=== PATIENT | male | born 1950 | race Caucasian/White ===

== ENCOUNTER 2017-06-11 08:38 | Emergency (ER) | payer OTHER ==
[~2017-06-11] VITALS: Ht 177.8 cm; Wt 62.9 kg
[2017-06-11 08:55] VITALS: Ht 177.8 cm; Wt 62.9 kg
[2017-06-11] MEDS ORDERED: METHYLPREDNISOLONE 125 MG VIAL IV STA (10:16)
[2017-06-11] MEDS ORDERED: ACETAMINOPHEN 325 MG TAB PO STA (10:16)
[2017-06-11] MEDS ORDERED: KETOROLAC TROMETHAMINE 30 MG/ML VIAL IV STA (10:16)
--- NOTE | 2017-06-11 10:22 | EMERGENCY ROOM VISIT NOTE ---
History Report prepared by Nakul: Liliana Rae Under the Supervision of: Dr. Frederic Enrique M.D. First contact with patient: 09:31 Chief Complaint: BACK PAIN Stated Complaint: BACK PAIN/INJURY, CONSTIPATION History of Present Illness The patient is a 67 year old white male with a past medical history of prostate infection who presents to the ED with a cc of worsening lower back pain beginning 6 days ago. Positive constipation, urinary frequency, passing gas. Negative fever, chills, unintended weight loss, numbness. 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 He had lower back pain previously with a prostate infection, but this pain is different. He had a small bowel movement yesterday. He has not had any falls. Patient admits to occasional alcohol use and chewing tobacco use. Patient denies IV drug use. Patient is currently not on any medications. Source of History: patient Onset: 6 days ago Position: back (lower) Quality: other (pain) Timing: worsening Associated Symptoms: + urinary symptoms, No fevers, No chills, No numbness Note: Pt reports constipation. Review of Systems See HPI for pertinent positives and negatives. A total of ten systems were reviewed and were otherwise negative. Family History Diabetes mellitus Heart disease Hypertension Social History Smoking Status: Never Smoker Marital Status: Occupation Status: employed Current/Historical Medications Scheduled Acetaminophen (Tylenol Arthritis Ext Rel), 325 MG PO UD Prednisone (Prednisone), 50 MG PO DAILY Ranitidine Hcl (Zantac), 75 MG PO DAILY Allergies Coded Allergies: Penicillins (Verified Allergy, Unknown, 06/11/17) Physical Exam Vital Signs Date Time Temp Pulse Resp B/P (MAP) Pulse Ox O2 Delivery O2 Flow Rate FiO2 06/11/17 10:59 48 18 169/91 98 Room Air 06/11/17 08:55 36.7 110 20 153/88 99 Room Air Physical Exam GENERAL: Awake, alert, well-appearing, NAD HENT: Normocephalic, atraumatic. EYES: Normal conjunctiva. Sclera non-icteric. NECK: Supple. No nuchal rigidity. FROM. RESPIRATORY: CTAB, no rhonchi, wheezing, crackles CARDIAC: RRR, no MRG ABDOMEN: Soft, NTND, BS+ MSK: No chest wall TTP, no LE edema, bilateral low back pain, no midline TTP, negative SLR b/l, negative ANNELISE test b/l, no pain with internal external rotation, good AROM/PROM, motor and sensory intact in b/l LEs, no saddle anesthesia. NEURO: GCS 15, CN 2-12 intact, moves all 4s on command SKIN: No rash or jaundice noted. Medical Decision & Procedures Laboratory Results 06/11/17 10:45 Red Blood Count 4.72, Mean Corpuscular Volume 93.2, Mean Corpuscular Hemoglobin 31.4, Mean Corpuscular Hemoglobin Concent 33.6, Mean Platelet Volume 9.4, Neutrophils (%) (Auto) 58.5, Lymphocytes (%) (Auto) 27.2, Monocytes (%) (Auto) 13.2, Eosinophils (%) (Auto) 0.7, Basophils (%) (Auto) 0.2, Neutrophils # (Auto ) 2.67, Lymphocytes # (Auto) 1.24, Monocytes # (Auto) 0.60, Eosinophils # (Auto ) 0.03, Basophils # (Auto) 0.01 06/11/17 10:45 Test 06/11/17 10:45 06/11/17 11:00 White Blood Count 4.56 K/uL (4.8-10.8) Red Blood Count 4.72 M/uL (4.7-6.1) Hemoglobin 14.8 g/dL (14.0-18.0) Hematocrit 44.0 % (42-52) Mean Corpuscular Volume 93.2 fL (80-100) Mean Corpuscular Hemoglobin 31.4 pg (25-34) Mean Corpuscular Hemoglobin Concent 33.6 g/dl (32-36) Platelet Count 196 K/uL (130-400) Mean Platelet Volume 9.4 fL (7.4-10.4) Neutrophils (%) (Auto) 58.5 % Lymphocytes (%) (Auto) 27.2 % Monocytes (%) (Auto) 13.2 % Eosinophils (%) (Auto) 0.7 % Basophils (%) (Auto) 0.2 % Neutrophils # (Auto) 2.67 K/uL (1.4-6.5) Lymphocytes # (Auto) 1.24 K/uL (1.2-3.4) Monocytes # (Auto) 0.60 K/uL (0.11-0.59) Eosinophils # (Auto) 0.03 K/uL (0-0.5) Basophils # (Auto) 0.01 K/uL (0-0.2) RDW Standard Deviation 45.7 fL (36.4-46.3) RDW Coefficient of Variation 13.4 % (11.5-14.5) Immature Granulocyte % (Auto) 0.2 % Immature Granulocyte # (Auto) 0.01 K/uL (0.00-0.02) Anion Gap 4.0 mmol/L (3-11) Est Creatinine Clear Calc Drug Dose 75.0 ml/min Estimated GFR () 104.5 Estimated GFR (Non- 90.2 BUN/Creatinine Ratio 10.0 (10-20) Calcium Level 9.4 mg/dl (8.5-10.1) Urine Color YELLOW Urine Appearance CLEAR (CLEAR) Urine pH 7.5 (4.5-7.5) Urine Specific [place] 1.008 (1.000-1.030) Urine Protein NEG (NEG) Urine Glucose (UA) NEG (NEG) Urine Ketones NEG (NEG) Urine Occult Blood NEG (NEG) Urine Nitrite NEG (NEG) Urine Bilirubin NEG (NEG) Urine Urobilinogen NEG (NEG) Urine Leukocyte Esterase NEG (NEG) Urine WBC (Auto) 0 /hpf (0-5) Urine RBC (Auto) 0-4 /hpf (0-4) Urine Hyaline Casts (Auto) 0 /lpf (0-5) Urine Epithelial Cells (Auto) 0-5 /lpf (0-5) Urine Bacteria (Auto) NEG (NEG) Laboratory results reviewed by me Medications Administered Medications (Trade) Dose Ordered Sig/Latasha Route Start Time Stop Time Status Last Admin Dose Admin Methylprednisolone Sodium Succinate (Solu-Medrol IV) 125 mg NOW STAT IV 06/11/17 10:16 06/11/17 10:17 DC 06/11/17 10:58 125 MG Ketorolac Tromethamine (Toradol Inj) 30 mg NOW STAT IV 06/11/17 10:16 06/11/17 10:17 DC 06/11/17 10:58 30 MG Acetaminophen (Tylenol Tab) 650 mg NOW STAT PO 06/11/17 10:16 06/11/17 10:17 DC 06/11/17 10:59 650 MG Diazepam (Valium Tab) 5 mg NOW ONCE PO 06/11/17 10:30 06/11/17 10:31 DC 06/11/17 10:59 5 MG ED Course 0954: The patient was evaluated in room A12B. A complete history and physical exam was performed. 1209: I reevaluated the patient. I discussed results and discharge instructions : he verbalized understanding and agreement. The patient is ready for discharge. Medical Decision Differential diagnosis: Etiologies such as musculoskeletal, disc herniation, fracture, aortic disease, metastatic disease, cord compression, discitis, infection, renal colic, gastrointestinal, acute exacerbation of chronic back pain, sciatica, cauda equina, as well as others were entertained. The patient is a 67 year old white male with a past medical history of prostate infection who presents to the ED with a cc of worsening lower back pain beginning 6 days ago. Patient was seen and evaluated at the bedside. Patient did not have any other high-risk low back pain sounds and was likely related to his recent lifting of trashbags. Patient had fairly normal blood work and a negative urinalysis. Patient did not have any fevers or chills or urinary or bowel incontinence. Patient had no saddle anesthesia. Patient's pain was much improved and he was actively sleeping upon reassessment. Patient was given strict follow-up, discharge, return precautions as well as reasons to come back. Patient was told to follow-up with his PCP for possible physical therapy and/or an orthopedic referral if needed. Patient agreed with plan of care patient was discharged home. Medication Reconcilliation Current Medication List: was personally reviewed by me Blood Pressure Screening Patient's blood pressure: Elevated blood pressure Blood pressure disposition: Referred to PCP Impression Primary Impression: Strain of lumbar region Scribe Attestation The scribe's documentation has been prepared under my direction and personally reviewed by me in its entirety. I confirm that the note above accurately reflects all work, treatment, procedures, and medical decision making performed by me. Departure Information Dispostion Home / Self-Care Prescriptions Ranitidine Hcl (ZANTAC) 75 Mg Tab 75 MG PO DAILY for 30 Days, #30 TAB Prov: Frederic Enrique M.D. 06/11/17 Prednisone (PREDNISONE) 50 Mg Tab 50 MG PO DAILY for 4 Days, TAB Prov: Frederic Enrique M.D. 06/11/17 Referrals Domingo Hoffman M.D. (PCP) Patient Instructions Back Pain - [facility], Back Pain Relieve, ED Low Back Pain Injury, Exercises Back Seated Rotation, Exercises Back Side Stretch, Exercises Lower Back Rotation, Addvocate Additional Instructions Please return to the emergency department if you have worsening or recurrent symptoms not amenable to at-home treatment. Please call for a follow-up appointment with her primary care physician. Please take your medications as prescribed. If you have other concerns and/or complaints please feel free to also call your primary care physician's office or return the ED for further evaluation, management, and treatment. You were found to have an elevated blood pressure today (>120 sytolic or >90 diastolic). Per medicare guidelines, you need to follow up with this blood pressure screening with your Primary Care Physician (PCP). For a new PCP call [phone]. You received narcotic or benzodiazepene medication while in the emergency room today. This is an addictive medication that may cause drowziness as well as constipation. Do not drive, operate heavy machinery, or drink alcohol under the influence of this medication. You may take 600 mg Ibuprofen every 6 hours as needed for pain with food for no more than 2 consecutive days. You may take tylenol 1000mg every 6 hours as needed for pain. You may take motrin and tylenol separately or at the same time. Continue strengthening exercises and stretches as you are able and discuss f/u w / PCP for physical therapy and or f/u w/ an orthopedist. You have been examined and treated today on an emergency basis only. This is not a substitute for, or an effort to provide, complete comprehensive medical care. It is impossible to recognize and treat all injuries or illnesses in a single emergency department visit. It is therefore important that you follow up closely with [facility]. Call as soon as possible for an appointment. Thank you for your time and consideration. I look forward to speaking with you again soon. Please don't hesitate to call us if you have any questions. Work Instructions Return To Work: 1 day Problem Qualifiers Primary Impression: Strain of lumbar region Encounter type: initial encounter Qualified Codes: S39.012A - Strain of muscle, fascia and tendon of lower back, initial encounter
[2017-06-11] MEDS ORDERED: DIAZEPAM 5MG TAB PO ONE (10:30)
[2017-06-11] MEDS ORDERED: ACET1TAB84 PO (10:49)
[2017-06-11 11:00] LABS: BASO % 0.2 %; BASO ABS # 0.01 K/uL (0-0.2); COMPLETE YES; EOS % 0.7 %; IG% 0.2 %; LYMPH % 27.2 %; LYMPH ABS # 1.24 K/uL (1.2-3.4); MEAN CELL VOLUME 93.2 fL (80-100); MEAN CORPUSCULAR HEMOGLOBIN 31.4 pg (25-34); MEAN CORPUSCULAR HGB CONC 33.6 g/dl (32-36); MEAN PLATELET VOLUME 9.4 fL (7.4-10.4); MONO % 13.2 %; NEUT % 58.5 %; PLATELET COUNT 196 K/uL (130-400); RED BLOOD COUNT 4.72 M/uL (4.7-6.1); WHITE BLOOD COUNT 4.56 K/uL (4.8-10.8)
[2017-06-11 11:16] LABS: CALCIUM 9.4 mg/dl (8.5-10.1); CREATININE 0.85 mg/dl (0.60-1.40); POTASSIUM 3.9 mmol/L (3.5-5.1)
[2017-06-11 11:38] LABS: URINE APPEARANCE CLEAR (CLEAR); URINE BILIRUBIN NEG (NEG); URINE COLOR YELLOW; URINE EPITHELIAL CELL AUTO 0-5 /lpf (0-5); URINE NITRITE NEG (NEG); URINE PH 7.5 (4.5-7.5); URINE SPECIFIC GRAVITY 1.008 (1.000-1.030); UROBILINOGEN NEG (NEG); ZZUR CULT IF INDIC CLEAN CATCH NO
[2017-06-11 11:40] LABS: MANUAL MICROSCOPIC REQUIRED? NO; REVIEW REQ? NO
[2017-06-11] MEDS ORDERED: RANITAB33 PO (12:17)
[2017-06-11] MEDS ORDERED: PRED50TA PO (12:17)
[2017-06-11 12:45] VITALS: BP 145/89; PULSE 55; TEMP 36.7; O2SAT 98
== END 2017-06-11 13:05 | disposition home or self-care (01) ==
LOC: C.EDB 08:44 → C.EDA 13:05
DX: S39.012A Strain of muscle, fascia and tendon of lower back, initial encounter (principal); X58.XXXA Exposure to other specified factors, initial encounter; Z88.0 Allergy status to penicillin; Z83.3 Family history of diabetes mellitus; Z82.49 Family history of ischemic heart disease and other diseases of the circulatory system

== ENCOUNTER 2017-10-09 11:11 | Inpatient (IN) | payer OTHER ==
[~2017-10-09] VITALS: Ht 177.8 cm; Wt 59.1 kg
[2017-10-09] VITALS (35 sets, daily range): BP systolic 103–171; BP diastolic 58–94; PULSE 58–98; TEMP 36.9; O2SAT 93–100; Ht 177.8 cm; Wt 59.1 kg
[~2017-10-09 11:11] MED LIST: ACET1TAB84 PO
[2017-10-09] MEDS ORDERED: SODIUM CHLORIDE 0.9% 1000ML 1,000 ML IV SCH (11:12)
--- NOTE | 2017-10-09 11:39 | DIAGNOSTIC IMAGING REPORT ---
CT HEAD WITHOUT CONTRAST (CT) CLINICAL HISTORY: Stroke COMPARISON STUDY: No previous studies for comparison. TECHNIQUE: Axial CT of the brain is performed from the vertex to the skull base. IV contrast was not administered for this examination. A dose lowering technique was utilized adhering to the principles of ALARA. CT DOSE: FINDINGS: No intra or extra-axial mass lesions are visualized. There is no CT evidence of acute cortical infarction. There is no evidence of midline shift. There is no acute hemorrhage. No calvarial fractures are visualized. There are minimal white matter hypodensities likely on a small vessel basis. There is no evidence of pathologic ventricular dilatation. There is no evidence of acute sinusitis IMPRESSION: No acute intracranial findings Electronically signed by: Castro Reyna M.D. 10/09/2017 11:38 AM Dictated Date/Time: 10/09/2017 11:37 AM
[2017-10-09 11:41] LABS: BASO % 0.1 %; BASO ABS # 0.01 K/uL (0-0.2); EOS % 0.1 %; EOS ABS # 0.01 K/uL (0-0.5); HEMATOCRIT 43.8 % (42-52); HEMOGLOBIN 15.2 g/dL (14.0-18.0); IG# 0.01 K/uL (0.00-0.02); LYMPH % 13.8 %; LYMPH ABS # 0.99 K/uL (1.2-3.4); MEAN CELL VOLUME 92.8 fL (80-100); MEAN CORPUSCULAR HEMOGLOBIN 32.2 pg (25-34); MEAN CORPUSCULAR HGB CONC 34.7 g/dl (32-36); MEAN PLATELET VOLUME 9.9 fL (7.4-10.4); MONO % 4.1 %; MONO ABS # 0.29 K/uL (0.11-0.59); NEUT % 81.8 %; NEUT ABS # 5.85 K/uL (1.4-6.5); PLATELET COUNT 203 K/uL (130-400); RED CELL DISTRIBUTION WIDTH CV 13.7 % (11.5-14.5); RED CELL DISTRIBUTION WIDTH SD 46.7 fL (36.4-46.3); WHITE BLOOD COUNT 7.16 K/uL (4.8-10.8)
[2017-10-09 11:51] LABS: PTT PATIENT 22.9 SECONDS (21.0-31.0)
--- NOTE | 2017-10-09 11:55 | EMERGENCY ROOM VISIT NOTE ---
History Report prepared by Nakul: Jarred De La Cruz Under the Supervision of: Brian PzaO. First contact with patient: 11:12 Stated Complaint: CVA SYMPTOMS History of Present Illness The patient is a 67 year old male who presents to the Emergency Room with complaints of constant left sided weakness occurring around 0930 this morning. The patient states that he was picking up garbage outside, and he got some chest pain around 0800. Afterwards he became weak on his left side. The patient additionally states that he had neck pain, though this has resolved, and he is having some left knee pain and confusion. He states that prior to the weakness and pain he was feeling fine this morning. The patient states that the pain in his left chest does not radiate anywhere else. He has no history of strokes in the past. The patient states that he smokes some cigarettes in the morning, he uses chewing tobacco, and he drinks a couple of beers per day. The patient is denying any abdominal pain or back pain. Source of History: patient Onset: 0800 Position: other (left side) Quality: other (weakness) Timing: constant Associated Symptoms: + neck pain, + chest pain, No abdominal pain, No back pain Review of Systems See HPI for pertinent positives & negatives. A total of 10 systems reviewed and were otherwise negative. Past Medical & Surgical Medical Problems: (1) Prostate infection Family History Diabetes mellitus Heart disease Hypertension Social History Smoking Status: Never Smoker Marital Status: Housing Status: lives with family Occupation Status: retired Current/Historical Medications Scheduled Acetaminophen (Tylenol Arthritis Ext Rel), 325 MG PO UD Allergies Coded Allergies: Penicillins (Verified Allergy, Unknown, 10/09/17) Physical Exam Vital Signs Date Time Temp Pulse Resp B/P (MAP) Pulse Ox O2 Delivery O2 Flow Rate FiO2 10/09/17 13:30 74 153/87 10/09/17 13:18 79 163/88 10/09/17 13:01 82 18 168/98 10/09/17 12:44 84 151/92 10/09/17 12:30 84 18 149/81 10/09/17 12:15 87 18 156/94 10/09/17 12:05 90 18 175/99 10/09/17 11:55 90 18 180/111 10/09/17 11:42 80 20 150/88 100 Room Air 10/09/17 11:40 83 10/09/17 11:26 36.5 79 22 182/90 99 Room Air Physical Exam GENERAL: Patient is awake, alert, somewhat anxious appearing but overall comfortable. EYES: The conjunctivae are clear. The pupils are round and reactive. EARS, NOSE, MOUTH AND THROAT: The nose is without any evidence of any deformity. Mucous membranes are moist tongue is midline NECK: No bruit to auscultation. The neck is nontender and supple. RESPIRATORY: Normal respiratory effort is noted there is no evidence of wheezing rhonchi or rales CARDIOVASCULAR: Regular rate and rhythm noted there no murmurs rubs or gallops normal S1 normal S2 GASTROINTESTINAL: The abdomen is soft. Bowel sounds are present in all quadrants. Abdomen is nontender MUSCULOSKELETAL/EXTREMITIES: There is no evidence of gross deformity full range of motion is noted in the hips and shoulders SKIN: Skin is warm and diaphoretic. No pedal edema noted. NEUROLOGIC: Speech was pressured. There was a questionable facial droop noted on the left involving the corner of the mouth. 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 He is unable to lift the left leg. Medical Decision & Procedures ER Provider Diagnostic Interpretation: Radiology results as stated below per my review and radiologist interpretation: CT HEAD WITHOUT CONTRAST (CT) CLINICAL HISTORY: Stroke COMPARISON STUDY: No previous studies for comparison. TECHNIQUE: Axial CT of the brain is performed from the vertex to the skull base. IV contrast was not administered for this examination. A dose lowering technique was utilized adhering to the principles of ALARA. CT DOSE: FINDINGS: No intra or extra-axial mass lesions are visualized. There is no CT evidence of acute cortical infarction. There is no evidence of midline shift. There is no acute hemorrhage. No calvarial fractures are visualized. There are minimal white matter hypodensities likely on a small vessel basis. There is no evidence of pathologic ventricular dilatation. There is no evidence of acute sinusitis IMPRESSION: No acute intracranial findings Electronically signed by: Castro Reyna M.D. 10/09/2017 11:38 AM Dictated Date/Time: 10/09/2017 11:37 AM CHEST ONE VIEW PORTABLE HISTORY: Stroke COMPARISON: Chest 07/18/2010. FINDINGS: No pleural effusions. No pneumothorax. The heart is normal in size. The lungs are clear. The lungs are mildly hyperexpanded. IMPRESSION: No acute process. Electronically signed by: Gallo Stafford M.D. 10/09/2017 12:08 PM Dictated Date/Time: 10/09/2017 12:[address] ANGIOGRAM OF THE CHEST COMBO CLINICAL HISTORY: Atypical chest pain. COMPARISON STUDY: Chest x-ray dated 10/09/2017. TECHNIQUE: Before and following the IV administration of 119 cc of Optiray 320, CT angiogram of the chest was performed from the thoracic inlet to the upper abdomen utilizing the dissection protocol. Images are reviewed in the axial, sagittal, and coronal planes. 3-D MIPS images are created and assessed. IV contrast was administered without complication. A dose lowering technique was utilized adhering to the principles of ALARA. The examination is degraded by streak artifact from the patient's arms which could not be elevated above the chest. FINDINGS: Thyroid: Imaged portions of the thyroid gland are normal in size and attenuation. Thoracic aorta: No intramural hematoma is seen on the unenhanced series. There is mild atherosclerotic calcification of the thoracic aorta, which is normal in caliber and demonstrates standard 3-vessel arch anatomy. No dissection is seen. The arch vessels are widely patent. Pulmonary vasculature: The pulmonary trunk is normal in caliber. There are no central filling defects identified in the pulmonary vessels to suggest pulmonary embolus. Note that this examination was not specifically protocoled to assess for pulmonary emboli. Heart: The heart is normal in size and without pericardial effusion. There are coronary artery calcifications. Lungs and pleural spaces: Evaluation of the lung parenchyma is modestly degraded by motion artifact. Mild emphysematous change is noted. Biapical scarring is observed. There is minimal dependent atelectasis. No airspace consolidation or pleural effusion is seen. The trachea and central airways are clear. A 6 mm right middle lobe pulmonary nodule is seen on image #177 of the unenhanced series. A small fat-containing Bochdalek hernia is seen at the right lung base. Mediastinum: There is no mediastinal lymphadenopathy. Merlene: Clear. Axillae: There is no axillary lymphadenopathy. Upper abdomen: Partially visualized upper abdominal viscera is within normal limits. Skeletal structures: No lytic or blastic bony lesions are seen. Fusion hardware is seen in the lower cervical region. IMPRESSION: 1. Unremarkable CT angiogram of the thoracic aorta. 2. Mild emphysema. 3. No airspace consolidation or pleural effusion is identified. 4. There is an indeterminant 6 mm right middle lobe pulmonary nodule. This can be followed as per the Fleischner criteria. See below. 5. Additional findings as above. Please refer to below summary of Fleischner criteria recommendations for follow-up of incidental CT nodules (Prateek Dodson, Guidelines for management of small pulmonary nodules detected on CT scans: A statement from the Fleischner Society, Radiology 237: [phone].) SOLID NODULES Solitary nodule size: <6 mm * low risk patients: no follow-up needed * high risk patients: optional CT at 12 months Solitary nodule size: 6-8 mm * low risk patients: follow-up at 6-12 months, then consider further follow-up at 18-24 months * high risk patients: initial follow-up CT at 6-12 months and then at 18-24 months if no change Solitary nodule size: >8 mm * either low or high risk patients - consider follow-up CT at 3 months, and/or CT-PET, and/or biopsy Multiple nodules size: <6 mm * low risk patients: no routine follow-up * high risk patients: optional CT at 12 months Multiple nodules size: 6-8 mm * low risk patients: follow-up at 3-6 months, then consider further follow-up at 18-24 months * high risk patients: follow-up at 3-6 months, then at 18-24 months if no change Multiple nodules size: >8 mm * low risk patients: follow-up at 3-6 months, then consider further follow-up at 18-24 months * high risk patients: follow-up at 3-6 months, then at 18-24 months if no change Note: newly detected indeterminate nodule in persons 35 years of age or older. * low risk patients: minimal or absent history of smoking and/or other known risk factors * high risk patients: history of smoking or of other known risk factors (e.g. first degree relative with lung cancer, or exposure to asbestos, radon, uranium) * if a nodule up to 8 mm is partly solid or is ground glass further follow-up is required after 24 months to exclude possible slow growing adenocarcinoma (ALEXIS) SUBSOLID NODULES Solitary pure ground-glass nodule * nodule size <6 mm - no CT follow-up required * nodule size >=6 mm - follow-up CT at 6-12 months, then every 2 years until 5 years Solitary part-solid nodule * nodule size <6 mm - no CT follow-up required * nodule size >=6 mm - follow-up CT at 3-6 months. If unchanged, and solid component remains <6 mm, then annual follow-up for 5 years Multiple subsolid nodules * nodule size <6 mm - follow-up CT at 3-6 months, consider further follow-up at 2 and 4 years if stable * nodule size >=6 mm - follow-up CT at 3-6 months, subsequent management based on the most suspicious nodule(s) Electronically signed by: Fidencio Peng M.D. 10/09/2017 11:56 AM Dictated Date/Time: 10/09/2017 11:[address] ANGIOGRAM OF THE BRAIN CLINICAL HISTORY: Left-sided weakness. COMPARISON STUDY: Unenhanced CT of the brain dated 10/09/2017. TECHNIQUE: Following the IV administration of 119 cc of Optiray 320, CT angiogram of the brain was performed from the skull base to the vertex. Images are reviewed in the axial, sagittal, and coronal planes. 3-D MIPS images are created and assessed. IV contrast was administered without complication. A dose lowering technique was utilized adhering to the principles of ALARA. FINDINGS: Brain parenchyma: There are age-related involutional changes noting mild subcortical and periventricular microangiopathic disease. There is no hemorrhage, mass effect, or evidence of acute territorial ischemia by CT criteria. There is no evidence of enhancing mass lesion on the angiogram phase images. No extra-axial fluid collection is seen. Flores-white matter differentiation is preserved. Ventricles, sulci, and cisterns: Prominent secondary to involutional change. CT angiogram of the brain: There are tiny posterior communicating arteries. The internal carotid arteries are widely patent, as are the anterior and middle cerebral arteries. The vertebrobasilar system and posterior cerebral arteries are widely patent. The vertebral arteries are codominant. There is no aneurysm, high-grade stenosis, or focal vessel cutoff identified throughout the intracranial circulation. Dural sinuses: Clear as visualized. Orbits: The bony orbits are intact. The orbital contents are normal as visualized. Sinuses and mastoids: The visualized paranasal sinuses are clear. The mastoid air cells are well pneumatized. Calvarium: Unremarkable. IMPRESSION: 1. There is no hemorrhage, mass effect, or evidence of acute territorial ischemia by CT criteria. 2. Unremarkable CT angiogram of the brain. Electronically signed by: Fidencio Peng M.D. 10/09/2017 12:08 PM Dictated Date/Time: 10/09/2017 12:05 PM NECK CTA HISTORY: Left-sided weakness. TECHNIQUE: Multiaxial CT images of the neck were performed following the intravenous administration of contrast to evaluate the major cervical vessels. Maximum intensity projection images were also obtained. All measurements were calculated based on NASCET criteria. A dose lowering technique was utilized adhering to the principles of ALARA. COMPARISON STUDY: None. FINDINGS: The aortic arch and proximal great vessels are widely patent. No central venous stenosis or occlusion within the bilateral common carotid or bilobed vertebral arteries. Mild focal dilatation within the distal left vertebral artery at the C2 level which measures up to 5 mm in diameter. This suggests a small fusiform aneurysm. Moderate amount of calcified and noncalcified plaque within the right carotid bulb a large amount of calcified plaque within the left carotid bulb. There is approximately 50% focal stenosis at the origin of the right internal carotid artery due to the atherosclerotic plaque. There is approximately 40% stenosis at the proximal 1.5 cm of the left internal carotid artery due to the calcified plaque. The mid to distal bilateral internal carotid arteries are widely patent. Anterior cervical discectomy and fusion from C5 through C7. IMPRESSION: 1. Approximately 50% focal stenosis at the origin of the right internal carotid artery and approximately 40% stenosis involving the proximal left internal carotid artery as described above. 2. 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 Electronically signed by: Gallo Stafford M.D. 10/09/2017 11:55 AM Dictated Date/Time: 10/09/2017 11:48 AM Laboratory Results Test 10/09/17 00:00 10/09/17 10:44 10/09/17 11:19 10/09/17 11:26 Urine Color YELLOW Urine Appearance CLEAR (CLEAR) Urine pH 8.5 (4.5-7.5) Urine Specific [place] 1.029 (1.000-1.030) Urine Protein NEG (NEG) Urine Glucose (UA) NEG (NEG) Urine Ketones TRACE (NEG) Urine Occult Blood NEG (NEG) Urine Nitrite NEG (NEG) Urine Bilirubin NEG (NEG) Urine Urobilinogen NEG (NEG) Urine Leukocyte Esterase SMALL (NEG) Urine WBC (Auto) 1-5 /hpf (0-5) Urine RBC (Auto) 0-4 /hpf (0-4) Urine Hyaline Casts (Auto) 1-5 /lpf (0-5) Urine Epithelial Cells (Auto) 20-30 /lpf (0-5) Urine Bacteria (Auto) NEG (NEG) Urine Opiates Screen NEG (NEG) Urine Methadone, Qualitative NEG (NEG) Urine Barbiturates NEG (NEG) Urine Phencyclidine (PCP) Level NEG (NEG) Ur Amphetamine/Methamphetamine NEG (NEG) MDMA (Ecstasy) Screen NEG (NEG) Urine Benzodiazepines Screen NEG (NEG) Urine Cocaine Metabolite NEG (NEG) Urine Marijuana (THC) NEG (NEG) Prothrombin Time 10.0 SECONDS (9.0-12.0) Prothromb Time International Ratio 1.0 (0.9-1.1) Activated Partial Thromboplast Time 22.9 SECONDS (21.0-31.0) Partial Thromboplastin Ratio 0.9 Estimated Average Glucose 114 mg/dl Hemoglobin A1c 5.6 % (4.5-5.6) Creatine Kinase MB 1.2 ng/ml (0.5-3.6) Creatine Kinase MB Ratio 1.3 (0-3.0) Bedside Glucose 122 mg/dl (70-99) Bedside Hemoglobin 17.0 g/dl (14.0-18.0) Bedside Hematocrit 50 % (42-52) Bedside Sodium 135 mEq/L (135-144) Bedside Potassium 4.0 mEq/L (3.3-5.0) Bedside Chloride 100 mEq/L (101-112) Bedside Total CO2 20 mEq/l (24-31) Bedside Blood Urea Nitrogen 13 mg/dl (7-18) Bedside Creatinine 1.4 mg/dl (0.6-1.3) Bedside Glucose (other) 139 mg/dl (70-99) Bedside Ionized Calcium (Deangelo) 1.13 mmol/l (1.12-1.32) Test 10/09/17 11:48 Bedside Prothrombin Time INR 0.9 (0.9-1.1) Laboratory results per my review. Medications Administered Medications (Trade) Dose Ordered Sig/Latasha Route Start Time Stop Time Status Last Admin Dose Admin Alteplase, Recombinant 54 mg/ Empty Bag 54 ml @ 54 mls/hr TODAY@1215 IV 10/09/17 12:15 10/09/17 13:14 DC 10/09/17 12:13 54 MLS/HR Alteplase, Recombinant 6 mg/ Syringe 6 ml @ 6 mls/min TODAY@1215 IV 10/09/17 12:15 10/09/17 14:00 DC 10/09/17 12:11 6 MLS/MIN Sodium Chloride 500 ml @ 999 mls/hr Q31M STAT IV 10/09/17 12:40 10/09/17 13:10 DC 10/09/17 12:43 999 MLS/HR ECG Indication: chest pain, other (stroke symptoms) Rate (beats per minute): 77 Rhythm: normal sinus Findings: peaked T-waves (anterior), no ectopy, other (No acute ST segment abnormality) Comparison ECG Date: 10/11/16 Change: no significant change ED Course 1112: The patient was evaluated in room C4. A complete history and physical examination were performed. I ordered NSS 1,000 ml @ 50 mls/hr IV 1150: I discussed the patient's case with Dr. Phelan, Stroke Neurology, and she is going to talk to the patient via Tele Stroke 1200: I reevaluated the patient, and he was talking to Dr. Phelan 1215: Nicardipine HCl 25mg/ Sodium Chloride IV, Alteplase Recombinant 6mg 6ml @ 6ml/min IV, Alteplase Recombinant 54ml @ 54mls/hr IV 1218: I reassessed the patient, and the TPA was being administered 1240: Upon reevaluation, the patient is doing better and getting some strength back on the left. The patient is going to be evaluated by the hospitalist. 1240: NSS 500 ml @ 999 mls/hr IV Medical Decision Differential diagnosis: Etiologies such as metabolic, infection, hypo/hyperglycemia, electrolyte abnormalities, cardiac sources, intracerebral event, toxicologic, neurologic, as well as others were entertained. Nursing notes reviewed. Additional history is obtained from the prehospital personnel. Additional history is obtained from the patient's significant other. The patient is a 67-year-old male who presented to the emergency department for an evaluation of possible stroke. The patient had acute weakness on his left side when he was at work. The patient had significantly diminished strength in the left upper as well as left lower extremity. He also had pressured speech. His condition was significantly changed from his baseline according to his significant other. The patient also states that he started noticing left-sided chest pain. The patient was made a stroke alert immediately. I was also very concerned that this could represent a vascular abnormality given the patient's onset of symptoms with chest pain. The patient was felt to be a good candidate for TPA after his radiographic studies were reviewed with the [facility] stroke neurologist. The patient received TPA. He was reevaluated multiple times. He was also given IV antihypertensive medication. The patient continued to improve while he was in the emergency department. I discussed the patient's laboratory and radiographic studies with him. I also discussed his case with the on-call [facility] hospitalist. They have agreed to evaluate the patient in the emergency department for further management and disposition. Medication Reconcilliation Current Medication List: was personally reviewed by me Blood Pressure Screening Patient's blood pressure: Elevated blood pressure Monitored by the hospitalist Consults Time Called: 1145 Consulting Physician: Dr. Phelan Returned Call: 1150 I discussed the patient's case with Dr. Phelan, Stroke Neurology, and she is going to talk to the patient via Tele Stroke Impression Primary Impression: Stroke Additional Impression: Chest pain Critical Care I have personally spent greater than 60 minutes of critical care time in the direct management of this patient. This includes bedside care, interpretation of diagnostic studies, and testing, discussion with consultants, patient, and family members, and other required patient management activities. This 60 minutes is in excess of all separately billable procedures. Scribe Attestation The scribe's documentation has been prepared under my direction and personally reviewed by me in its entirety. I confirm that the note above accurately reflects all work, treatment, procedures, and medical decision making performed by me. Departure Information Dispostion Being Evaluated By Hospitalist Referrals Domingo Hoffman M.D. (PCP) Stroke History Time Last Known Well 929 Stroke t-PA Criteria Reviewed Meets criteria for t-PA Reason t-PA Not Given Treatment provided - N/A Problem Qualifiers Primary Impression: Stroke CVA mechanism: unspecified Qualified Codes: I63.9 - Cerebral infarction, unspecified Additional Impression: Chest pain Chest pain type: unspecified Qualified Codes: R07.9 - Chest pain, unspecified
[2017-10-09 11:56] LABS: BLOOD UREA NITROGEN 13 mg/dl (7-18); CARBON DIOXIDE 22 mmol/L (21-32); CREATININE 1.55 mg/dl (0.60-1.40); GLUCOSE 138 mg/dl (70-99); SODIUM 133 mmol/L (136-145)
[2017-10-09 12:01] LABS: CKMB 1.2 ng/ml (0.5-3.6)
--- NOTE | 2017-10-09 12:09 | DIAGNOSTIC IMAGING REPORT ---
CHEST ONE VIEW PORTABLE HISTORY: Stroke COMPARISON: Chest 07/18/2010. FINDINGS: No pleural effusions. No pneumothorax. The heart is normal in size. The lungs are clear. The lungs are mildly hyperexpanded. IMPRESSION: No acute process. Electronically signed by: Gallo Stafford M.D. 10/09/2017 12:08 PM Dictated Date/Time: 10/09/2017 12:08 PM
--- NOTE | 2017-10-09 12:09 | DIAGNOSTIC IMAGING REPORT ---
CT ANGIOGRAM OF THE BRAIN CLINICAL HISTORY: Left-sided weakness. COMPARISON STUDY: Unenhanced CT of the brain dated 10/09/2017. TECHNIQUE: Following the IV administration of 119 cc of Optiray 320, CT angiogram of the brain was performed from the skull base to the vertex. Images are reviewed in the axial, sagittal, and coronal planes. 3-D MIPS images are created and assessed. IV contrast was administered without complication. A dose lowering technique was utilized adhering to the principles of ALARA. FINDINGS: Brain parenchyma: There are age-related involutional changes noting mild subcortical and periventricular microangiopathic disease. There is no hemorrhage, mass effect, or evidence of acute territorial ischemia by CT criteria. There is no evidence of enhancing mass lesion on the angiogram phase images. No extra-axial fluid collection is seen. Flores-white matter differentiation is preserved. Ventricles, sulci, and cisterns: Prominent secondary to involutional change. CT angiogram of the brain: There are tiny posterior communicating arteries. The internal carotid arteries are widely patent, as are the anterior and middle cerebral arteries. The vertebrobasilar system and posterior cerebral arteries are widely patent. The vertebral arteries are codominant. There is no aneurysm, high-grade stenosis, or focal vessel cutoff identified throughout the intracranial circulation. Dural sinuses: Clear as visualized. Orbits: The bony orbits are intact. The orbital contents are normal as visualized. Sinuses and mastoids: The visualized paranasal sinuses are clear. The mastoid air cells are well pneumatized. Calvarium: Unremarkable. IMPRESSION: 1. There is no hemorrhage, mass effect, or evidence of acute territorial ischemia by CT criteria. 2. Unremarkable CT angiogram of the brain. Electronically signed by: Fidecnio Peng M.D. 10/09/2017 12:08 PM Dictated Date/Time: 10/09/2017 12:05 PM
[2017-10-09] MEDS ORDERED: NiCARDipine IV 25 MG in SODIUM CHLORIDE 0.9% 250ML 240 ML IV PRN (12:15)
[2017-10-09] MEDS ORDERED: ALTEPLASE IV SCH ×2 (12:15)
[2017-10-09] MEDS ORDERED: SET 2260-0500 IV ONE (12:15)
[2017-10-09] MEDS ORDERED: RECOMBINANT IV SCH ×2 (12:15)
[2017-10-09] MEDS ORDERED: SODIUM CHLORIDE 0.9% 500ML 500 ML IV STA (12:40)
[2017-10-09 13:09] LABS: ISTAT CREATININE 1.4 mg/dl (0.6-1.3); ISTAT IONIZED CALCIUM 1.13 mmol/l (1.12-1.32)
[2017-10-09] MEDS ORDERED: ONDANSETRON INJ 2 MG/ML 2 ML VIAL IV PRN (13:15)
[2017-10-09] MEDS ORDERED: ACETAMINOPHEN 325 MG TAB PO PRN (13:15)
[2017-10-09] MEDS ORDERED: ALUMINUM/MAGNESIUM/SIMETH (MAALOX MAX) 30 ML UDC PO PRN (13:15)
[2017-10-09] MEDS ORDERED: PHARMACIST DISCHARGE MED REC CONSULT PRN (13:15)
[2017-10-09] MEDS ORDERED: MAGNESIUM HYDROXIDE SUSP 30 ML UDC PO PRN (13:15)
[2017-10-09 14:22] LABS: HEMOGLOBIN A1C 5.6 % (4.5-5.6)
--- NOTE | 2017-10-09 15:09 | Medical Student: [facility] ---
Med Student History & Physical Date & Time of Service: Oct 09, 2017 at 14:38 Chief Complaint: Cva Symptoms Primary Care Physician: Domingo Hoffman M.D. History of Present Illness Source: patient, family Robin Vidal is a 67 year old gentleman who was brought to the ED by ambulance after complaining of increased heart rate, left sided numbness and weakness, blurry vision in left eye, dizziness, and confusion/disorientation while working today. 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 Today, around 9:30-10am, he noticed that all of a sudden he wasn't able to lift up the trash bags. He stopped and felt like he needed a break. He felt like "he just got done running 2 miles" because of how fast and hard his heart was beating. He had chest pain that he described as "intense pressure - like a heavy weight on my chest". He also noticed that along with the weakness of his left arm and leg, he had blurry vision. He was dizzy feeling, and became confused and disoriented. These symptoms happened quite quickly and nearly at the same time of first symptom onset. Family also mentioned he had some slurred speech initially. Someone in the truck called the ambulance which brought him here. In the ambulance he remembers being disoriented and not knowing where he was. He was given a anti-clotting medication in the ED shortly before I arrived there , secondary to suspected stroke. At the time of my examination, some of the symptoms he previously complained of had normalized. His past medical history is basically non-existent. He describes himself as a healthy person. He also has not seen his primary care doctor ("because he hasn' t had a reason to") for what he believes is 5-6 years - family believes it is closer to 8 years. He carries no current medical diagnoses at this time. The only medication he takes is acetaminophen on occasion. He believes at his last physical, although its been a number of years ago, that is lipid panel was good and healthy. During my visit he denies a recent history nearly all in my review of symptoms, denying: fever, chills, sweats, weight loss, weakness, fatigue, worsening vision , eye pain, changes to vision or hearing, trouble swallowing, epistaxis, tinnitus, dental problems, nasal symptoms, cough, sputum production, wheezing, shortness of breath, dyspnea on exertion, hemoptysis, chest pain, edema, claudication, palpitations, abdominal pain, nausea, vomiting, changes in bowel habits, joint or muscle pain, changes in urination, rash or other skin findings. He states his mood has been good and denies depression or anxiety. He did admit to having chest pain, dizziness/lightheadedness, vision changes/ blurry vision, sweating, tachycardia, shortness of breath, and disorientation/ confusion at the time of this event this morning. 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 He smokes a couple of cigarettes every day, with his morning coffee. He uses smokeless tobacco in the form of chew and snuff. He tells me that he usually has chew in his mouth during the day. When he was in the service, he said he smoked more frequently (but the amount varied), this was for a period of several years, approx. [id number] He drinks alcohol, admitting to consuming 3 beers socially, after dinnertime, every day. He lives with his in [place], [place]. Smoking Status: Current Every Day Smoker Smokeless Tobacco Use: Yes Alcohol Use: socially Drug Use: none Marital Status: Housing status: lives with family Occupational Status: employed Immunizations History of Influenza Vaccine: Yes Influenza Vaccine Date: Jul 18, 2010 History of Tetanus Vaccine?: No History of Pneumococcal: No History of Hepatitis B Vaccine: No Allergies Coded Allergies: Penicillins (Verified Allergy, Unknown, 10/09/17) Medications Acetaminophen (Tylenol Arthritis Ext Rel), 325 MG PO UD Review of Systems Constitutional: + sweats, + weakness, No fever, No chills, No weight loss, No fatigue Eyes: + worsening of vision, No eye pain, No redness, No discharge, No diplopia ENT: No hearing loss, No unusual epistaxis, No nasal symptoms, No sore throat, No tinnitus, No dental problems, No trouble swallowing Respiratory: + shortness of breath, + dyspnea at rest, No cough, No sputum, No wheezing, No dyspnea on exertion, No hemoptysis Cardiovascular: + chest pain, No orthopnea, No PND, No edema, No claudication, No palpitations Abdomen: No pain, No nausea, No vomiting, No diarrhea, No constipation, No GI bleeding Musculoskeletal: No joint pain, No muscle pain, No swelling, No calf pain Genitourinary - Male: No hematuria, No dysuria, No urinary frequency, No urinary urgency, No urinary hesitancy, No urinary retention, No urinary incontinence Neurologic: + weakness, + numbness/tingling, No memory loss, No paralysis, No vertigo, No balance problems Psychiatric: No depression symptoms, No anhedonism, No anxiety Endocrine: No fatigue, No excessive thirst, No excessive urination Hematologic / Lymphatic: No abnormal bleeding/bruising, No night sweats Integumentary: No rash, No itch, No new/changing skin lesions, No color change , No bleeding Physical Exam Vital Signs (24 Hours) Date Time Temp Pulse Resp B/P (MAP) Pulse Ox O2 Delivery O2 Flow Rate FiO2 10/09/17 14:00 79 149/82 10/09/17 13:44 80 153/90 10/09/17 13:30 74 153/87 10/09/17 13:18 79 163/88 10/09/17 13:01 82 18 168/98 10/09/17 12:44 84 151/92 10/09/17 12:30 84 18 149/81 10/09/17 12:15 87 18 156/94 10/09/17 12:05 90 18 175/99 10/09/17 11:55 90 18 180/111 10/09/17 11:42 80 20 150/88 100 Room Air 10/09/17 11:40 83 10/09/17 11:26 36.5 79 22 182/90 99 Room Air General Appearance: WD/WN, no apparent distress Head: normocephalic, atraumatic Eyes: normal inspection, PERRL, EOMI, sclerae normal ENT: normal ENT inspection, hearing grossly normal (did mention hearing is worse in left ear (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)), TMs normal, pharynx normal Neck: supple, no adenopathy, thyroid normal, no JVD, no carotid bruits, trachea midline Respiratory/Chest: chest non-tender, lungs clear, normal breath sounds, no respiratory distress, no accessory muscle use Cardiovascular: regular rate, rhythm, no edema, no gallop, no JVD, no murmur, normal peripheral pulses, + abnormal peripheral pulses (lower extremity peripheral pedial pulses weaker than upper extremity pulses ) Abdomen/GI: normal bowel sounds, non tender, soft, no organomegaly, no pulsatile mass Extremities/Musculoskelatal: normal inspection, no calf tenderness, no pedal edema, normal range of motion, non-tender, + slow capillary refill (slow capillary refill in toes bilaterally) 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, no motor/sensory deficits, alert, normal mood/affect, normal reflexes, oriented x 3 Skin: normal color, no rash, + pertinent finding (cool feet bilaterally) Diagnostics Laboratory Results Results Past 24 Hours Test 10/09/17 00:00 10/09/17 10:44 10/09/17 11:19 10/09/17 11:26 Range/Units Urine Color YELLOW Urine Appearance CLEAR CLEAR Urine pH 8.5 4.5-7.5 Urine Specific [place] 1.029 1.000-1.030 Urine Protein NEG NEG Urine Glucose (UA) NEG NEG Urine Ketones TRACE NEG Urine Occult Blood NEG NEG Urine Nitrite NEG NEG Urine Bilirubin NEG NEG Urine Urobilinogen NEG NEG Urine Leukocyte Esterase SMALL NEG Urine WBC (Auto) 1-5 0-5 /hpf Urine RBC (Auto) 0-4 0-4 /hpf Urine Hyaline Casts (Auto) 1-5 0-5 /lpf Urine Epithelial Cells (Auto) 20-30 0-5 /lpf Urine Bacteria (Auto) NEG NEG Urine Opiates Screen NEG NEG Urine Methadone, Qualitative NEG NEG Urine Barbiturates NEG NEG Urine Phencyclidine (PCP) Level NEG NEG Ur Amphetamine/Methamphetamine NEG NEG MDMA (Ecstasy) Screen NEG NEG Urine Benzodiazepines Screen NEG NEG Urine Cocaine Metabolite NEG NEG Urine Marijuana (THC) NEG NEG White Blood Count 7.16 4.8-10.8 K/uL Red Blood Count 4.72 4.7-6.1 M/uL Hemoglobin 15.2 14.0-18.0 g/dL Hematocrit 43.8 42-52 % Mean Corpuscular Volume 92.8 80-100 fL Mean Corpuscular Hemoglobin 32.2 25-34 pg Mean Corpuscular Hemoglobin Concent 34.7 32-36 g/dl Platelet Count 203 130-400 K/uL Mean Platelet Volume 9.9 7.4-10.4 fL Neutrophils (%) (Auto) 81.8 % Lymphocytes (%) (Auto) 13.8 % Monocytes (%) (Auto) 4.1 % Eosinophils (%) (Auto) 0.1 % Basophils (%) (Auto) 0.1 % Neutrophils # (Auto) 5.85 1.4-6.5 K/uL Lymphocytes # (Auto) 0.99 1.2-3.4 K/uL Monocytes # (Auto) 0.29 0.11-0.59 K/uL Eosinophils # (Auto) 0.01 0-0.5 K/uL Basophils # (Auto) 0.01 0-0.2 K/uL RDW Standard Deviation 46.7 36.4-46.3 fL RDW Coefficient of Variation 13.7 11.5-14.5 % Immature Granulocyte % (Auto) 0.1 % Immature Granulocyte # (Auto) 0.01 0.00-0.02 K/uL Prothrombin Time 10.0 9.0-12.0 SECONDS Prothromb Time International Ratio 1.0 0.9-1.1 Activated Partial Thromboplast Time 22.9 21.0-31.0 SECONDS Partial Thromboplastin Ratio 0.9 Sodium Level 133 136-145 mmol/L Potassium Level 4.0 3.5-5.1 mmol/L Chloride Level 99 98-107 mmol/L Carbon Dioxide Level 22 21-32 mmol/L Anion Gap 12.0 20.0 16-25 mmol/L Blood Urea Nitrogen 13 7-18 mg/dl Creatinine 1.55 0.60-1.40 mg/dl Est Creatinine Clear Calc Drug Dose 43.8 ml/min Estimated GFR () 52.9 Estimated GFR (Non- 45.6 BUN/Creatinine Ratio 8.5 10-20 Random Glucose 138 70-99 mg/dl Estimated Average Glucose 114 mg/dl Hemoglobin A1c 5.6 4.5-5.6 % Calcium Level 10.0 8.5-10.1 mg/dl Magnesium Level 2.0 1.8-2.4 mg/dl Total Creatine Kinase 91 39-308 U/L Creatine Kinase MB 1.2 0.5-3.6 ng/ml Creatine Kinase MB Ratio 1.3 0-3.0 Troponin I < 0.015 0-0.045 ng/ml Bedside Glucose 122 70-99 mg/dl Bedside Hemoglobin 17.0 14.0-18.0 g/dl Bedside Hematocrit 50 42-52 % Bedside Sodium 135 135-144 mEq/L Bedside Potassium 4.0 3.3-5.0 mEq/L Bedside Chloride 100 101-112 mEq/L Bedside Total CO2 20 24-31 mEq/l Bedside Blood Urea Nitrogen 13 7-18 mg/dl Bedside Creatinine 1.4 0.6-1.3 mg/dl Bedside Glucose (other) 139 70-99 mg/dl Bedside Ionized Calcium (Deangelo) 1.13 1.12-1.32 mmol/l Microbiology Results 10/09/17 MRSA DNA Surveillance Screen, Received Pending Diagnostic Radiology Extensive imaging reveals: unremarkable CT of head unremarkable CXR other than mild lung hyperexpansion noted unremarkable CT angiogram of head (no hemmorhage, mass effect, acute ischemia) Neck CTA shows 50% focal stenosis at origin of right internal carotid artery and 40% focal stenosis of proximal left internal carotid artery, and 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 CXR normal Normal EKG Impression Assessment and Plan Transient Ischemic Attack vs Resolving Stroke -Resolving stroke more likely based on time when symptoms began to improve -Patient was given alteplase in the ED -Monitor in ICU for bleeding risk - Keep blood pressure below 185/110 during inpatient stay -Wait 24-48 hours then initiate aspirin 81 mg. -Obtain fasting lipid profile and HbA1c -Based on results of lipid profile begin moderate to high dose statin -Clinical decision making defining etiology and rule outs: -Ischemia due to atherosclerosis (small vessel vascular disease) ) vs. Cardiogenic emboli (clot emboli, septic emboli, etc.) vs. peripheral emboli ( carotid) -Obtain Echocardiogram -24 hr. cardiac monitoring -Risk factor medication -Discussed with patient that modifiable risk factors include exercise, diet, and smoking 6mm right middle Lobe pulmonary nodule -Follow per Fleischner criteria, based on radiologic findings this appears to be a CT scan at 6-12 months -of note is patient's smoking history Chest pain and possible angina -Patient complained of chest pain at the time of his initial stroke symptoms -Described angina symptoms of heavy pressure like someone standing on chest, shortness of breath, diaphoresis -Obtain cardiac stress test in outpatient setting Level of Care Critical Care
--- NOTE | 2017-10-09 16:50 | ECHOCARDIOGRAM REPORT ---
*NOTICE TO RECEIVING [employer] This information is strictly Confidential and protected under [place] law. [place] law prohibits you from making any further disclosure of this information unless further disclosure is expressly permitted by the written consent of the person to whom it pertains or is authorized by law. A general authorization for the release of medical or other information is not sufficient for this purpose. Hospital accepts no responsibility if the information is made available to any other person, INCLUDING THE PATIENT. Interpretation Summary * Name: KIMMY FERRELL Study Date: 10/09/2017 02:40 PM BP: 163/88 mmHg * Patient Location: .[facility]\S\E108\S\1 HR: 79 * : 1950 (M/d/yyyy) Gender: Male Height: 70 in * Age: 67 yrs Ethnicity: [place] Weight: 147 lb * Ordering Physician: George Farmer * Referring Physician: Self, Referred * Performed By: Yari Spangler RCS * * Reason For Study: Stroke * BSA: 1.8 m2 * -- Conclusions -- * 1. Normal left ventricular size and systolic function. EF 60-65%. No regional wall motion abnormalities. No left ventricular hypertrophy. Type I diastolic dysfunction. * 2. No visualized right to left interatrial shunt following agitated saline injection. * 3. No significant valvular abnormalities visualized. * 4. Normal estimated right ventricular systolic pressure. * 5. No prior study available for comparison. Procedure Details * A complete two-dimensional transthoracic echocardiogram was performed (2D, M-mode, Doppler and color flow Doppler). * A saline contrast injection was performed to assess for cardiac shunting. * The injection was performed through an intravenous line in the right arm. * A total of 30 cc of agitated saline was given. * The attending nurse who injected the saline contrast was Edilia Granados RN. Left Ventricle * Normal left ventricular size and systolic function. EF 60-65%. No regional wall motion abnormalities. No left ventricular hypertrophy. Type I diastolic dysfunction. Right Ventricle * The right ventricle is normal in size and function. * The right ventricular systolic function is normal as assessed by tricuspid annular plane systolic excursion (TAPSE) (normal >1.5 cm). Atria * The left atrial size is normal. * Right atrial size is normal. * There is no evidence of atrial septal defect, but resolution does not allow assessment for a patent foramen ovale. * No visualized right to left interatrial shunt following agitated saline injection. Mitral Valve * The mitral valve is grossly normal. * There is no mitral valve stenosis. * There is trace mitral regurgitation. Tricuspid Valve * The tricuspid valve is not well visualized, but is grossly normal. * There is no tricuspid stenosis. * There is trace tricuspid regurgitation. Aortic Valve * The aortic valve is trileaflet. * No hemodynamically significant valvular aortic stenosis. * No aortic regurgitation is present. Pulmonic Valve * The pulmonary valve is inadequately visualized, but the Doppler data is adequate for interpretation. * There is no pulmonic valvular stenosis. * There is no significant pulmonary regurgitation. Great Vessels * The aortic root is normal size. * Aortic arch of normal dimension. Pericardium/Pleural * There is no pericardial effusion. Great Vessels * Normal inferior vena cava size and collapsability with sniff indicates a normal right atrial pressure of 3 mmHg MMode 2D Measurements and Calculations IVSd 0.97 cm IVSs 1.2 cm LVIDd 4.1 cm LVIDs 2.6 cm LVPWd 0.88 cm LVPWs 1.2 cm IVS/LVPW 1.1 FS 36.9 % EDV(Teich) 74.4 ml ESV(Teich) 24.4 ml EF(Teich) 67.2 % EDV(cubed) 69.1 ml ESV(cubed) 17.4 ml EF(cubed) 74.9 % % IVS thick 20.2 % % LVPW thick 37.7 % LV mass(C)d 118.7 grams LV mass(C)dI 64.8 grams/m\S\2 LV mass(C)s 88.2 grams LV mass(C)sI 48.1 grams/m\S\2 SV(Teich) 50.0 ml SI(Teich) 27.3 ml/m\S\2 SV(cubed) 51.7 ml SI(cubed) 28.2 ml/m\S\2 Ao root diam 3.2 cm Ao root area 8.2 cm\S\2 ACS 1.4 cm LA dimension 2.9 cm LA/Ao 0.90 EDV(MOD-sp4) 115.0 ml ESV(MOD-sp4) 50.0 ml EF(MOD-sp4) 56.5 % EDV(MOD-sp2) 111.0 ml ESV(MOD-sp2) 43.0 ml EF(MOD-sp2) 61.3 % SV(MOD-sp4) 65.0 ml SI(MOD-sp4) 35.5 ml/m\S\2 SV(MOD-sp2) 68.0 ml SI(MOD-sp2) 37.1 ml/m\S\2 Doppler Measurements and Calculations MV E max caio 57.9 cm/sec MV A max caio 72.5 cm/sec MV E/A 0.80 MV P1/2t max caio 64.5 cm/sec MV P1/2t 68.6 msec MVA(P1/2t) 3.2 cm\S\2 MV dec slope 275.6 cm/sec\S\2 MV dec time 0.22 sec Ao V2 max 133.7 cm/sec Ao max PG 7.2 mmHg Ao max PG (full) 1.6 mmHg LV V1 max PG 5.5 mmHg LV V1 max 117.3 cm/sec PA V2 max 87.1 cm/sec PA max PG 3.1 mmHg TR max caio 235.8 cm/sec RVSP(TR) 25.3 mmHg RAP systole 3.0 mmHg
[2017-10-09] MEDS ORDERED: ATORVASTATIN 40 MG TAB PO ONE (18:47)
--- NOTE | 2017-10-09 18:49 | History and Physical ---
History & Physical Date of Service Oct 09, 2017. History & Physical admit #[id number]
--- NOTE | 2017-10-09 19:13 | HISTORY & PHYSICAL EXAMINATION ---
DATE OF ADMISSION: 10/09/2017 ADMISSION HISTORY AND PHYSICAL CHIEF COMPLAINT: Left-sided weakness. HISTORY OF PRESENT ILLNESS: The patient is a very pleasant 67-year-old male who came to the Emergency Room earlier today. 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 The chest pain and pressure itself went away very quickly as well he had a hard time quantifying how long he felt that, but then numbness and weakness and blurred vision persisted until he was initiated on thrombolytics in the ER. Now, he actually feels fine other than subjectively a little bit of blurred vision in his left eye. He was seen in the ER, evaluated for suspected stroke, thrombolytics were given and almost immediately thereafter his symptoms resolved. REVIEW OF SYSTEMS: Essentially negative at this point in time for anything other than a degree of vision blurring. Prior to today's episode, he had no symptoms of anything, no chest pain, no shortness of breath, no dyspnea on exertion, no numbness, no weakness. Review of systems was entirely negative prior to today. Earlier today, also pertinent positives on review of systems was a degree of sweating and diaphoresis, during the time of his events. PAST MEDICAL HISTORY: None, although he admittedly does not see a doctor very often. He probably has not seen his doctor somewhere in a 5- to 10-year range. MEDICATIONS: Tylenol p.r.n. pain. PAST SURGICAL HISTORY: None. FAMILY HISTORY: Diabetes in his grandmother, heart disease. His dad had a heart attack. Hypertension in his mom and a grandparent and he believes his mom of a ruptured aortic aneurysm. 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 He does smoke a couple cigarettes a day and pretty much constantly has a chew in his mouth. He drinks 3 beers a day. and lives with his . ALLERGIES: LISTED PENICILLIN. PHYSICAL EXAMINATION: VITAL SIGNS: Temp 36.5, pulse 79, respiratory rate 22, blood pressure 182/90, 99% on room air. GENERAL: He is awake, alert, oriented x3, pleasant, in no acute distress. HEENT: Normocephalic, atraumatic. Mucous membranes are moist. CARDIOVASCULAR: Regular without rubs, murmurs, or gallops. LUNGS: Clear to auscultation bilaterally. No rales, rhonchi, or wheezes with good effort. ABDOMEN: Soft, nondistended, nontender, no masses or organomegaly. EXTREMITIES: Without cyanosis, clubbing or edema. No calf tenderness. SKIN: Shows no rashes, no pallor or icterus. NEUROLOGIC: Shows cranial nerves II-XII to be grossly intact. Gross motor and sensory are intact with 5/5 equal strength bilaterally and absolutely no sensory deficits to confrontational light touch. His vision appears to be normal and his visual heller essentially symmetric, maybe slightly wide peripheral vision in the right eye, but essentially nothing that seems truly abnormal despite his subjective sensation of blurred vision in the left eye. MUSCULOSKELETAL: Yields no gross lesions. SKIN: Shows no rashes, no pallor or icterus. MENTAL STATUS: Shows good recent and remote recall. Normal mood and affect. Good judgment and insight. LABS AND DIAGNOSTICS: CBC shows a white count of 7.16, hemoglobin 15.2, and platelets 203. Complete metabolic panel with sodium 133, potassium 4, chloride 99, CO2 22, BUN 13, creatinine 1.55, calcium 10, glucose 138, mag 2.0. CK total of 91 with an MB of 1.2, troponin of less than 0.015. PT is 10, PTT 22.9. Urinalysis - yellow, clear, specific gravity 1.029, small amount of leukocyte esterase, 20-30 epithelials and trace ketones. Urine drug screen is negative. Head CT showed no acute intracranial findings. CT angiography of the brain showed no hemorrhage, mass effect or evidence of ischemia. 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 CT angio of the chest showed mild emphysema, no airspace consolidation, indeterminate 6 mm right middle lobe pulmonary nodule, degree of emphysematous change and biapical scarring, minimal dependent atelectasis, coronary calcifications, no pulmonary emboli with limitations of the study that was not designed to check for that, mild atherosclerotic calcification of thoracic aorta, no dissection and thyroid was normal. Chest x-ray showed no acute process, lungs mildly hyperexpanded. EKG was sinus with some fairly large T waves and QRS in the anterior leads, but no ischemic changes. ASSESSMENT AND PLAN: 1. Stroke. He is now status post tissue plasminogen activator and essentially entirely improved. His only subjective symptom lasted some left vision blurring, which is not even fortunately objectively able to be corroborated. His hemiparesis seems to have essentially totally resolved. Will assess risks, obvious risks are male, age, tobacco abuse. We will be following his blood pressure as he is possibly hypertensive. Check a lipid panel. Check an A1c. Obviously, his carotid arteries could be culprit and will await neurology input on this but likely he will warrant vascular surgery evaluation in the near future given that he has got a 50% lesion on what would be the same side as his stroke. We will check echocardiogram and cardiac monitoring as well. Once the appropriate time has past after thrombolytics, will start an aspirin, start him on Lipitor today 40 mg and then titrate the dose based on his lipid panel, if an increase is required and for now, allow for permissive hypertension but as time passes follow his blood pressure to see if that needs to be managed more aggressively. 2. Chest pain. Certainly, this actually seems to be separate from his stroke, although it happened simultaneously certainly the same risks carry through putting him at risk for myocardial infarction as well as for stroke. His echocardiogram is nonacute, his troponin is negative and he is asymptomatic. We will check an echocardiogram and then discuss with him in the near future, certainly stress echocardiogram appears to be warranted. Currently, the same medication management for his stroke. We will be treating any coronary artery disease if that is there, pending further workup from stress test. 3. Pulmonary nodule, outpatient followup. 4. Tobacco abuse. Counseled on cessation and we will continue to discuss. 5. Questionable emphysema. Outpatient followup. 6. Deep venous thrombosis prophylaxis. Currently, he has just been given thrombolytics, will initiate pharmacologic deep venous thrombosis prophylaxis once appropriate if he is still in the hospital. BRANT
--- NOTE | 2017-10-09 20:04 | Critical Care Consultation ---
Critical Care Consultation Date of Consultation: Oct 09, 2017. Attending Physician: George Farmer D.O. Reason for Consultation: 67-year-old male status post TPA and menstruation for presumed ischemic infarct resulting in LEFT-sided weakness, LEFT eye blurry vision, and confusion. Need for close hemodynamic/cardiovascular/neurologic monitoring. History of Present Illness Patient is a 67-year-old male admitted to the ICU status post administration of TPA in the setting of presumed ischemic stroke. Patient presented with an acute LEFT-sided hemiparesis and confusion. CT of the head was found to be unremarkable. CTA of the chest and neck were unremarkable. EKG demonstrated no acute findings. Cardiac enzymes are negative. The patient is not anemic. There are no significant electrolyte derangement's. Prior to arrival in the ICU , the patient's symptoms have nearly completely resolved. Upon arrival to the ICU, the patient reports that between approximately 9:30 and 10 AM, while working, the patient states that he felt his heart racing and was having difficulty catching his breath. He described a heaviness to the central portion of his chest as well. He has not experienced this pain previously. Shortly after this, the patient reached to grab a heavy garbage bag and realized he could not use his LEFT upper extremity. Eventually, he was able to grab the garbage bag, but was unable to use his LEFT lower extremity. At this point, he sat down and was talking with a colleague. He reports that he developed LEFT eye blurry vision and subsequent brought to the emergency department. He does report feeling very confused during this episode as well. At this point, the patient reports that he feels 100% better. He denies any current headaches, dizziness, lightheadedness, chest pain, palpitations, short of breath, dizziness, lightheadedness, nausea, vomiting, extremity weakness, or extremity pain. Patient is a daily smoker. He chews tobacco throughout the day. He drinks 2-3 beers socially per day. He denies any other illicit substance use. He lives at home with his . Past Medical/Surgical History Medical Problems: (1) Prostate infection (2) Stroke Family History Diabetes mellitus Heart disease Hypertension Reviewed as above Social History Smoking Status: Current Every Day Smoker Smokeless Tobacco Use: Yes Alcohol Use: socially Drug Use: none Marital Status: Housing Status: lives with family Occupation Status: retired Allergies Coded Allergies: Penicillins (Verified Allergy, Unknown, 10/09/17) Home Medications Scheduled Acetaminophen (Tylenol Arthritis Ext Rel), 325 MG PO UD Current Inpatient Medications Current Inpatient Medications Medications (Trade) Dose Ordered Sig/Latasha Route Start Time Stop Time Status Last Admin Dose Admin Atorvastatin Calcium (Lipitor Tab) 40 mg QAM PO 10/10/17 09:00 11/09/17 08:59 Miscellaneous Information (Pharmacist Discharge Med Rec Consult) 1 ea UD PRN N/A 10/09/17 13:15 11/08/17 13:14 Acetaminophen (Tylenol Tab) 650 mg Q4H PRN PO 10/09/17 13:15 11/08/17 13:14 Al Hydrox/Mg Hydrox/Simethicone (Maalox Max Susp) 15 ml Q4H PRN PO 10/09/17 13:15 11/08/17 13:14 Magnesium Hydroxide (Milk Of Magnesia Susp) 30 ml Q12H PRN PO 10/09/17 13:15 11/08/17 13:14 Ondansetron HCl (Zofran Inj) 4 mg Q6H PRN IV 10/09/17 13:15 11/08/17 13:14 Review of Systems A complete 10-point Review of Systems was discussed with the patient, with pertinent positives and negatives listed in the History of Present Illness. All remaining Review of Systems questions can be considered negative unless otherwise specified. Physical Exam Date Time Temp Pulse Resp B/P (MAP) Pulse Ox O2 Delivery O2 Flow Rate FiO2 10/09/17 19:28 63 20 122/69 (86) 95 Room Air 10/09/17 19:00 67 18 117/58 (77) 96 Room Air 10/09/17 18:30 70 18 119/65 (83) 94 Room Air 10/09/17 18:00 72 18 120/61 (80) 96 Room Air 10/09/17 17:30 78 18 140/83 (102) 96 Room Air 10/09/17 17:00 89 18 148/94 (112) 96 Room Air 10/09/17 16:30 69 18 137/70 (92) 97 Room Air 10/09/17 16:00 97 Room Air 10/09/17 16:00 70 20 124/72 (89) 97 Room Air 10/09/17 16:00 73 16 141/83 (98) 97 10/09/17 15:58 70 18 124/72 (89) 97 Room Air 10/09/17 15:30 74 14 96 10/09/17 15:28 68 17 98 10/09/17 15:00 66 18 103/71 (83) 99 10/09/17 14:58 73 18 131/69 (89) 97 Room Air 10/09/17 14:54 36.9 98 18 127/76 99 Room Air 10/09/17 14:30 36.9 98 18 127/76 (93) 99 Room Air 10/09/17 14:00 79 149/82 10/09/17 13:44 80 153/90 10/09/17 13:30 74 153/87 10/09/17 13:18 79 163/88 10/09/17 13:01 82 18 168/98 10/09/17 12:44 84 151/92 10/09/17 12:30 84 18 149/81 10/09/17 12:15 87 18 156/94 10/09/17 12:05 90 18 175/99 10/09/17 11:55 90 18 180/111 10/09/17 11:42 80 20 150/88 100 Room Air 10/09/17 11:40 83 10/09/17 11:26 36.5 79 22 182/90 99 Room Air VITAL SIGNS - Vital signs and nursing notes were reviewed. GENERAL - 67-year-old male appearing his stated age who is in no acute distress. Communicates well with provider and answers questions appropriately. HEAD - Normocephalic, Atraumatic. EYES - PERRL with EOMI bilaterally. Sclera anicteric. Palpebral conjunctiva pink and moist with no injection noted. EARS - No deformities of external structures noted on gross examination bilaterally. NOSE - Midline and without cyanosis. No epistaxis or purulent drainage noted. MOUTH/OROPHARYNX - Without perioral cyanosis. Buccal mucosa pink and moist and without leukoplakia. Tongue midline with equal elevation of palate bilaterally. NECK - Neck with FROM. Supple to palpation. No nuchal rigidity. LUNGS - Chest wall symmetric without accessory muscle use, intercostals retractions, or central cyanosis. Normal vesicular breath sounds CTA B/L. No wheezes, rales, or rhonchi appreciated. CARDIAC - RRR with S1/S2. No murmur, rubs, or gallops appreciated. ABDOMEN - Abdominal contour flat and without pulsations or visible masses. BS normoactive all four quadrants. No tenderness, palpable masses, hepatosplenomegaly, or ascites noted. EXTREMITIES - No pretibial edema present. +3/5 radial and dorsalis pedis pulses palpated throughout. FROM throughout. +5/5 strength noted in UE/LE bilaterally. NEUROLOGIC - Cranial nerves II through XII grossly intact. Sensory intact to light touch throughout. Patellar reflexes +2/4. Patient able to perform rapid alternating movements appropriately. Negative Drift. PSYCH - A&Ox3 and cooperates fully with examiner. Pt is very pleasant and interacts well with examiner. Laboratory Results Last 24 Hours Test 10/09/17 00:00 10/09/17 10:44 10/09/17 11:19 10/09/17 11:26 Urine Color YELLOW Urine Appearance CLEAR Urine pH 8.5 Urine Specific [place] 1.029 Urine Protein NEG Urine Glucose (UA) NEG Urine Ketones TRACE Urine Occult Blood NEG Urine Nitrite NEG Urine Bilirubin NEG Urine Urobilinogen NEG Urine Leukocyte Esterase SMALL Urine WBC (Auto) 1-5 /hpf Urine RBC (Auto) 0-4 /hpf Urine Hyaline Casts (Auto) 1-5 /lpf Urine Epithelial Cells (Auto) 20-30 /lpf Urine Bacteria (Auto) NEG Urine Opiates Screen NEG Urine Methadone, Qualitative NEG Urine Barbiturates NEG Urine Phencyclidine (PCP) Level NEG Ur Amphetamine/Methamphetamine NEG MDMA (Ecstasy) Screen NEG Urine Benzodiazepines Screen NEG Urine Cocaine Metabolite NEG Urine Marijuana (THC) NEG White Blood Count 7.16 K/uL Red Blood Count 4.72 M/uL Hemoglobin 15.2 g/dL Hematocrit 43.8 % Mean Corpuscular Volume 92.8 fL Mean Corpuscular Hemoglobin 32.2 pg Mean Corpuscular Hemoglobin Concent 34.7 g/dl Platelet Count 203 K/uL Mean Platelet Volume 9.9 fL Neutrophils (%) (Auto) 81.8 % Lymphocytes (%) (Auto) 13.8 % Monocytes (%) (Auto) 4.1 % Eosinophils (%) (Auto) 0.1 % Basophils (%) (Auto) 0.1 % Neutrophils # (Auto) 5.85 K/uL Lymphocytes # (Auto) 0.99 K/uL Monocytes # (Auto) 0.29 K/uL Eosinophils # (Auto) 0.01 K/uL Basophils # (Auto) 0.01 K/uL RDW Standard Deviation 46.7 fL RDW Coefficient of Variation 13.7 % Immature Granulocyte % (Auto) 0.1 % Immature Granulocyte # (Auto) 0.01 K/uL Prothrombin Time 10.0 SECONDS Prothromb Time International Ratio 1.0 Activated Partial Thromboplast Time 22.9 SECONDS Partial Thromboplastin Ratio 0.9 Sodium Level 133 mmol/L Potassium Level 4.0 mmol/L Chloride Level 99 mmol/L Carbon Dioxide Level 22 mmol/L Anion Gap 12.0 mmol/L 20.0 mmol/L Blood Urea Nitrogen 13 mg/dl Creatinine 1.55 mg/dl Est Creatinine Clear Calc Drug Dose 43.8 ml/min Estimated GFR () 52.9 Estimated GFR (Non- 45.6 BUN/Creatinine Ratio 8.5 Random Glucose 138 mg/dl Estimated Average Glucose 114 mg/dl Hemoglobin A1c 5.6 % Calcium Level 10.0 mg/dl Magnesium Level 2.0 mg/dl Total Creatine Kinase 91 U/L Creatine Kinase MB 1.2 ng/ml Creatine Kinase MB Ratio 1.3 Troponin I < 0.015 ng/ml Bedside Glucose 122 mg/dl Bedside Hemoglobin 17.0 g/dl Bedside Hematocrit 50 % Bedside Sodium 135 mEq/L Bedside Potassium 4.0 mEq/L Bedside Chloride 100 mEq/L Bedside Total CO2 20 mEq/l Bedside Blood Urea Nitrogen 13 mg/dl Bedside Creatinine 1.4 mg/dl Bedside Glucose (other) 139 mg/dl Bedside Ionized Calcium ([place]) 1.13 mmol/l Diagnostic Results Radiological imaging and reports were reviewed by myself. Radiologist's Interpretation as follows: CT HEAD WITHOUT CONTRAST (CT) CLINICAL HISTORY: Stroke COMPARISON STUDY: No previous studies for comparison. TECHNIQUE: Axial CT of the brain is performed from the vertex to the skull base. IV contrast was not administered for this examination. A dose lowering technique was utilized adhering to the principles of ALARA. CT DOSE: FINDINGS: No intra or extra-axial mass lesions are visualized. There is no CT evidence of acute cortical infarction. There is no evidence of midline shift. There is no acute hemorrhage. No calvarial fractures are visualized. There are minimal white matter hypodensities likely on a small vessel basis. There is no evidence of pathologic ventricular dilatation. There is no evidence of acute sinusitis IMPRESSION: No acute intracranial findings CHEST ONE VIEW PORTABLE HISTORY: Stroke COMPARISON: Chest 07/18/2010. FINDINGS: No pleural effusions. No pneumothorax. The heart is normal in size. The lungs are clear. The lungs are mildly hyperexpanded. IMPRESSION: No acute process. CT ANGIOGRAM OF THE CHEST COMBO CLINICAL HISTORY: Atypical chest pain. COMPARISON STUDY: Chest x-ray dated 10/09/2017. TECHNIQUE: Before and following the IV administration of 119 cc of Optiray 320, CT angiogram of the chest was performed from the thoracic inlet to the upper abdomen utilizing the dissection protocol. Images are reviewed in the axial, sagittal, and coronal planes. 3-D MIPS images are created and assessed. IV contrast was administered without complication. A dose lowering technique was utilized adhering to the principles of ALARA. The examination is degraded by streak artifact from the patient's arms which could not be elevated above the chest. FINDINGS: Thyroid: Imaged portions of the thyroid gland are normal in size and attenuation. Thoracic aorta: No intramural hematoma is seen on the unenhanced series. There is mild atherosclerotic calcification of the thoracic aorta, which is normal in caliber and demonstrates standard 3-vessel arch anatomy. No dissection is seen. The arch vessels are widely patent. Pulmonary vasculature: The pulmonary trunk is normal in caliber. There are no central filling defects identified in the pulmonary vessels to suggest pulmonary embolus. Note that this examination was not specifically protocoled to assess for pulmonary emboli. Heart: The heart is normal in size and without pericardial effusion. There are coronary artery calcifications. Lungs and pleural spaces: Evaluation of the lung parenchyma is modestly degraded by motion artifact. Mild emphysematous change is noted. Biapical scarring is observed. There is minimal dependent atelectasis. No airspace consolidation or pleural effusion is seen. The trachea and central airways are clear. A 6 mm right middle lobe pulmonary nodule is seen on image #177 of the unenhanced series. A small fat-containing Bochdalek hernia is seen at the right lung base. Mediastinum: There is no mediastinal lymphadenopathy. Merlene: Clear. Axillae: There is no axillary lymphadenopathy. Upper abdomen: Partially visualized upper abdominal viscera is within normal limits. Skeletal structures: No lytic or blastic bony lesions are seen. Fusion hardware is seen in the lower cervical region. IMPRESSION: 1. Unremarkable CT angiogram of the thoracic aorta. 2. Mild emphysema. 3. No airspace consolidation or pleural effusion is identified. 4. There is an indeterminant 6 mm right middle lobe pulmonary nodule. This can be followed as per the Fleischner criteria. See below. 5. Additional findings as above. CT ANGIOGRAM OF THE BRAIN CLINICAL HISTORY: Left-sided weakness. COMPARISON STUDY: Unenhanced CT of the brain dated 10/09/2017. TECHNIQUE: Following the IV administration of 119 cc of Optiray 320, CT angiogram of the brain was performed from the skull base to the vertex. Images are reviewed in the axial, sagittal, and coronal planes. 3-D MIPS images are created and assessed. IV contrast was administered without complication. A dose lowering technique was utilized adhering to the principles of ALARA. FINDINGS: Brain parenchyma: There are age-related involutional changes noting mild subcortical and periventricular microangiopathic disease. There is no hemorrhage, mass effect, or evidence of acute territorial ischemia by CT criteria. There is no evidence of enhancing mass lesion on the angiogram phase images. No extra-axial fluid collection is seen. Flores-white matter differentiation is preserved. Ventricles, sulci, and cisterns: Prominent secondary to involutional change. CT angiogram of the brain: There are tiny posterior communicating arteries. The internal carotid arteries are widely patent, as are the anterior and middle cerebral arteries. The vertebrobasilar system and posterior cerebral arteries are widely patent. The vertebral arteries are codominant. There is no aneurysm, high-grade stenosis, or focal vessel cutoff identified throughout the intracranial circulation. Dural sinuses: Clear as visualized. Orbits: The bony orbits are intact. The orbital contents are normal as visualized. Sinuses and mastoids: The visualized paranasal sinuses are clear. The mastoid air cells are well pneumatized. Calvarium: Unremarkable. IMPRESSION: 1. There is no hemorrhage, mass effect, or evidence of acute territorial ischemia by CT criteria. 2. Unremarkable CT angiogram of the brain. NECK CTA HISTORY: Left-sided weakness. TECHNIQUE: Multiaxial CT images of the neck were performed following the intravenous administration of contrast to evaluate the major cervical vessels. Maximum intensity projection images were also obtained. All measurements were calculated based on NASCET criteria. A dose lowering technique was utilized adhering to the principles of ALARA. COMPARISON STUDY: None. FINDINGS: The aortic arch and proximal great vessels are widely patent. No central venous stenosis or occlusion within the bilateral common carotid or bilobed vertebral arteries. Mild focal dilatation within the distal left vertebral artery at the C2 level which measures up to 5 mm in diameter. This suggests a small fusiform aneurysm. Moderate amount of calcified and noncalcified plaque within the right carotid bulb a large amount of calcified plaque within the left carotid bulb. There is approximately 50% focal stenosis at the origin of the right internal carotid artery due to the atherosclerotic plaque. There is approximately 40% stenosis at the proximal 1.5 cm of the left internal carotid artery due to the calcified plaque. The mid to distal bilateral internal carotid arteries are widely patent. Anterior cervical discectomy and fusion from C5 through C7. IMPRESSION: 1. Approximately 50% focal stenosis at the origin of the right internal carotid artery and approximately 40% stenosis involving the proximal left internal carotid artery as described above. 2. 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 Assessment & Plan (1) Palpitations (2) CVA (cerebral vascular accident) (3) Received intravenous tissue plasminogen activator (t-PA) in emergency department (4) Stroke Reason Critically Ill: 67-year-old male status post TPA and menstruation for presumed ischemic infarct resulting in LEFT-sided weakness, LEFT eye blurry vision, and confusion. Need for close hemodynamic/cardiovascular/neurologic monitoring. Neuro - * CAM ICU: NEGATIVE * Acute CVA w/ transient LEFT-sided Hemiparesis, LEFT Eye Blurry Vision, and Confusion: * Received TPA in the ED. * Complete resolve of symptoms at this point. * CT/CTA of head negative. * Protocols for TPA in place. * Neuro checks. * Appreciate Neurology consultation. * Daily EtOH use (3-4 beers): * Will avoid CIWA protocol in the acute phase s/p CVA w/ confusion s/s. Cardiac - * Palpitations/Chest Pain prior to CVA s/s: * Will monitor on telemetry for any dysrhythmias (specifically A-fib) - question if pt may have experienced a-fib during his described palpitations resulting in subsequent VTE event. Also, w/ carotid stenosis - ??acute drop in BP during palpitation event resulting in poor perfusion - CVA s/s. * EKG - NSR 77bpm w/ QTc 436ms. * ECHO: * * -- Conclusions -- * 1. Normal left ventricular size and systolic function. EF 60-65%. No regional wall motion abnormalities. No left ventricular hypertrophy. Type I diastolic dysfunction. * 2. No visualized right to left interatrial shunt following agitated saline injection. * 3. No significant valvular abnormalities visualized. * 4. Normal estimated right ventricular systolic pressure. * 5. No prior study available for comparison. Respiratory - * Long standing h/o smoking. * Presumed undiagnosed lung disease. * Smoking cessation. * Supplemental O2 PRN. GI - * Maalox PRN. * AHA diet. RENAL/LYTES - * RAINA w/ Cr of 1.55 * Gentle IVF w/ NSS@50mL/hr * Monitor electrolytes - replace appropriately. - * No Subramanian Catheter. ENDO - * No h/o DM or Thyroid Disease. * BSGs per protocol - ISS/gtt PRN HEME - * Stable H&H. * Monitor for bleeding s/p TPA administration. ID - * No concerns for infection at this point. * Monitor fever curve. LINES/IV ACCESS - * PIVs intact. DVT PROPHYLAXIS - * Avoid chemoprophylaxis immediately s/p TPA administration. * Await Neurology recommendations for continued Rx. * SCDs. I have personally spent 35 minutes of critical care time in the direct management of this patient. This is a life/limb threatening event. This includes time spent evaluating patient, direct bedside care, chart review, placing orders, interpretation of diagnostic studies, discussion with consultants, patient, and family members, as well as other required patient management activities. This time is exclusive of all separately billable procedures, and teaching time and separate from and in addition to any other critical care service time. Thank you for this consultation allow us to be part of this patient's care. Please refer to my attending physician's documentation for any further recommendations. Resident Physician Supervision Note: I discussed the case with Sandro Booker PA-C and I performed an independent evaluation and agree with the findings and plan as documented in the note. Any exceptions or clarifications are listed here: 67 year-old male, life-long smoker, admitted acute CVA with left sided hemiparesis, s/p tPA. Deficits improved significantly, nearly resolved. Motor strength has returned to normal, no drift. Complaint of slight visual deficit in the left eye Plan: Monitor Neuro-checks in the ICU Repeat CT 24 hours post t-PA. If negative for bleeding, start ASA 81 mg and chemical DVT prophylaxis Monitor for a-fib, had palpitations prior to CVA. May need a loop recorder or Holter monitor as outpatient. Check carotid US, 2DEcho Started on Lipitor Avoid hypotension DVT prophylaxis: SCDs Documented By: Ze Boyce MD
[2017-10-10] VITALS (17 sets, daily range): BP systolic 105–146; BP diastolic 61–83; PULSE 54–90; TEMP 36.5–36.7; O2SAT 91–99
[2017-10-10 05:43] LABS: BASO % 0.2 %; BASO ABS # 0.01 K/uL (0-0.2); EOS % 1.4 %; EOS ABS # 0.08 K/uL (0-0.5); HEMATOCRIT 43.2 % (42-52); HEMOGLOBIN 14.8 g/dL (14.0-18.0); IG# 0.01 K/uL (0.00-0.02); LYMPH % 24.9 %; LYMPH ABS # 1.41 K/uL (1.2-3.4); MEAN CELL VOLUME 93.9 fL (80-100); MEAN CORPUSCULAR HEMOGLOBIN 32.2 pg (25-34); MEAN CORPUSCULAR HGB CONC 34.3 g/dl (32-36); MEAN PLATELET VOLUME 9.3 fL (7.4-10.4); MONO % 11.8 %; MONO ABS # 0.67 K/uL (0.11-0.59); NEUT % 61.5 %; NEUT ABS # 3.48 K/uL (1.4-6.5); PLATELET COUNT 180 K/uL (130-400); RED CELL DISTRIBUTION WIDTH SD 48.5 fL (36.4-46.3); WHITE BLOOD COUNT 5.66 K/uL (4.8-10.8)
[2017-10-10 06:32] LABS: BLOOD UREA NITROGEN 17 mg/dl (7-18); CALCIUM 8.8 mg/dl (8.5-10.1); CARBON DIOXIDE 29 mmol/L (21-32); CHOLESTEROL 201 mg/dl (0-200); CREATININE 0.84 mg/dl (0.60-1.40); GLUCOSE 90 mg/dl (70-99); LDL CHOLESTEROL CALCULATED 117 mg/dl; PHOSPHORUS 3.1 mg/dl (2.5-4.9); POTASSIUM 3.8 mmol/L (3.5-5.1); SODIUM 137 mmol/L (136-145)
[2017-10-10] MEDS: ATORVASTATIN 40 MG TAB PO SCH (07:49)
--- NOTE | 2017-10-10 08:33 | Medical Student: [facility] ---
Med Student Progress Note Date of Service Oct 10, 2017. Subjective Pt evaluation today including: conversation w/ patient Pain: None PO Intake: Yes Voiding: no voiding problems The patient states that he feels normal and 100% better today. He slept well overnight and was comfortably watching television after breakfast this morning. The patient had a headache last evening, which he told me went away after breakfast this morning. At the moment he denies headache, dizziness, chest pain , palpations, shortness of breath, nausea, vomiting, weakness, and pain. The patients vitals have normalized. Review of Systems Notes: he denies headache, dizziness, chest pain, palpations, shortness of breath, nausea, vomiting, weakness, and pain Objective Vital Signs Date Time Temp Pulse Resp B/P (MAP) Pulse Ox O2 Delivery O2 Flow Rate FiO2 10/10/17 08:00 63 18 137/68 (91) 97 Room Air 10/10/17 08:00 70 18 137/68 (91) 95 Room Air 10/10/17 08:00 Room Air 10/10/17 07:00 54 14 118/76 (90) 97 Room Air 10/10/17 07:00 54 14 118/76 (90) 97 Room Air 10/10/17 06:00 54 12 121/79 (93) 97 Room Air 10/10/17 05:00 61 19 130/83 (99) 95 Room Air 10/10/17 04:00 36.6 10/10/17 04:00 Room Air 10/10/17 04:00 55 19 131/77 (95) 92 Room Air 10/10/17 03:00 56 23 118/63 (81) 94 Room Air 10/10/17 02:00 57 15 118/70 (86) 96 Room Air 10/10/17 01:00 59 17 146/81 (102) 91 Room Air 10/10/17 00:00 Room Air 10/10/17 00:00 36.6 67 15 123/78 (93) 96 Room Air 10/09/17 23:00 58 14 171/84 (113) 100 Room Air 10/09/17 22:00 60 18 139/76 (97) 99 Room Air 10/09/17 21:00 62 18 133/74 (93) 99 Room Air 10/09/17 21:00 66 18 133/74 (93) 98 Room Air 10/09/17 20:28 65 18 127/73 (91) 95 10/09/17 20:00 99 Room Air 10/09/17 19:58 63 18 122/69 (86) 95 Room Air 10/09/17 19:45 65 12 122/69 (77) 95 10/09/17 19:30 67 15 112/76 (94) 93 10/09/17 19:30 69 18 112/76 (88) 93 Room Air 10/09/17 19:28 63 20 122/69 (86) 95 Room Air 10/09/17 19:15 68 13 115/66 (78) 96 10/09/17 19:00 67 18 117/58 (77) 96 Room Air 10/09/17 19:00 68 13 117/58 (65) 96 10/09/17 18:45 72 13 121/65 (76) 95 10/09/17 18:30 70 18 119/65 (83) 94 Room Air 10/09/17 18:30 73 13 119/65 (75) 95 10/09/17 18:15 69 15 109/59 (66) 96 10/09/17 18:00 72 18 120/61 (80) 96 Room Air 10/09/17 18:00 74 16 120/61 (78) 95 10/09/17 17:45 70 20 118/70 (81) 95 10/09/17 17:30 74 15 140/83 (116) 95 10/09/17 17:30 78 18 140/83 (102) 96 Room Air 10/09/17 17:19 86 26 148/94 (133) 96 10/09/17 17:00 89 18 148/94 (112) 96 Room Air 10/09/17 16:30 69 18 137/70 (92) 97 Room Air 10/09/17 16:00 97 Room Air 10/09/17 16:00 70 20 124/72 (89) 97 Room Air 10/09/17 16:00 73 16 141/83 (98) 97 10/09/17 15:58 70 18 124/72 (89) 97 Room Air 10/09/17 15:50 72 14 96 10/09/17 15:45 71 16 138/67 (117) 96 10/09/17 15:40 71 17 97 10/09/17 15:31 80 18 131/81 (116) 96 10/09/17 15:30 74 14 96 10/09/17 15:30 74 14 96 10/09/17 15:28 68 17 98 10/09/17 15:20 74 16 97 10/09/17 15:15 68 18 131/69 (75) 99 10/09/17 15:10 73 18 99 10/09/17 15:00 66 18 103/71 (83) 99 10/09/17 15:00 66 18 103/71 (83) 99 10/09/17 14:58 73 18 131/69 (89) 97 Room Air 10/09/17 14:54 36.9 98 18 127/76 99 Room Air 10/09/17 14:30 36.9 98 18 127/76 (93) 99 Room Air 10/09/17 14:00 79 149/82 10/09/17 13:44 80 153/90 10/09/17 13:30 74 153/87 10/09/17 13:18 79 163/88 10/09/17 13:01 82 18 168/98 10/09/17 12:44 84 151/92 10/09/17 12:30 84 18 149/81 10/09/17 12:15 87 18 156/94 10/09/17 12:05 90 18 175/99 10/09/17 11:55 90 18 180/111 10/09/17 11:42 80 20 150/88 100 Room Air 10/09/17 11:40 83 10/09/17 11:26 36.5 79 22 182/90 99 Room Air Physical Exam General Appearance: WD/WN, no apparent distress Eyes: bilateral eyes normal inspection ENT: hearing grossly normal Respiratory/Chest: chest non-tender, lungs clear, normal breath sounds, no respiratory distress, no accessory muscle use Cardiovascular: regular rate, rhythm, no edema, no gallop, no JVD, no murmur Neurologic/Psychiatric: no motor/sensory deficits, alert, normal mood/affect, oriented x 3 Skin: normal color, no rash Laboratory Results Last 24 Hours Test 10/09/17 10:44 10/09/17 11:19 10/09/17 11:26 10/10/17 05:28 White Blood Count 7.16 K/uL 5.66 K/uL Red Blood Count 4.72 M/uL 4.60 M/uL Hemoglobin 15.2 g/dL 14.8 g/dL Hematocrit 43.8 % 43.2 % Mean Corpuscular Volume 92.8 fL 93.9 fL Mean Corpuscular Hemoglobin 32.2 pg 32.2 pg Mean Corpuscular Hemoglobin Concent 34.7 g/dl 34.3 g/dl Platelet Count 203 K/uL 180 K/uL Mean Platelet Volume 9.9 fL 9.3 fL Neutrophils (%) (Auto) 81.8 % 61.5 % Lymphocytes (%) (Auto) 13.8 % 24.9 % Monocytes (%) (Auto) 4.1 % 11.8 % Eosinophils (%) (Auto) 0.1 % 1.4 % Basophils (%) (Auto) 0.1 % 0.2 % Neutrophils # (Auto) 5.85 K/uL 3.48 K/uL Lymphocytes # (Auto) 0.99 K/uL 1.41 K/uL Monocytes # (Auto) 0.29 K/uL 0.67 K/uL Eosinophils # (Auto) 0.01 K/uL 0.08 K/uL Basophils # (Auto) 0.01 K/uL 0.01 K/uL RDW Standard Deviation 46.7 fL 48.5 fL RDW Coefficient of Variation 13.7 % 14.0 % Immature Granulocyte % (Auto) 0.1 % 0.2 % Immature Granulocyte # (Auto) 0.01 K/uL 0.01 K/uL Prothrombin Time 10.0 SECONDS Prothromb Time International Ratio 1.0 Activated Partial Thromboplast Time 22.9 SECONDS Partial Thromboplastin Ratio 0.9 Sodium Level 133 mmol/L 137 mmol/L Potassium Level 4.0 mmol/L 3.8 mmol/L Chloride Level 99 mmol/L 103 mmol/L Carbon Dioxide Level 22 mmol/L 29 mmol/L Anion Gap 12.0 mmol/L 20.0 mmol/L 5.0 mmol/L Blood Urea Nitrogen 13 mg/dl 17 mg/dl Creatinine 1.55 mg/dl 0.84 mg/dl Est Creatinine Clear Calc Drug Dose 43.8 ml/min 71.6 ml/min Estimated GFR () 52.9 105.0 Estimated GFR (Non- 45.6 90.6 BUN/Creatinine Ratio 8.5 20.1 Random Glucose 138 mg/dl 90 mg/dl Estimated Average Glucose 114 mg/dl Hemoglobin A1c 5.6 % Calcium Level 10.0 mg/dl 8.8 mg/dl Magnesium Level 2.0 mg/dl 2.2 mg/dl Total Creatine Kinase 91 U/L 115 U/L Creatine Kinase MB 1.2 ng/ml Creatine Kinase MB Ratio 1.3 Troponin I < 0.015 ng/ml < 0.015 ng/ml Bedside Glucose 122 mg/dl Bedside Hemoglobin 17.0 g/dl Bedside Hematocrit 50 % Bedside Sodium 135 mEq/L Bedside Potassium 4.0 mEq/L Bedside Chloride 100 mEq/L Bedside Total CO2 20 mEq/l Bedside Blood Urea Nitrogen 13 mg/dl Bedside Creatinine 1.4 mg/dl Bedside Glucose (other) 139 mg/dl Bedside Ionized Calcium (Deangelo) 1.13 mmol/l Phosphorus Level 3.1 mg/dl Triglycerides Level 88 mg/dl Cholesterol Level 201 mg/dl HDL Cholesterol 66 mg/dl LDL Cholesterol, Calculated 117 mg/dl VLDL Cholesterol, Calculated 18 mg/dl Cholesterol/HDL Ratio 3.0 Assessment and Plan Assessment and Plan: Resolving Stroke -Resolving stroke more likely than TIA based on time when symptoms began to improve -Patient was given alteplase in the ED yesteday -Monitor in ICU for bleeding risk - Keep blood pressure below 185/110 during inpatient stay -Wait 24-48 hours then initiate aspirin 81 mg. -Obtain fasting lipid profile and HbA1c -0 HbA1c 5.6 -Based on results of lipid profile begin moderate to high dose statin Begin Atorvastatin 40 mg based on lipid profile results: Total cholesterol 201, TAG 88, LDL 117, VLDL 18, HDL 66. Impression: total cholesterol just over normal, however patient has very high/good HDL -Clinical decision making defining etiology and rule outs: -Ischemia due to atherosclerosis (small vessel vascular disease) ) vs. Cardiogenic emboli (clot emboli, septic emboli, etc.) vs. peripheral emboli ( carotid) -Obtain Echocardiogram Echo results show normal ventricular size and systolic function with EF 60-65A%, there is type 1 diastolic dysfunction, and no valve abnormalities. -24 hr. cardiac monitoring - No dysrhythmias noted -Risk factor medication -Discussed with patient that modifiable risk factors include exercise, diet, and smoking 6mm right middle Lobe pulmonary nodule -Follow per Fleischner criteria, based on radiologic findings this appears to be a CT scan at 6-12 months -of note is patient's smoking history Chest pain and possible angina -Patient complained of chest pain at the time of his initial stroke symptoms -Described angina symptoms of heavy pressure like someone standing on chest, shortness of breath, diaphoresis -Obtain cardiac stress test in outpatient setting
[2017-10-10] MEDS: THIAMINE HCL 100 MG TAB PO SCH (09:06)
--- NOTE | 2017-10-10 09:13 | Neurology Consultation ---
Neurology Consultation Date of Consultation: Oct 10, 2017. Attending Physician: George Farmer D.O. Primary Care Physician: Domingo Hoffman M.D. 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 He recalls experiencing an episode of left-sided chest pain and pressure with associated rapid heartbeat that occurred at around 8 AM. The symptom resolved. At around 9:30 AM he developed sudden onset left-sided weakness affecting the left arm and leg. He reports his limbs would not move as he wished. His left hand and foot felt numb as well. The patient is right handed. He recalls having some associated difficulty with his vision off to the left. He also recalls feeling a little confused and later reported a mild frontal headache. The patient does not have a known history of stroke or TIA. He does not see his physicians very often. He does use chewing tobacco on a daily basis and also smokes a few cigarettes in the morning. He also consumes a moderate amount of beer on a daily basis. 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 While in the emergency department, the patient continued to exhibit left-sided weakness. Electrocardiogram reported normal sinus rhythm, [address] of the head was negative for hemorrhage or acute process. I reviewed the images as well as the radiologist's interpretation of this test area did CT angiography of the head was unremarkable. A CTA of the neck revealed a 50% stenosis of the right internal carotid artery and a 40% stenosis of the left internal carotid artery. 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 A tele-stroke consultation was also obtained while the patient was in the emergency department. TPA was administered. His left-sided weakness is resolved this morning. His headache is also resolved. He does not complain of any vision loss at this time. A transthoracic echocardiogram is unremarkable. No cardioembolic source identified. Past Medical/Surgical History Medical Problems: (1) CVA (cerebral vascular accident) Status: Acute (2) Ischemic chest pain Status: Acute (3) Palpitations Status: Acute (4) Received intravenous tissue plasminogen activator (t-PA) in emergency department Status: Acute (5) Strain of lumbar region Status: Acute (6) Stroke Status: Acute Family History Patient's father had a myocardial infarction in his 70s Social History Smokeless Tobacco Use: Yes Alcohol Use: socially Drug Use: none Marital Status: Housing Status: lives with family Occupation Status: retired Allergies Coded Allergies: Penicillins (Verified Allergy, Unknown, 10/09/17) Current Inpatient Medications Current Inpatient Medications Medications (Trade) Dose Ordered Sig/Latasha Route Start Time Stop Time Status Last Admin Dose Admin Atorvastatin Calcium (Lipitor Tab) 40 mg QAM PO 10/10/17 09:00 11/09/17 08:59 10/10/17 07:49 40 MG Miscellaneous Information (Pharmacist Discharge Med Rec Consult) 1 ea UD PRN N/A 10/09/17 13:15 11/08/17 13:14 Acetaminophen (Tylenol Tab) 650 mg Q4H PRN PO 10/09/17 13:15 11/08/17 13:14 Al Hydrox/Mg Hydrox/Simethicone (Maalox Max Susp) 15 ml Q4H PRN PO 10/09/17 13:15 11/08/17 13:14 Magnesium Hydroxide (Milk Of Magnesia Susp) 30 ml Q12H PRN PO 10/09/17 13:15 11/08/17 13:14 Ondansetron HCl (Zofran Inj) 4 mg Q6H PRN IV 10/09/17 13:15 11/08/17 13:14 Thiamine HCl (Vitamin B-1 Tab) 100 mg QAM PO 10/10/17 09:00 11/09/17 08:59 Folic Acid (Folvite Tab) 1 mg QAM PO 10/10/17 09:00 11/09/17 08:59 Review of Systems Constitutional: No fever or chills Eyes: As per history of present illness ENT: No vertigo or hearing loss Cardiovascular: As per history of present illness Respiratory: No coughing wheezing or shortness of breath Neurological: As per history of present illness A full 10 point review of systems was obtained in this patient with pertinent positives and negatives described in the history of present illness and otherwise listed above. All remaining systems reviewed and are negative. Physical Exam Vital Signs (Past 24 Hrs): Date Time Temp Pulse Resp B/P (MAP) Pulse Ox O2 Delivery O2 Flow Rate FiO2 10/10/17 08:00 63 18 137/68 (91) 97 Room Air 10/10/17 08:00 70 18 137/68 (91) 95 Room Air 10/10/17 08:00 Room Air 10/10/17 07:00 54 14 118/76 (90) 97 Room Air 10/10/17 07:00 54 14 118/76 (90) 97 Room Air 10/10/17 06:00 54 12 121/79 (93) 97 Room Air 10/10/17 05:00 61 19 130/83 (99) 95 Room Air 10/10/17 04:00 36.6 10/10/17 04:00 Room Air 10/10/17 04:00 55 19 131/77 (95) 92 Room Air 10/10/17 03:00 56 23 118/63 (81) 94 Room Air 10/10/17 02:00 57 15 118/70 (86) 96 Room Air 10/10/17 01:00 59 17 146/81 (102) 91 Room Air 10/10/17 00:00 Room Air 10/10/17 00:00 36.6 67 15 123/78 (93) 96 Room Air 10/09/17 23:00 58 14 171/84 (113) 100 Room Air 10/09/17 22:00 60 18 139/76 (97) 99 Room Air 10/09/17 21:00 62 18 133/74 (93) 99 Room Air 10/09/17 21:00 66 18 133/74 (93) 98 Room Air 10/09/17 20:28 65 18 127/73 (91) 95 10/09/17 20:00 99 Room Air 10/09/17 19:58 63 18 122/69 (86) 95 Room Air 10/09/17 19:45 65 12 122/69 (77) 95 10/09/17 19:30 67 15 112/76 (94) 93 10/09/17 19:30 69 18 112/76 (88) 93 Room Air 10/09/17 19:28 63 20 122/69 (86) 95 Room Air 10/09/17 19:15 68 13 115/66 (78) 96 10/09/17 19:00 67 18 117/58 (77) 96 Room Air 10/09/17 19:00 68 13 117/58 (65) 96 10/09/17 18:45 72 13 121/65 (76) 95 10/09/17 18:30 70 18 119/65 (83) 94 Room Air 10/09/17 18:30 73 13 119/65 (75) 95 10/09/17 18:15 69 15 109/59 (66) 96 10/09/17 18:00 72 18 120/61 (80) 96 Room Air 10/09/17 18:00 74 16 120/61 (78) 95 10/09/17 17:45 70 20 118/70 (81) 95 10/09/17 17:30 74 15 140/83 (116) 95 10/09/17 17:30 78 18 140/83 (102) 96 Room Air 10/09/17 17:19 86 26 148/94 (133) 96 10/09/17 17:00 89 18 148/94 (112) 96 Room Air 10/09/17 16:30 69 18 137/70 (92) 97 Room Air 10/09/17 16:00 97 Room Air 10/09/17 16:00 70 20 124/72 (89) 97 Room Air 10/09/17 16:00 73 16 141/83 (98) 97 10/09/17 15:58 70 18 124/72 (89) 97 Room Air 10/09/17 15:50 72 14 96 10/09/17 15:45 71 16 138/67 (117) 96 10/09/17 15:40 71 17 97 10/09/17 15:31 80 18 131/81 (116) 96 10/09/17 15:30 74 14 96 10/09/17 15:30 74 14 96 10/09/17 15:28 68 17 98 10/09/17 15:20 74 16 97 10/09/17 15:15 68 18 131/69 (75) 99 10/09/17 15:10 73 18 99 10/09/17 15:00 66 18 103/71 (83) 99 10/09/17 15:00 66 18 103/71 (83) 99 10/09/17 14:58 73 18 131/69 (89) 97 Room Air 10/09/17 14:54 36.9 98 18 127/76 99 Room Air 10/09/17 14:30 36.9 98 18 127/76 (93) 99 Room Air 10/09/17 14:00 79 149/82 10/09/17 13:44 80 153/90 10/09/17 13:30 74 153/87 10/09/17 13:18 79 163/88 10/09/17 13:01 82 18 168/98 10/09/17 12:44 84 151/92 10/09/17 12:30 84 18 149/81 10/09/17 12:15 87 18 156/94 10/09/17 12:05 90 18 175/99 10/09/17 11:55 90 18 180/111 10/09/17 11:42 80 20 150/88 100 Room Air 10/09/17 11:40 83 10/09/17 11:26 36.5 79 22 182/90 99 Room Air The patient is a well-developed, well-nourished elderly male. He is lying comfortably in bed. The patient is alert and fully oriented. Recent and remote memory intact. Attention and concentration normal. Patient exhibits a normal spontaneous speech pattern as well as an age-appropriate fund of knowledge and normal vocabulary. Visual heller full to confrontation. Visual acuity normal. Pupils equal round reactive to light and accommodation. Eye movements normal. Facial sensation intact. There is normal facial symmetry and strength. No facial droop. Hearing intact to finger rub bilaterally. Palate elevates to midline. Shoulder shrug strength intact bilaterally. Tongue protrudes to midline. Sensation intact to light touch, temperature, vibration, and proprioception for all 4 limbs. Deep tendon reflexes are intact and symmetrical for the arms and legs. Plantar responses downgoing bilaterally. There is no dysdiadochokinesia or dysmetria with finger to nose or heel to li bilaterally. Ophthalmoscopic examination reveals normal-appearing optic disks and posterior segments. No papilledema or hemorrhages. Carotid pulses normal bilaterally, no bruits to auscultation. Gait and station not tested due to safety concerns. Patient exhibits normal muscle strength and tone for all 4 limbs, proximally and distally. There is no atrophy. No abnormal movements observed. Laboratory Results Past 24 Hours: 10/10/17 05:28 Red Blood Count 4.60, Mean Corpuscular Volume 93.9, Mean Corpuscular Hemoglobin 32.2, Mean Corpuscular Hemoglobin Concent 34.3, Mean Platelet Volume 9.3, Neutrophils (%) (Auto) 61.5, Lymphocytes (%) (Auto) 24.9, Monocytes (%) (Auto) 11.8, Eosinophils (%) (Auto) 1.4, Basophils (%) (Auto) 0.2, Neutrophils # (Auto ) 3.48, Lymphocytes # (Auto) 1.41, Monocytes # (Auto) 0.67, Eosinophils # (Auto ) 0.08, Basophils # (Auto) 0.01 10/10/17 05:28 Test 10/09/17 10:44 10/09/17 11:19 10/09/17 11:26 10/10/17 05:28 Prothrombin Time 10.0 SECONDS (9.0-12.0) Prothromb Time International Ratio 1.0 (0.9-1.1) Activated Partial Thromboplast Time 22.9 SECONDS (21.0-31.0) Partial Thromboplastin Ratio 0.9 Estimated Average Glucose 114 mg/dl Hemoglobin A1c 5.6 % (4.5-5.6) Creatine Kinase MB 1.2 ng/ml (0.5-3.6) Creatine Kinase MB Ratio 1.3 (0-3.0) Bedside Glucose 122 mg/dl (70-99) Bedside Hemoglobin 17.0 g/dl (14.0-18.0) Bedside Hematocrit 50 % (42-52) Bedside Sodium 135 mEq/L (135-144) Bedside Potassium 4.0 mEq/L (3.3-5.0) Bedside Chloride 100 mEq/L (101-112) Bedside Total CO2 20 mEq/l (24-31) Bedside Blood Urea Nitrogen 13 mg/dl (7-18) Bedside Creatinine 1.4 mg/dl (0.6-1.3) Bedside Glucose (other) 139 mg/dl (70-99) Bedside Ionized Calcium (Deangelo) 1.13 mmol/l (1.12-1.32) White Blood Count 5.66 K/uL (4.8-10.8) Red Blood Count 4.60 M/uL (4.7-6.1) Hemoglobin 14.8 g/dL (14.0-18.0) Hematocrit 43.2 % (42-52) Mean Corpuscular Volume 93.9 fL (80-100) Mean Corpuscular Hemoglobin 32.2 pg (25-34) Mean Corpuscular Hemoglobin Concent 34.3 g/dl (32-36) Platelet Count 180 K/uL (130-400) Mean Platelet Volume 9.3 fL (7.4-10.4) Neutrophils (%) (Auto) 61.5 % Lymphocytes (%) (Auto) 24.9 % Monocytes (%) (Auto) 11.8 % Eosinophils (%) (Auto) 1.4 % Basophils (%) (Auto) 0.2 % Neutrophils # (Auto) 3.48 K/uL (1.4-6.5) Lymphocytes # (Auto) 1.41 K/uL (1.2-3.4) Monocytes # (Auto) 0.67 K/uL (0.11-0.59) Eosinophils # (Auto) 0.08 K/uL (0-0.5) Basophils # (Auto) 0.01 K/uL (0-0.2) RDW Standard Deviation 48.5 fL (36.4-46.3) RDW Coefficient of Variation 14.0 % (11.5-14.5) Immature Granulocyte % (Auto) 0.2 % Immature Granulocyte # (Auto) 0.01 K/uL (0.00-0.02) Anion Gap 5.0 mmol/L (3-11) Est Creatinine Clear Calc Drug Dose 71.6 ml/min Estimated GFR () 105.0 Estimated GFR (Non- 90.6 BUN/Creatinine Ratio 20.1 (10-20) Calcium Level 8.8 mg/dl (8.5-10.1) Phosphorus Level 3.1 mg/dl (2.5-4.9) Magnesium Level 2.2 mg/dl (1.8-2.4) Total Creatine Kinase 115 U/L (39-308) Troponin I < 0.015 ng/ml (0-0.045) Triglycerides Level 88 mg/dl (0-150) Cholesterol Level 201 mg/dl (0-200) HDL Cholesterol 66 mg/dl LDL Cholesterol, Calculated 117 mg/dl VLDL Cholesterol, Calculated 18 mg/dl Cholesterol/HDL Ratio 3.0 Date/Time Source Procedure Growth Status 10/09/17 14:30 Nasal MRSA DNA Surveillance Screen - Final Specimen Negative for MRSA by DNA Probe Complete Impression Probable TIA localizing to the right cerebral hemisphere presenting with a left hemiparesis as well as associated left visual field deficit. His symptoms resolved after administration of TPA. He is currently neurologically intact. As his symptoms were preceded by an episode of chest pain and palpitations, cardioembolism would be a probable etiology. Other pertinent risk factors for this patient include chronic tobacco use. The moderate stenoses of both internal carotid arteries (right greater than left) are not likely clinically significant. The mild fusiform aneurysmal dilatation of the distal left vertebral artery is not clinically significant. Plan MRI of the brain with and without contrast to further exclude acute stroke. A repeat CT of the head has been ordered to exclude hemorrhagic conversion in the post TPA setting which is fine and may be done in addition to the above brain MRI. This patient should receive counseling regarding tobacco cessation. Continue to monitor for occult arrhythmia/atrial fibrillation. Consider obtaining an outpatient Holter monitor as well. No further recommendations at this time.
--- NOTE | 2017-10-10 09:49 | Medical Student: [facility] ---
Med Student History & Physical Date & Time of Service: Oct 10, 2017 at 08:54 Chief Complaint: Stroke Primary Care Physician: Domingo Hoffman M.D. History of Present Illness Source: patient, hospital records Pt is a 67 yo right-handed M with minimal pmhx consulted for stroke-like sx which resolved with tPA. 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 Shortly thereafter, he noticed left-sided weakness, numbness in his toes, and vision blurriness, which was most pronounced on the left side. During the incidence, he noted dizziness, diaphoresis, SOB, and confusion. He noted the chest pain was non-radiating, constant and felt like a pressure. His chest pain resolved prior to arrival to the ED, but his left-sided weakness, numbness and vision blurriness persisted. He was evaluated in the ED for possible stroke and decided to be a candidate for tPA administration. tPA administered at 12:15, approx 2.5 hrs after sx onset. After tPA, pt noticed dramatic improvement in his weakness, numbness and vision blurriness. He notes his sx has resolved and he feels back to baseline: denies any residual weakness, sensory loss or eye abnormalities. He notes he is healthy and does not take any prescribed meds, but hasn't seen his primary doctor in many years. Past Medical/Surgical History Medical Problems: (1) CVA (cerebral vascular accident) Status: Acute (2) Ischemic chest pain Status: Acute (3) Palpitations Status: Acute (4) Prostate infection Status: Resolved (5) Received intravenous tissue plasminogen activator (t-PA) in emergency department Status: Acute (6) Strain of lumbar region Status: Acute (7) Stroke Status: Acute Family History Notes no fmhx of stroke. Father: heart disease ([place] in 70s) Social History Smoking Status: Current Every Day Smoker Smokeless Tobacco Use: Yes Alcohol Use: socially Drug Use: none Marital Status: Housing status: lives with family Occupational Status: retired Immunizations History of Influenza Vaccine: Yes Influenza Vaccine Date: Jul 18, 2010 History of Tetanus Vaccine?: No History of Pneumococcal: No History of Hepatitis B Vaccine: No Allergies Coded Allergies: Penicillins (Verified Allergy, Unknown, 10/09/17) Medications Acetaminophen (Tylenol Arthritis Ext Rel), 325 MG PO UD Review of Systems Constitutional: No fever Eyes: No eye pain, No diplopia ENT: No hearing loss Respiratory: No shortness of breath Cardiovascular: No chest pain Neurologic: No weakness, No numbness/tingling Physical Exam Vital Signs (24 Hours) Date Time Temp Pulse Resp B/P (MAP) Pulse Ox O2 Delivery O2 Flow Rate FiO2 10/10/17 08:00 63 18 137/68 (91) 97 Room Air 10/10/17 08:00 70 18 137/68 (91) 95 Room Air 10/10/17 08:00 Room Air 10/10/17 07:00 54 14 118/76 (90) 97 Room Air 10/10/17 07:00 54 14 118/76 (90) 97 Room Air 10/10/17 06:00 54 12 121/79 (93) 97 Room Air 10/10/17 05:00 61 19 130/83 (99) 95 Room Air 10/10/17 04:00 36.6 10/10/17 04:00 Room Air 10/10/17 04:00 55 19 131/77 (95) 92 Room Air 10/10/17 03:00 56 23 118/63 (81) 94 Room Air 10/10/17 02:00 57 15 118/70 (86) 96 Room Air 10/10/17 01:00 59 17 146/81 (102) 91 Room Air 10/10/17 00:00 Room Air 10/10/17 00:00 36.6 67 15 123/78 (93) 96 Room Air 10/09/17 23:00 58 14 171/84 (113) 100 Room Air 10/09/17 22:00 60 18 139/76 (97) 99 Room Air 10/09/17 21:00 62 18 133/74 (93) 99 Room Air 10/09/17 21:00 66 18 133/74 (93) 98 Room Air 10/09/17 20:28 65 18 127/73 (91) 95 10/09/17 20:00 99 Room Air 10/09/17 19:58 63 18 122/69 (86) 95 Room Air 10/09/17 19:45 65 12 122/69 (77) 95 10/09/17 19:30 67 15 112/76 (94) 93 10/09/17 19:30 69 18 112/76 (88) 93 Room Air 10/09/17 19:28 63 20 122/69 (86) 95 Room Air 10/09/17 19:15 68 13 115/66 (78) 96 10/09/17 19:00 67 18 117/58 (77) 96 Room Air 10/09/17 19:00 68 13 117/58 (65) 96 10/09/17 18:45 72 13 121/65 (76) 95 10/09/17 18:30 70 18 119/65 (83) 94 Room Air 10/09/17 18:30 73 13 119/65 (75) 95 10/09/17 18:15 69 15 109/59 (66) 96 10/09/17 18:00 72 18 120/61 (80) 96 Room Air 10/09/17 18:00 74 16 120/61 (78) 95 10/09/17 17:45 70 20 118/70 (81) 95 10/09/17 17:30 74 15 140/83 (116) 95 10/09/17 17:30 78 18 140/83 (102) 96 Room Air 10/09/17 17:19 86 26 148/94 (133) 96 10/09/17 17:00 89 18 148/94 (112) 96 Room Air 10/09/17 16:30 69 18 137/70 (92) 97 Room Air 10/09/17 16:00 97 Room Air 10/09/17 16:00 70 20 124/72 (89) 97 Room Air 10/09/17 16:00 73 16 141/83 (98) 97 10/09/17 15:58 70 18 124/72 (89) 97 Room Air 10/09/17 15:50 72 14 96 10/09/17 15:45 71 16 138/67 (117) 96 10/09/17 15:40 71 17 97 10/09/17 15:31 80 18 131/81 (116) 96 10/09/17 15:30 74 14 96 10/09/17 15:30 74 14 96 10/09/17 15:28 68 17 98 10/09/17 15:20 74 16 97 10/09/17 15:15 68 18 131/69 (75) 99 10/09/17 15:10 73 18 99 10/09/17 15:00 66 18 103/71 (83) 99 10/09/17 15:00 66 18 103/71 (83) 99 10/09/17 14:58 73 18 131/69 (89) 97 Room Air 10/09/17 14:54 36.9 98 18 127/76 99 Room Air 10/09/17 14:30 36.9 98 18 127/76 (93) 99 Room Air 10/09/17 14:00 79 149/82 10/09/17 13:44 80 153/90 10/09/17 13:30 74 153/87 10/09/17 13:18 79 163/88 10/09/17 13:01 82 18 168/98 10/09/17 12:44 84 151/92 10/09/17 12:30 84 18 149/81 10/09/17 12:15 87 18 156/94 10/09/17 12:05 90 18 175/99 10/09/17 11:55 90 18 180/111 10/09/17 11:42 80 20 150/88 100 Room Air 10/09/17 11:40 83 10/09/17 11:26 36.5 79 22 182/90 99 Room Air General Appearance: WD/WN, no apparent distress Head: normocephalic, atraumatic Eyes: normal inspection, PERRL, EOMI, sclerae normal, funduscopic exam normal Cardiovascular: regular rate, rhythm Neuro physical exam: Pt is alert and oriented. Normal mood and affect. Speech is clear and fluent with good comprehension, repetition and naming. Appropriate level of knowledge. CN: CN1: not tested CN2: visual heller full to confrontation, fundoscopic exam is normal with no vascular changes, PERRLA CN3,4,6: EOM intact, no ptosis CN5: facial sensation is intact to light touch and temperature in all 3 divisions bilaterally CN7: face is symmetric with normal eyebrow raise, eye closure, and smile CN8: hearing is normal to rubbing fingers CN9, 10: uvual is midline, palate elevates symmetrically bilaterally CN11: Shoulder shrug intact bilaterally CN12: tongue is midline with normal movements Motor: There is no pronator drift of out-stretched arms. Muscle bulk and tone are normal. Strength full bilaterally [5/5] in upper extremities (deltoids, biceps, triceps, wrist extension) and lower extremities (hip flexion/extension, knee flexion/extension, ankle flexion/extension). Reflexes: Reflexes are 2+ and symmetric at the triceps, biceps, brachioradialis, knees, Achilles. Babinski reflex is downgoing. Coordination: No dysmetria on finger to nose test and heel to li. Gait and station: Not assessed due to pt safety Diagnostics Laboratory Results Results Past 24 Hours Test 10/09/17 10:44 10/09/17 11:19 10/09/17 11:26 10/10/17 05:28 Range/Units White Blood Count 7.16 5.66 4.8-10.8 K/uL Red Blood Count 4.72 4.60 4.7-6.1 M/uL Hemoglobin 15.2 14.8 14.0-18.0 g/dL Hematocrit 43.8 43.2 42-52 % Mean Corpuscular Volume 92.8 93.9 80-100 fL Mean Corpuscular Hemoglobin 32.2 32.2 25-34 pg Mean Corpuscular Hemoglobin Concent 34.7 34.3 32-36 g/dl Platelet Count 203 180 130-400 K/uL Mean Platelet Volume 9.9 9.3 7.4-10.4 fL Neutrophils (%) (Auto) 81.8 61.5 % Lymphocytes (%) (Auto) 13.8 24.9 % Monocytes (%) (Auto) 4.1 11.8 % Eosinophils (%) (Auto) 0.1 1.4 % Basophils (%) (Auto) 0.1 0.2 % Neutrophils # (Auto) 5.85 3.48 1.4-6.5 K/uL Lymphocytes # (Auto) 0.99 1.41 1.2-3.4 K/uL Monocytes # (Auto) 0.29 0.67 0.11-0.59 K/uL Eosinophils # (Auto) 0.01 0.08 0-0.5 K/uL Basophils # (Auto) 0.01 0.01 0-0.2 K/uL RDW Standard Deviation 46.7 48.5 36.4-46.3 fL RDW Coefficient of Variation 13.7 14.0 11.5-14.5 % Immature Granulocyte % (Auto) 0.1 0.2 % Immature Granulocyte # (Auto) 0.01 0.01 0.00-0.02 K/uL Prothrombin Time 10.0 9.0-12.0 SECONDS Prothromb Time International Ratio 1.0 0.9-1.1 Activated Partial Thromboplast Time 22.9 21.0-31.0 SECONDS Partial Thromboplastin Ratio 0.9 Sodium Level 133 137 136-145 mmol/L Potassium Level 4.0 3.8 3.5-5.1 mmol/L Chloride Level 99 103 98-107 mmol/L Carbon Dioxide Level 22 29 21-32 mmol/L Anion Gap 12.0 20.0 5.0 3-11 mmol/L Blood Urea Nitrogen 13 17 7-18 mg/dl Creatinine 1.55 0.84 0.60-1.40 mg/dl Est Creatinine Clear Calc Drug Dose 43.8 71.6 ml/min Estimated GFR () 52.9 105.0 Estimated GFR (Non- 45.6 90.6 BUN/Creatinine Ratio 8.5 20.1 10-20 Random Glucose 138 90 70-99 mg/dl Estimated Average Glucose 114 mg/dl Hemoglobin A1c 5.6 4.5-5.6 % Calcium Level 10.0 8.8 8.5-10.1 mg/dl Magnesium Level 2.0 2.2 1.8-2.4 mg/dl Total Creatine Kinase 91 115 39-308 U/L Creatine Kinase MB 1.2 0.5-3.6 ng/ml Creatine Kinase MB Ratio 1.3 0-3.0 Troponin I < 0.015 < 0.015 0-0.045 ng/ml Bedside Glucose 122 70-99 mg/dl Bedside Hemoglobin 17.0 14.0-18.0 g/dl Bedside Hematocrit 50 42-52 % Bedside Sodium 135 135-144 mEq/L Bedside Potassium 4.0 3.3-5.0 mEq/L Bedside Chloride 100 101-112 mEq/L Bedside Total CO2 20 24-31 mEq/l Bedside Blood Urea Nitrogen 13 7-18 mg/dl Bedside Creatinine 1.4 0.6-1.3 mg/dl Bedside Glucose (other) 139 70-99 mg/dl Bedside Ionized Calcium (Deangelo) 1.13 1.12-1.32 mmol/l Phosphorus Level 3.1 2.5-4.9 mg/dl Triglycerides Level 88 0-150 mg/dl Cholesterol Level 201 0-200 mg/dl HDL Cholesterol 66 mg/dl LDL Cholesterol, Calculated 117 mg/dl VLDL Cholesterol, Calculated 18 mg/dl Cholesterol/HDL Ratio 3.0 Microbiology Results 10/09/17 MRSA DNA Surveillance Screen - Final, Complete Specimen Negative for MRSA by DNA Probe Diagnostic Radiology Head CT - 10/09/17 FINDINGS: No intra or extra-axial mass lesions are visualized. There is no CT evidence of acute cortical infarction. There is no evidence of midline shift. There is no acute hemorrhage. No calvarial fractures are visualized. There are minimal white matter hypodensities likely on a small vessel basis. There is no evidence of pathologic ventricular dilatation. There is no evidence of acute sinusitis IMPRESSION: No acute intracranial findings CT Dissection - 10/09/17 FINDINGS: Thyroid: Imaged portions of the thyroid gland are normal in size and attenuation. Thoracic aorta: No intramural hematoma is seen on the unenhanced series. There is mild atherosclerotic calcification of the thoracic aorta, which is normal in caliber and demonstrates standard 3-vessel arch anatomy. No dissection is seen. The arch vessels are widely patent. Pulmonary vasculature: The pulmonary trunk is normal in caliber. There are no central filling defects identified in the pulmonary vessels to suggest pulmonary embolus. Note that this examination was not specifically protocoled to assess for pulmonary emboli. Heart: The heart is normal in size and without pericardial effusion. There are coronary artery calcifications. Lungs and pleural spaces: Evaluation of the lung parenchyma is modestly degraded by motion artifact. Mild emphysematous change is noted. Biapical scarring is observed. There is minimal dependent atelectasis. No airspace consolidation or pleural effusion is seen. The trachea and central airways are clear. A 6 mm right middle lobe pulmonary nodule is seen on image #177 of the unenhanced series. A small fat-containing Bochdalek hernia is seen at the right lung base. Mediastinum: There is no mediastinal lymphadenopathy. Merlene: Clear. Axillae: There is no axillary lymphadenopathy. Upper abdomen: Partially visualized upper abdominal viscera is within normal limits. Skeletal structures: No lytic or blastic bony lesions are seen. Fusion hardware is seen in the lower cervical region. IMPRESSION: 1. Unremarkable CT angiogram of the thoracic aorta. 2. Mild emphysema. 3. No airspace consolidation or pleural effusion is identified. 4. There is an indeterminant 6 mm right middle lobe pulmonary nodule. This can be followed as per the Fleischner criteria. 5. Additional findings as above. CT Angio Brain - 10/09/17 FINDINGS: Brain parenchyma: There are age-related involutional changes noting mild subcortical and periventricular microangiopathic disease. There is no hemorrhage , mass effect, or evidence of acute territorial ischemia by CT criteria. There is no evidence of enhancing mass lesion on the angiogram phase images. No extra- axial fluid collection is seen. Flores-white matter differentiation is preserved. Ventricles, sulci, and cisterns: Prominent secondary to involutional change. CT angiogram of the brain: There are tiny posterior communicating arteries. The internal carotid arteries are widely patent, as are the anterior and middle cerebral arteries. The vertebrobasilar system and posterior cerebral arteries are widely patent. The vertebral arteries are codominant. There is no aneurysm, high-grade stenosis, or focal vessel cutoff identified throughout the intracranial circulation. Dural sinuses: Clear as visualized. Orbits: The bony orbits are intact. The orbital contents are normal as visualized. Sinuses and mastoids: The visualized paranasal sinuses are clear. The mastoid air cells are well pneumatized. Calvarium: Unremarkable. IMPRESSION: 1. There is no hemorrhage, mass effect, or evidence of acute territorial ischemia by CT criteria. 2. Unremarkable CT angiogram of the brain. CT Angio Neck - 10/09/17 FINDINGS: The aortic arch and proximal great vessels are widely patent. No central venous stenosis or occlusion within the bilateral common carotid or bilobed vertebral arteries. Mild focal dilatation within the distal left vertebral artery at the C2 level which measures up to 5 mm in diameter. This suggests a small fusiform aneurysm. Moderate amount of calcified and noncalcified plaque within the right carotid bulb a large amount of calcified plaque within the left carotid bulb. There is approximately 50% focal stenosis at the origin of the right internal carotid artery due to the atherosclerotic plaque. There is approximately 40% stenosis at the proximal 1.5 cm of the left internal carotid artery due to the calcified plaque. The mid to distal bilateral internal carotid arteries are widely patent. Anterior cervical discectomy and fusion from C5 through C7. IMPRESSION: 1. Approximately 50% focal stenosis at the origin of the right internal carotid artery and approximately 40% stenosis involving the proximal left internal carotid artery as described above. 2. 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 CXR normal Normal EKG, No change from prior EKG Impression Assessment and Plan Pt is a 67 yo right handed M who presented with initial chest pain and palpations, and 2.5 hrs of left-sided weakness, numbness and vision blurriness, which resolved after administration of tPA. Pt notes no hx of stroke, heart disease or lung disease. Currently he is neurologically intact and has no residual sx. Left-sided weakness, numbness, and blurriness of vision likely 2/2 ischemic stroke due to pt's tobacco hx, and sx duration, and resolution following tPA administration. Pt has potential risk factors for both thrombotic stroke ( tobacco hx and carotid stenosis present on angiogram) and cardioembolic stroke ( possible atrial fibrillation before onset of stroke sx). DDx also includes TIA. Localization likely to right cerebral hemisphere due to left-sided weakness, left visual field defect. Plan: 1. Ischemic Stroke a. MRI of brain to exclude acute stroke, CT brain to exclude bleeding post- tPA b. 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
--- NOTE | 2017-10-10 13:21 | DIAGNOSTIC IMAGING REPORT ---
MRI OF THE BRAIN WITHOUT AND WITH IV CONTRAST CLINICAL HISTORY: Left arm and leg numbness. Possible transient ischemic attack. COMPARISON STUDY: Head CT and CTA of the head October 09, 2017. TECHNIQUE: Utilizing a 1.5 Unique magnet and dedicated coil, multiplanar, multiecho imaging of the brain was performed pre and postcontrast administration. IV administration of 6 mL of Gadavist contrast was uneventful. FINDINGS: There are no foci of restricted diffusion. No acute intracranial hemorrhage, midline shift or mass effect is present. Ventricular system is normal. Basilar cisterns are patent. There are no extra-axial collections. Flow-voids for the major intracranial vessels are present. No intracranial mass or pathologic enhancement is identified. Several punctate white matter T2 hyperintense foci suggest mild small vessel disease. Calvarial signal is maintained. Orbits and sinuses are unremarkable. Flow-voids for the major intracranial vessels are present. There is mild cerebellar atrophy. IMPRESSION: 1. No acute intracranial findings. 2. No intracranial mass or pathologic enhancement. 3. Minimal small vessel disease. Electronically signed by: Kirill Mccall M.D. 10/10/2017 1:19 PM Dictated Date/Time: 10/10/2017 1:14 PM
[2017-10-10] MEDS ORDERED: NURSING VERBAL MED ORDER ONE (13:45)
[2017-10-10] MEDS: ASPIRIN 81 MG ECTAB PO SCH (14:46)
[2017-10-10] MEDS: ENOXAPARIN 40 MG/0.4 ML SYR SQ SCH (14:47)
--- NOTE | 2017-10-10 16:20 | Critical Care Progress Note ---
Critical Care Progress Note Date of Service Oct 10, 2017. ICU Day ICU Day Number: [address] Boyce Subjective Doing well Objective VITAL SIGNS - Vital signs and nursing notes were reviewed. GENERAL - 67-year-old male appearing his stated age who is in no acute distress. Communicates well with provider and answers questions appropriately. HEAD - Normocephalic, Atraumatic. EYES - PERRL with EOMI bilaterally. Sclera anicteric. Palpebral conjunctiva pink and moist with no injection noted. EARS - No deformities of external structures noted on gross examination bilaterally. NOSE - Midline and without cyanosis. No epistaxis or purulent drainage noted. MOUTH/OROPHARYNX - Without perioral cyanosis. Buccal mucosa pink and moist and without leukoplakia. Tongue midline with equal elevation of palate bilaterally. NECK - Neck with FROM. Supple to palpation. No nuchal rigidity. LUNGS - Chest wall symmetric without accessory muscle use, intercostals retractions, or central cyanosis. Normal vesicular breath sounds CTA B/L. No wheezes, rales, or rhonchi appreciated. CARDIAC - RRR with S1/S2. No murmur, rubs, or gallops appreciated. ABDOMEN - Abdominal contour flat and without pulsations or visible masses. BS normoactive all four quadrants. No tenderness, palpable masses, hepatosplenomegaly, or ascites noted. EXTREMITIES - No pretibial edema present. +3/5 radial and dorsalis pedis pulses palpated throughout. FROM throughout. +5/5 strength noted in UE/LE bilaterally. NEUROLOGIC - Cranial nerves II through XII grossly intact. Sensory intact to light touch throughout. Patellar reflexes +2/4. Patient able to perform rapid alternating movements appropriately. Negative Drift. PSYCH - A&Ox3 and cooperates fully with examiner. Pt is very pleasant and interacts well with examiner. MRI brain today: IMPRESSION: 1. No acute intracranial findings. 2. No intracranial mass or pathologic enhancement. 3. Minimal small vessel disease. Assessment & Plan Acute CVA,s/p thrombolysis Plan: MRI did not reveal any abnormalities. patient made a remarkable recovery post tPA Started on ASA Consider cardiac monitoring as outpatient to rule out a-fib Echo reviewed May be transferred to monitored floor Critical care time spent 25 minutes Data Medications: Current Inpatient Medications Medications (Trade) Dose Ordered Sig/Latasha Route Start Time Stop Time Status Last Admin Dose Admin Atorvastatin Calcium (Lipitor Tab) 40 mg QAM PO 10/10/17 09:00 11/09/17 08:59 10/10/17 07:49 40 MG Miscellaneous Information (Pharmacist Discharge Med Rec Consult) 1 ea UD PRN N/A 10/09/17 13:15 11/08/17 13:14 Acetaminophen (Tylenol Tab) 650 mg Q4H PRN PO 10/09/17 13:15 11/08/17 13:14 Al Hydrox/Mg Hydrox/Simethicone (Maalox Max Susp) 15 ml Q4H PRN PO 10/09/17 13:15 11/08/17 13:14 Magnesium Hydroxide (Milk Of Magnesia Susp) 30 ml Q12H PRN PO 10/09/17 13:15 11/08/17 13:14 Ondansetron HCl (Zofran Inj) 4 mg Q6H PRN IV 10/09/17 13:15 11/08/17 13:14 Thiamine HCl (Vitamin B-1 Tab) 100 mg QAM PO 10/10/17 09:00 11/09/17 08:59 10/10/17 09:06 100 MG Folic Acid (Folvite Tab) 1 mg QAM PO 10/10/17 09:00 11/09/17 08:59 10/10/17 09:06 1 MG Aspirin (Ecotrin Tab) 81 mg QAM PO 10/10/17 14:00 11/09/17 13:59 10/10/17 14:46 81 MG Enoxaparin Sodium (Lovenox Inj) 40 mg DAILY SQ 10/10/17 14:00 11/09/17 13:59 10/10/17 14:47 40 MG Vital Signs: Date Time Temp Pulse Resp B/P (MAP) Pulse Ox O2 Delivery O2 Flow Rate FiO2 10/10/17 12:11 71 14 105/61 (76) 97 Room Air 10/10/17 12:00 Room Air 10/10/17 12:00 71 14 105/61 (76) 99 Room Air 10/10/17 11:00 69 14 122/65 (84) 99 Room Air 10/10/17 10:00 59 14 115/67 (83) 97 Room Air 10/10/17 10:00 59 14 115/67 (83) 97 Room Air 10/10/17 09:01 90 14 108/73 (85) 96 Room Air 10/10/17 08:00 63 18 137/68 (91) 97 Room Air 10/10/17 08:00 70 18 137/68 (91) 95 Room Air 10/10/17 08:00 Room Air 10/10/17 07:00 54 14 118/76 (90) 97 Room Air 10/10/17 07:00 54 14 118/76 (90) 97 Room Air 10/10/17 06:00 54 12 121/79 (93) 97 Room Air 10/10/17 05:00 61 19 130/83 (99) 95 Room Air 10/10/17 04:00 36.6 10/10/17 04:00 Room Air 10/10/17 04:00 55 19 131/77 (95) 92 Room Air 10/10/17 03:00 56 23 118/63 (81) 94 Room Air 10/10/17 02:00 57 15 118/70 (86) 96 Room Air 10/10/17 01:00 59 17 146/81 (102) 91 Room Air 10/10/17 00:00 Room Air 10/10/17 00:00 36.6 67 15 123/78 (93) 96 Room Air 10/09/17 23:00 58 14 171/84 (113) 100 Room Air 10/09/17 22:00 60 18 139/76 (97) 99 Room Air 10/09/17 21:00 62 18 133/74 (93) 99 Room Air 10/09/17 21:00 66 18 133/74 (93) 98 Room Air 10/09/17 20:28 65 18 127/73 (91) 95 10/09/17 20:00 99 Room Air 10/09/17 19:58 63 18 122/69 (86) 95 Room Air 10/09/17 19:45 65 12 122/69 (77) 95 10/09/17 19:30 67 15 112/76 (94) 93 10/09/17 19:30 69 18 112/76 (88) 93 Room Air 10/09/17 19:28 63 20 122/69 (86) 95 Room Air 10/09/17 19:15 68 13 115/66 (78) 96 10/09/17 19:00 67 18 117/58 (77) 96 Room Air 10/09/17 19:00 68 13 117/58 (65) 96 10/09/17 18:45 72 13 121/65 (76) 95 10/09/17 18:30 70 18 119/65 (83) 94 Room Air 10/09/17 18:30 73 13 119/65 (75) 95 10/09/17 18:15 69 15 109/59 (66) 96 10/09/17 18:00 72 18 120/61 (80) 96 Room Air 10/09/17 18:00 74 16 120/61 (78) 95 10/09/17 17:45 70 20 118/70 (81) 95 10/09/17 17:30 74 15 140/83 (116) 95 10/09/17 17:30 78 18 140/83 (102) 96 Room Air 10/09/17 17:19 86 26 148/94 (133) 96 10/09/17 17:00 89 18 148/94 (112) 96 Room Air 10/09/17 16:30 69 18 137/70 (92) 97 Room Air Laboratory Results: Last 24 Hours Test 10/10/17 05:28 White Blood Count 5.66 K/uL Red Blood Count 4.60 M/uL Hemoglobin 14.8 g/dL Hematocrit 43.2 % Mean Corpuscular Volume 93.9 fL Mean Corpuscular Hemoglobin 32.2 pg Mean Corpuscular Hemoglobin Concent 34.3 g/dl Platelet Count 180 K/uL Mean Platelet Volume 9.3 fL Neutrophils (%) (Auto) 61.5 % Lymphocytes (%) (Auto) 24.9 % Monocytes (%) (Auto) 11.8 % Eosinophils (%) (Auto) 1.4 % Basophils (%) (Auto) 0.2 % Neutrophils # (Auto) 3.48 K/uL Lymphocytes # (Auto) 1.41 K/uL Monocytes # (Auto) 0.67 K/uL Eosinophils # (Auto) 0.08 K/uL Basophils # (Auto) 0.01 K/uL RDW Standard Deviation 48.5 fL RDW Coefficient of Variation 14.0 % Immature Granulocyte % (Auto) 0.2 % Immature Granulocyte # (Auto) 0.01 K/uL Sodium Level 137 mmol/L Potassium Level 3.8 mmol/L Chloride Level 103 mmol/L Carbon Dioxide Level 29 mmol/L Anion Gap 5.0 mmol/L Blood Urea Nitrogen 17 mg/dl Creatinine 0.84 mg/dl Est Creatinine Clear Calc Drug Dose 71.6 ml/min Estimated GFR () 105.0 Estimated GFR (Non- 90.6 BUN/Creatinine Ratio 20.1 Random Glucose 90 mg/dl Calcium Level 8.8 mg/dl Phosphorus Level 3.1 mg/dl Magnesium Level 2.2 mg/dl Total Creatine Kinase 115 U/L Troponin I < 0.015 ng/ml Triglycerides Level 88 mg/dl Cholesterol Level 201 mg/dl HDL Cholesterol 66 mg/dl LDL Cholesterol, Calculated 117 mg/dl VLDL Cholesterol, Calculated 18 mg/dl Cholesterol/HDL Ratio 3.0
--- NOTE | 2017-10-10 17:10 | Progress Note ---
Subjective Date of Service: Oct 10, 2017. Subjective Pt evaluation today including: conversation w/ patient, conversation w/ family , physical exam, chart review, lab review, review of studies, review of inpatient medication list feeling great no complaints no problems, L eye vision resolved as well updated on findings thus far and discussed treatment discussed critical role in tobacco cessation Problem List Medical Problems: (1) CVA (cerebral vascular accident) Status: Acute (2) Ischemic chest pain Status: Acute (3) Palpitations Status: Acute (4) Received intravenous tissue plasminogen activator (t-PA) in emergency department Status: Acute (5) Strain of lumbar region Status: Acute (6) Stroke Status: Acute Review of Systems all other ROS otherwise negative except for as above Objective Vital Signs Date Time Temp Pulse Resp B/P (MAP) Pulse Ox O2 Delivery O2 Flow Rate FiO2 10/10/17 12:11 71 14 105/61 (76) 97 Room Air 10/10/17 12:00 Room Air 10/10/17 12:00 71 14 105/61 (76) 99 Room Air 10/10/17 11:00 69 14 122/65 (84) 99 Room Air 10/10/17 10:00 59 14 115/67 (83) 97 Room Air 10/10/17 10:00 59 14 115/67 (83) 97 Room Air 10/10/17 09:01 90 14 108/73 (85) 96 Room Air 10/10/17 08:00 63 18 137/68 (91) 97 Room Air 10/10/17 08:00 70 18 137/68 (91) 95 Room Air 10/10/17 08:00 Room Air 10/10/17 07:00 54 14 118/76 (90) 97 Room Air 10/10/17 07:00 54 14 118/76 (90) 97 Room Air 10/10/17 06:00 54 12 121/79 (93) 97 Room Air 10/10/17 05:00 61 19 130/83 (99) 95 Room Air 10/10/17 04:00 36.6 10/10/17 04:00 Room Air 10/10/17 04:00 55 19 131/77 (95) 92 Room Air 10/10/17 03:00 56 23 118/63 (81) 94 Room Air 10/10/17 02:00 57 15 118/70 (86) 96 Room Air 10/10/17 01:00 59 17 146/81 (102) 91 Room Air 10/10/17 00:00 Room Air 10/10/17 00:00 36.6 67 15 123/78 (93) 96 Room Air 10/09/17 23:00 58 14 171/84 (113) 100 Room Air 10/09/17 22:00 60 18 139/76 (97) 99 Room Air 10/09/17 21:00 62 18 133/74 (93) 99 Room Air 10/09/17 21:00 66 18 133/74 (93) 98 Room Air 10/09/17 20:28 65 18 127/73 (91) 95 10/09/17 20:00 99 Room Air 10/09/17 19:58 63 18 122/69 (86) 95 Room Air 10/09/17 19:45 65 12 122/69 (77) 95 10/09/17 19:30 67 15 112/76 (94) 93 10/09/17 19:30 69 18 112/76 (88) 93 Room Air 10/09/17 19:28 63 20 122/69 (86) 95 Room Air 10/09/17 19:15 68 13 115/66 (78) 96 10/09/17 19:00 67 18 117/58 (77) 96 Room Air 10/09/17 19:00 68 13 117/58 (65) 96 10/09/17 18:45 72 13 121/65 (76) 95 10/09/17 18:30 70 18 119/65 (83) 94 Room Air 10/09/17 18:30 73 13 119/65 (75) 95 10/09/17 18:15 69 15 109/59 (66) 96 10/09/17 18:00 72 18 120/61 (80) 96 Room Air 10/09/17 18:00 74 16 120/61 (78) 95 10/09/17 17:45 70 20 118/70 (81) 95 10/09/17 17:30 74 15 140/83 (116) 95 10/09/17 17:30 78 18 140/83 (102) 96 Room Air 10/09/17 17:19 86 26 148/94 (133) 96 Physical Exam General Appearance: no apparent distress Eyes: EOMI ENT: hearing grossly normal Neck: trachea midline Respiratory/Chest: no respiratory distress, no accessory muscle use 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08 K/uL Basophils # (Auto) 0.01 K/uL RDW Standard Deviation 48.5 fL RDW Coefficient of Variation 14.0 % Immature Granulocyte % (Auto) 0.2 % Immature Granulocyte # (Auto) 0.01 K/uL Sodium Level 137 mmol/L Potassium Level 3.8 mmol/L Chloride Level 103 mmol/L Carbon Dioxide Level 29 mmol/L Anion Gap 5.0 mmol/L Blood Urea Nitrogen 17 mg/dl Creatinine 0.84 mg/dl Est Creatinine Clear Calc Drug Dose 71.6 ml/min Estimated GFR () 105.0 Estimated GFR (Non- 90.6 BUN/Creatinine Ratio 20.1 Random Glucose 90 mg/dl Calcium Level 8.8 mg/dl Phosphorus Level 3.1 mg/dl Magnesium Level 2.2 mg/dl Total Creatine Kinase 115 U/L Troponin I < 0.015 ng/ml Triglycerides Level 88 mg/dl Cholesterol Level 201 mg/dl HDL Cholesterol 66 mg/dl LDL Cholesterol, Calculated 117 mg/dl VLDL Cholesterol, Calculated 18 mg/dl Cholesterol/HDL Ratio 3.0 Assessment and Plan 1. Stroke. -post thrombolytics -clinically totally resolved -risks - male, age, tobacco, lipids -after imaging if no bleed asa -atorvastatin 40mg for both plaque stabilization and lipids to [place] goal 2. Chest pain. -med management as above would cover for CAD if occultly present -stress testing as outpt in near future -event monitor to r/o occult afib 3. Pulmonary nodule, outpatient followup. 4. Tobacco abuse. Counseled on cessation again, he appears motivated. 5. Questionable emphysema. Outpatient followup. 6. Deep venous thrombosis prophylaxis. start lovenox if no bleeding on f/u imaging once follow up imaging obtained if no bleed, safe/stable for transfer to telemetry
[2017-10-11] VITALS (8 sets, daily range): BP systolic 118–150; BP diastolic 66–82; PULSE 55–60; TEMP 36.5–36.6; O2SAT 93–98
[2017-10-11 08:09] LABS: CALCIUM 8.7 mg/dl (8.5-10.1); CREATININE 0.8 mg/dl (0.60-1.40)
[2017-10-11] MEDS: ENOXAPARIN 40 MG/0.4 ML SYR SQ SCH (08:42)
[2017-10-11] MEDS: ASPIRIN 81 MG ECTAB PO SCH (08:42)
[2017-10-11] MEDS: ATORVASTATIN 40 MG TAB PO SCH (08:42)
[2017-10-11] MEDS: THIAMINE HCL 100 MG TAB PO SCH (08:42)
[2017-10-11] MEDS ORDERED: LPT40 PO (12:42)
[2017-10-11] MEDS ORDERED: ASPEC81 PO (12:42)
[2017-10-11] MEDS ORDERED: THM100 PO (12:42)
[2017-10-11] MEDS ORDERED: FLV1 PO (12:42)
--- NOTE | 2017-10-11 12:59 | Discharge Instructions ---
Discharge Instructions Date of Service Oct 11, 2017. Admission Reason for Admission: Stroke Discharge Discharge Diagnosis / Problem: stroke Discharge Goals Goal(s): Diagnostic testing, Therapeutic intervention Activity Recommendations Activity Limitations: resume your previous activity . Instructions / Follow-Up Instructions / Follow-Up stroke: -the main factor causing your stroke was the tobacco - your cholesterols need treated (see below) but in large part this is in the context of having had the stroke and needing to meet more stringent standards to keep it from happening again -fortunately you recovered perfectly and the MRI of your brain actually didn't show any /damaged brain tissue - which is a rarity (it just showed little pinprick areas which are common in people in their 60's who either have high blood pressure or use tobacco - given that your blood pressures have looked good , we'd relate this more to the tobacco than anything) -the treatment at this point is "secondary prevention" (making sure it doesn't happen again) medications: aspirin 81mg daily (to act as an "antiplatelet" blood thinner - which helps protect you from clotting in blood vessels) atorvastatin 40mg daily (to lower your cholesterols to goal so that you don't clog arteries further, and more importantly, to stabilize the plaque that is in your arteries, because splitting open/rupture of the plaques that are there is the main "final pathway" that leads to strokes - and medications like atorvastatin work quite nicely to not only lower cholesterols, but also act like a "blood vessel anti-inflammatory" and reduce the changes of a plaque rupture and future stroke. Dr Hoffman will need to check follow up labs in about three months, then periodically thereafter, in regards to the atorvastatin. lifestyle change: first and foremost, quitting tobacco entirely is the main change you'll need to make. eating a healthy diet (predominantly fruits and vegetables, as well as lean sources of protein, and low in bad (saturated) fats, and low in bad ( sugary, starchy) carbs makes a huge impact in reducing future stroke risk. in addition, getting in about 30 minutes a day of exercise is hugely protective as well further evaluation and follow up: carotid arteries - your carotid arteries do show blockages on both sides - 40% on the left and 50% on the right. a blockage of 50% or more on the same side as a stroke is enough to warrant vascular surgery evaluation for possibly cleaning it out. since your stroke was left sided symptoms, and the right side of the brain controls the left side of the body, the right sided carotid artery blockage was just tight enough to be a possible "smoking gun" - we're working on getting you set up with Dr Anguiano of [facility] Vascular surgery in the next week or so - expect a phone call from his office. the aspirin and atorvastatin, as well as the lifestyle measures outlined above, are the mainstay of treatment in of keeping the carotid arteries from blocking up more heart rhythm monitoring - Dr Davis and Dr So felt strongly that we set you up for an event monitor - a several week cardiac rhythm monitor to make sure that the palpitations you felt were not an irregular rhythm called atrial fibrillation, that in itself can cause strokes. the office will be calling to get this set in motion for you chest pain -most likely the pain was more of a stress response to what was going on with the stroke, but since the same things that clog arteries in the brain clog arteries in the heart, we definitely don't want to assume that. in order to better lay to rest any appearance of blockages of blood vessels to your heart, they will be calling to set you up for a stress echocardiogram (a stress test where they watch your EKG and heart muscle to look for any evidence of poor blood flow when you're exerting more heavily) - expect a phone call next week to set that up as well. between now and when you have the stress test done, if you were to feel that chest pressure you felt the other day - stop what you're doing and rest. if the pressure doesn't go away IMMEDIATELY (within a minute or so) of rest, we'd want you back to the hospital [facility]. vitamins -anyone who drinks more than a beer or two a day on a regular basis is at risk for vitamin and nutrient deficiencies - particularly in the B vitamin family. supplementing thiamine (B1) and folic acid (a cousin to the B vitamin family) works to protect you from developing those deficiencies Risk Factors for Stroke: You can reduce your chances of stroke by working with your medical provider to adopt a healthy lifestyle. Some specific ways to lower your chance of stroke are: * If you are a smoker, now is the time to stop smoking cigarettes * If you are diabetic, improve the control of your blood sugars * Avoid excessive amounts of alcohol * Control high blood pressure * Lose weight if you are overweight * Be sure to lead an active lifestyle * Eat a healthy diet low in salt, cholesterol and fat You should know about other risk factors for stroke that you are unable to control. These include: * Age 55 years or older * Male gender * Certain racial groups: , or / * Family History of Stroke, Mini stroke or Heart Attack * Sickle Cell Disease Follow Up: It is important for you to keep your follow up appointments with your medical provider. Current Hospital Diet Patient's current hospital diet: AHA Diet (Heart Healthy) Discharge Diet Recommended Diet: AHA Diet (Heart Healthy) Pending Studies Studies pending at discharge: no Laboratory Results Hemoglobin A1c Test 10/09/17 10:44 Range/Units Estimated Average Glucose 114 mg/dl Hemoglobin A1c 5.6 4.5-5.6 % Lipid Panel Test 10/10/17 05:28 Range/Units Triglycerides Level 88 0-150 mg/dl Cholesterol Level 201 H 0-200 mg/dl HDL Cholesterol 66 mg/dl Cholesterol/HDL Ratio 3.0 LDL Cholesterol, Calculated 117 mg/dl Medical Emergencies . Who to Call and When: Medical Emergencies: Call 911 immediately if you experience any of the following warning signs and symptoms of Stroke: * Sudden numbness or weakness of the face, arm or leg, especially on one side of the body * Sudden confusion, trouble speaking or understanding * Sudden trouble seeing in one or both eyes * Sudden trouble walking, dizziness, loss of balance or coordination * Sudden severe headache with no cause Do not delay calling 911 if you experience any warning signs or symptoms of a stroke. Delay in seeking medical attention may affect what treatments can be given to you. . Non-Emergent Contact Non-Emergency issues call your: Primary Care Provider (expect a call from Dr Hoffman's office by mid next week - if you haven't heard, call [phone] to check on your status, then follow up with Dr Hoffman more regularly thereafter) . . "Provider Documentation" section prepared by George Farmer. . Stroke Core Measures Reason no t-PA for Stroke: Treatment provided - N/A Reason no antithrom by day 2: Treatment provided - N/A Reason no antithrom at D/C: Treatment provided - N/A Reason no statin at D/C: Treatment provided - N/A Reason no anticoag w/a fib: Treatment not indicated VTE Core Measure Inpt VTE Proph given/why not?: Enoxaparin (Lovenox)SQ
--- NOTE | 2017-10-11 14:05 | Pharmacy Progress Note ---
Pharmacist Stroke Counseling Date of Service Oct 11, 2017. Scope Pharmacy has been consulted to provide medication discharge counseling for this patient admitted with ischemic stroke/hemorrhagic stroke/ transient ischemic attack as per the Pharmacist Discharge Counseling for Stroke Patients Protocol. Medications on Discharge New Medications: Aspirin (Aspirin EC Low Dose) 81 Mg Ectab 81 MG PO QAM, #30 Atorvastatin (Lipitor) 40 Mg Tab 40 MG PO QAM, #30 TAB Folic Acid (Folic Acid) 1 Mg Tab 1 MG PO QAM, #30 TAB Thiamine HCl (Vitamin B-1) 100 Mg Tab 100 MG PO QAM, #30 TAB Continued Medications: Acetaminophen (Tylenol Arthritis Ext Rel) 650 Mg Cplt 325 MG PO UD Action The above medications, specifically ones for stroke treatment/prophylaxis, have been reviewed in detail with the patient and/or patient warehouse representative(s) prior to discharge. This includes indication, common adverse reactions, drug interactions, and medication administration. Medication counseling has been employed using the teach-back method to ensure understanding. Outcome The patient and/or patient warehouse representative(s) have demonstrated understanding of the medications. Please note, they are aware that the pharmacist will call them within 72 hours post-discharge to confirm that the appropriate medications are being taken and answer any further medication related questions the patient might have at that time. Contact information Individual to be contacted: Deanna, patient's - can speak to either her or Robin Phone number: [phone] Best time to call: anytime Additional comments: * I spoke with the patient and his today to provide the discharge counseling * Pillbox was provided - patient did not have one so was appreciative and states he plans to use it * I reviewed his new medications, the ones for stroke prevention specifically * He will either have the aspirin filled as a prescription or pick it up OTC * Of note, he reports he does not take the Tylenol Arthritis that was on his home med list. He took this maybe only once or twice and didn't know how it was on his list. I told him we could take it off. * Patient was very receptive to counseling and plans to be compliant with his new medications. Reports he plans to take them in the morning "because he always has his cup of coffee and some food". Thank you for allowing pharmacy to be involved in the care of this patient. Please call [phone] or [phone] with any additional questions
--- NOTE | 2017-10-11 20:52 | Discharge Summary ---
Discharge Summary Date of Service Oct 11, 2017. Discharge Summary Admission Date: Oct 09, 2017 at 13:35 Discharge Date: Oct 11, 2017 Discharge Disposition: Home Principal Diagnosis: stroke, totally resolved after tPA Problems/Secondary Diagnoses: chest pain - to be worked up as outpt w stress echo to r/o ischemia, and event monitor to r/o occult afib carotid artery disease Immunizations: Have You Had Influenza Vaccine: Yes Influenza Vaccine Date: Jul 18, 2010 History of Tetanus Vaccine?: No History of Pneumococcal: No History of Hepatitis B Vaccine: No Procedures: CT head no bleed no stroke CT angio head no significant abnormalities CT angio neck 50% R and 40% L internal carotid stenosis, small vertebral artery aneurysm echo type 1 diastolic dysfunction no other major abnormalities CT angio chest no dissection, 6mm R pulmonary nodule, emphysematous changes MRI after tPA given - small vessel type changes but no areas of stroke or bleed , no masses Last Resulted CBC 10/10/17 05:28 Red Blood Count 4.60, Mean Corpuscular Volume 93.9, Mean Corpuscular Hemoglobin 32.2, Mean Corpuscular Hemoglobin Concent 34.3, Mean Platelet Volume 9.3, Neutrophils (%) (Auto) 61.5, Lymphocytes (%) (Auto) 24.9, Monocytes (%) (Auto) 11.8, Eosinophils (%) (Auto) 1.4, Basophils (%) (Auto) 0.2, Neutrophils # (Auto ) 3.48, Lymphocytes # (Auto) 1.41, Monocytes # (Auto) 0.67, Eosinophils # (Auto ) 0.08, Basophils # (Auto) 0.01 Last Resulted BMP 10/11/17 07:19 Hemoglobin A1c Test 10/09/17 10:44 Range/Units Estimated Average Glucose 114 mg/dl Hemoglobin A1c 5.6 4.5-5.6 % Lipid Panel Test 10/10/17 05:28 Range/Units Triglycerides Level 88 0-150 mg/dl Cholesterol Level 201 H 0-200 mg/dl HDL Cholesterol 66 mg/dl Cholesterol/HDL Ratio 3.0 LDL Cholesterol, Calculated 117 mg/dl Consultations: neurology (stroke) darklight inspector (mandatory consult related to ICU admission) Medication Reconciliation New Medications: Aspirin (Aspirin EC Low Dose) 81 Mg Ectab 81 MG PO QAM, #30 Atorvastatin (Lipitor) 40 Mg Tab 40 MG PO QAM, #30 TAB Folic Acid (Folic Acid) 1 Mg Tab 1 MG PO QAM, #30 TAB Thiamine HCl (Vitamin B-1) 100 Mg Tab 100 MG PO QAM, #30 TAB Discharge Exam Physical Exam: General Appearance: no apparent distress Eyes: EOMI ENT: hearing grossly normal Neck: trachea midline Respiratory/Chest: no respiratory distress, no accessory muscle use Extremities: normal inspection 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 Stroke. -post thrombolytics -clinically totally resolved -risks - male, age, tobacco, lipids -after imaging if no bleed asa -atorvastatin 40mg for both plaque stabilization and lipids to [place] goal -stable for home -outpt PCP f/u as well as vascular eval given that carotid stenosis just meets severity for possible significance as related to CVA 2. Chest pain. -med management as above would cover for CAD if occultly present -stress testing as outpt in near future -event monitor to r/o occult afib 3. Pulmonary nodule, outpatient followup scanning in several months 4. Tobacco abuse. Counseled on cessation again, he appears motivated. 5. Questionable emphysema. Outpatient followup. 6. Deep venous thrombosis prophylaxis. lovenox Total Time Spent: Greater than 30 minutes This includes examination of the patient, discharge planning, medication reconciliation, and communication with other providers. Discharge Instructions Please refer to the electronic Patient Visit Report (Discharge Instructions) for additional information.
--- NOTE | 2017-10-13 11:44 | Pharmacy Progress Note ---
Pharmacist Post D/C Phone Note Date of phone call: Oct 13, 2017. Individual with whom pharmacist spoke to: Deanna (patient's ) The following questions were reviewed during the phone call with responses listed below each: Can you tell me the medications that you are currently taking as well as when and how you take each medication? - She stated that he takes his aspirin and lipitor every morning. When have you missed any doses of your medications? - Deanna confirmed that he has not missed any doses. What side effects are you having from your medications? - The patient is not experiencing any side effects. What questions do you have about your medications? - Deanna did not have any questions. What problems are you having obtaining your medications? - No problems obtaining medication. When is your next appointment with your primary care doctor? - Deanna said that the doctor's office is closed today and will call tomorrow to schedule an appointment. Additional comments: * The following phone number was provided if he patient or his had any questions or concerns regarding his medication: [phone] As per the Pharmacist Discharge Counseling for Stroke Patients Protocol, this phone call has been completed within 72 hours of discharge. Thank you for allowing us to be involved in the care of this patient.
== END 2017-10-11 14:11 | disposition home or self-care (01) | DRG 62 ==
LOC: EDBD 11:11 → C.EDC 11:12 → CANBEDREQ 13:25 → C.MSICU 13:35 → ENRESERV 13:58 → C.2T 10-10 15:03
PROVIDERS: ADMIT Family Medicine; ATTEND Family Medicine
DX: I63.9 Cerebral infarction, unspecified (principal); N17.9 Acute kidney failure, unspecified; R29.704 NIHSS score 4; R07.9 Chest pain, unspecified; F17.210 Nicotine dependence, cigarettes, uncomplicated; F17.220 Nicotine dependence, chewing tobacco, uncomplicated; J43.9 Emphysema, unspecified; R91.1 Solitary pulmonary nodule; Z72.89 Other problems related to lifestyle; Z82.49 Family history of ischemic heart disease and other diseases of the circulatory system; Z83.3 Family history of diabetes mellitus

== ENCOUNTER → 2017-10-15 | Outpatient (CLI) | payer OTHER ==
[~2017-10-15] MED LIST changes: -ACET1TAB84 PO; +ASPEC81 PO; +FLV1 PO; +LPT40 PO; +THM100 PO
--- NOTE | 2017-10-15 18:00 | EXERCISE STRESS ECHO ---
*NOTICE TO RECEIVING [employer] This information is strictly Confidential and protected under [place] law. [place] law prohibits you from making any further disclosure of this information unless further disclosure is expressly permitted by the written consent of the person to whom it pertains or is authorized by law. A general authorization for the release of medical or other information is not sufficient for this purpose. Hospital accepts no responsibility if the information is made available to any other person, INCLUDING THE PATIENT. Interpretation Summary * Name: KIMMY FERRELL Study Date: 10/15/2017 09:05 AM BP: 149/89 mmHg * Patient Location: [facility]\S\E108\S\1 HR: 54 * : 1950 (M/d/yyyy) Gender: Male Height: 70 in * Age: 67 yrs Ethnicity: [place] Weight: 145 lb * Ordering Physician: Paramjit Kamara * Referring Physician: Paramjit Kamara * Performed By: Yari Spangler RCS * * Reason For Study: Chest Pain * BSA: 1.8 m2 * -- Conclusions -- * 1. Negative exercise stress echo for ischemia at 100% MPHR. * 2. Negative stress ECG for ischemia. * 3. Above average functional capacity. Exercised 8:59 min, acheiving 10.1 METS. * 4. No exercise induced chest pain. Normal hemodynamic response to exercise. * 5. Normal resting LV size and function. EF 55-60%. See prior echo report from 10/09/2017 for full details regarding resting function. Procedure Details * ECHOEX, CPT #76221 Left Ventricular Findings with Stress * This was essentially a normal study. Left Ventricle * The left ventricle is grossly normal size. * There is normal left ventricular wall thickness. * Ejection Fraction = 55-60%. * Resting wall motion: Normal. Stress wall motion: Appropriate increase in Left ventricular systolic function and decrease in cavity size. No stress induced segmental wall motion abnormalities. Mitral Valve * The mitral valve is grossly normal. * There is no mitral valve stenosis. Great Vessels * The aortic root and proximal ascending aorta are normal sized. Pericardium * There is no pericardial effusion. Stress Parameters * Sinus bradycardia, ventricular rate 54, tall, peaked T-waves inferior and laterally. * Stress ECG: No ST changes. No arrhythmias. * No arrhythmia were noted with stress. * Rest heart rate was '54' BPM. * Rest blood pressure was '149/89' * Maximum heart rate achieved was 153 bpm. * Maximum heart rate was 100 % of maximum age-predicted heart rate. * Maximum blood pressure was '200/74' * Total exercise time was '8:59' * Maximum exercise MET level achieved was '10.1' METS * Maximum treadmill speed was '3.4' miles per hour. * Maximum treadmill elevation was '14'% grade. * Exercise was terminated due to 'achieving target heart rate' Left Ventricular Findings with Stress * The study was technically excellent with all images being of optimal quality.
== END | disposition home or self-care (01) ==
LOC: C.CPL 08:57
PROVIDERS: ATTEND Internal Medicine
DX: R07.9 Chest pain, unspecified (principal)

== ENCOUNTER 2019-07-09 08:16 | Inpatient (IN) ==
[2019-07-09] MEDS ORDERED: OPTIRAY 320 125ml IV PRN (08:24)
--- NOTE | 2019-07-09 08:27 | CT Scan Report ---
CT SCAN OF THE BRAIN WITHOUT IV CONTRAST CLINICAL HISTORY: Strokelike symptoms. Weakness. COMPARISON STUDY: CT of the brain dated 10/09/2017. TECHNIQUE: Unenhanced axial CT scan of the brain is performed from the vertex to the skull base. A do se lowering technique was utilized adhering to the principles of ALARA. CT DOSE: 537.48 mGy.cm FINDINGS: Brain parenchyma: There is mild age-related involutional change. There is no hemorrhage, mass effect, or evidence of acute territorial ischemia by CT criteria. Flores-white matter differentiation is prese rved. No extra-axial fluid collection is seen. Ventricles, sulci, cisterns: Prominent secondary to involutional change. Intracranial vasculature: There is atherosclerotic calcification of the cavernous carotid arteries. Calvarium: Unremarkable. Sinuses and mastoids: Mild mucosal thickening is noted in the left sphenoid sinus. The remaining visu alized paranasal sinuses are clear. The mastoid air cells are well pneumatized. Orbits: The bony orbits are grossly intact. IMPRESSION: There is no hemorrhage, mass effect, or evidence of acute territorial ischemia by CT ken pollard. Electronically signed by: Fidencio Peng M.D. 07/09/2019 8:25 AM
--- NOTE | 2019-07-09 08:36 | CT Scan Report ---
CT angio head w con CLINICAL HISTORY: 69 years-old Male presenting with cva. TECHNIQUE: Multidetector CT angiography of the head was performed after the administration of intrave nous contrast. 3-D volumetric and/or maximum intensity projection (MIP) images were subsequently gisele nstructed for review. IV contrast: 120 mL of Optiray 320. One or more dose lowering techniques were u sed consistent with the principles of ALARA (as low as reasonably achievable), including automatic ex posure control, mA or kV adjustment to individual patient size, and/or use of iterative reconstructio n. COMPARISON: 10/09/2017. CT DOSE (mGy.cm): The estimated cumulative dose is 616.48 mGy.cm. FINDINGS: Electrical Transmission Engineer topogram: Anterior fusion hardware in the cervical spine. Anterior circulation: Intracranial portions of the internal carotid arteries patent to the level of t he termini. Anterior cerebral arteries patent. Middle cerebral arteries patent. Anterior communicatin g artery patent. Posterior circulation: Codominant vertebral arteries. Intradural portions of the vertebral arteries p atent. Posterior inferior cerebellar arteries patent. Basilar artery patent. Anterior inferior cerebe llar arteries poorly visualized. Superior cerebellar arteries patent. Posterior cerebral arteries pat ent. Posterior communicating arteries patent. Dural venous sinuses: Patent. Other: Allowing for the phase of contrast, brain parenchyma within normal limits. Calvarium intact. IMPRESSION: 1. No evidence of aneurysm, focal vessel occlusion, or significant stenosis of the intracranial nuvia earl. Electronically signed by: Fransisco Cortez M.D. 07/09/2019 8:35 AM
--- NOTE | 2019-07-09 08:41 | Emergency Department Note ---
Entered by Foreign Rodriguez acting as a scribe for Bj Marquez DO History of Present Illness General Chief complaint: Stroke Alert Source: patient Mode of arrival: EMS Limitations: no limitations History of Present Illness Onset (ago): hour(s) 4 Location: upper extremity (left) and lower extremity (left) Severity: similar to prior episodes Pain Consistency: + constant Quality: + aching Associated symptoms: + headaches, + weakness and + other ("fuzzy vision") The patient is a 69 year old male who presents to the Emergency Room with complaints of an episode of constant upper left and lower left sided weakness. The patient notes that four hours prior to arrival he woke up with no sensation in his left arm and left leg. The patient denies any worsening of his symptoms. The patient reports that he was unable to stand on his own. The patient ray cribes the sensation in his left arm as achy pain. The patient reports that he has a headache with fuzzy vision in his left eye. He notes that he last felt normal 12 hours ago. The patient states that he was unable to stand on his own. The patient reports that he has a history of stoke, and was last seen here at [facility] October [id number]. The patient notes that the symptoms are similar to his previous stroke. He reports that he takes baby Aspirin, and denies the use of any blood thinner. The patient states that he is an occasional drinker, but denies the use of tobacco or drugs. Home Medications Home Medications Medication Instructions Recorded Confirmed Type aspirin [Aspirin Low Dose] 81 mg PO DAILY 07/23/18 07/23/18 History atorvastatin [Lipitor] 10 mg PO DAILY 07/23/18 07/23/18 History coenzyme Q10 [CoQ-10] 100 mg PO DAILY 07/23/18 07/23/18 History folic acid 1 mg PO DAILY 07/23/18 07/23/18 History thiamine HCl (vitamin B1) 100 mg PO DAILY 07/23/18 07/23/18 History Allergies Allergy/AdvReac Type Severity Reaction Status Date / Time Penicillins Allergy Unknown Hives Verified 07/23/18 13:19 ampicillin AdvReac Unknown Hives Unverified 07/23/18 13:19 Past Med/Surg History Medical History History of stroke (Resolved) Family History Other No pertinent family history Social History Preferred Language: Tunisian Communication Ability: Effective marital status: Current Living Situation: Family current occupational status: employed Feels Safe at Home: Yes Smoking Status: Never smoker Review of Systems See HPI for pertinent positives & negatives. and A total of 10 systems reviewed and were otherwise negative Physical Exam Vital Signs Vital Signs - 24 hr 07/09/19 08:25 Temperature 36.9 C Temperature Source Oral Sepsis Recent Fever Within 48 Hours No Sepsis New/Unexplained Change in Mental Status No Sepsis Action Taken by Nursing No Action Required Pulse Rate 63 Respiratory Rate 18 Blood Pressure 178/106 H Blood Pressure Mean 130 Pulse Oximetry 99 Oxygen Delivery Method Room Air CONSTITUTIONAL/VITAL SIGNS: Reviewed / noted above. GENERAL: Non-toxic in appearance. INTEGUMENTARY: Warm, dry, and [place]. HEAD: Normocephalic. EYES: without scleral icterus or trauma. ENT/OROPHARYNX: clear and moist. LYMPHADENOPATHY/NECK: Is supple without lymphadenopathy or meningismus. RESPIRATORY: Lungs clear and equal. CARDIOVASCULAR: Regular rate and rhythm. GI/ABDOMEN: Soft and nontender. No organomegaly or pulsatile mass. No rebound or guarding. Normal bowel sounds. EXTREMITIES: Mild weakness in left arm. Moderate weakness in the left leg, especially at the level of the hip. Subjective decreased sensation on the left arm and leg. BACK: No CVA tenderness. NEUROLOGICAL: Intact without focal deficits. PSYCHIATRIC: normal affect. MUSCULOSKELETAL: Normally developed with good muscle tone. Course 0825: The patient was evaluated in room B01. A complete history and physical exam was performed. 0836: Discussed the patient's case with Dr. Miramontes, Neurolog[place] [facility] [place]858:Discussed the patient's case with Dr. Miramontes, Neurologist [facility] [place] Add Plavix to regimen. 0904: Discussed the patient's case [facility], Hospitalist. The patient will be evaluated for further treatment and disposition. Administered Medications Ioversol (Optiray 320 125ml) 120 ml IV ONCE PRN PRN Reason: Interaction Checking Stop: 07/13/19 08:23 Last Admin: 07/09/19 08:24 Dose: 120 ml Documented by: [id number] Discontinued Medications Clopidogrel Bisulfate (Plavix) 75 mg PO NOW ONE Stop: 07/09/19 08:57 Last Admin: 07/09/19 09:03 Dose: 75 mg Documented by: [id number] Medical Decision Making Differential Diagnosis Differential includes acute coronary syndrome, myocardial infarction, CVA, TIA, anemia, infection, pneumonia, UTI, pyelonephritis, poor nutrition, dehydration, electrolyte disturbance,hypoglycemia. Medical Records Attestation: I reviewed the patient's medical records. Home Medications Current Medication List: was personally reviewed by me Laboratory Data Attestation: I reviewed the patient's lab results. Result diagrams: 07/09/19 08:33 07/09/19 08:33 Lab Results 07/09/19 07/09/19 07/09/19 Range/Units 08:33 08:33 08:33 WBC 3.64 L (4.8-10.8) K/uL RBC 3.94 L (4.7-6.1) M/uL Hgb 12.8 L (14.0-18.0) g/dL Hct 37.9 L (42-52) % MCV 96.2 (80-100) fL MCH 32.5 (25-34) pg MCHC 33.8 (32-36) g/dL RDW Std Deviation 49.2 H (36.4-46.3) fL RDW Coeff of Nicola 13.9 (11.5-14.5) % Plt Count 164 (130-400) K/uL MPV 9.5 (7.4-10.4) fL Immature Gran % (Auto) 0.0 % Neut % (Auto) 62.5 % Lymph % (Auto) 27.2 % [place] % (Auto) 9.3 % Eos % (Auto) 0.5 % Baso % (Auto) 0.5 % Immature Gran # (Auto) 0.00 (0.00-0.02) K/uL Neut # (Auto) 2.27 (1.4-6.5) K/uL Lymph # (Auto) 0.99 L (1.2-3.4) K/uL [place] # (Auto) 0.34 (0.11-0.59) K/uL Eos # (Auto) 0.02 (0-0.5) K/uL Baso # (Auto) 0.02 (0-0.2) K/uL PT 10.4 (9.0-12.0) Seconds INR 1.0 (0.9-1.1) APTT 26.2 (21.0-31.0) Seconds PTT Ratio 1.0 Sodium 136 (136-145) mmol/L Potassium 3.9 (3.5-5.1) mmol/L Chloride 105 (98-107) mmol/L Carbon Dioxide 25 (21-32) mmol/L Anion Gap 6.0 (3-11) BUN 8 (7-18) mg/dl Creatinine 0.86 (0.6-1.4) mg/dl Est Cr Clr Drug Dosing 75.1 ml/min Est GFR ( Amer) 102.5 Est GFR (Non-Af Amer) 88.5 BUN/Creatinine Ratio 9.1 L (10-20) Glucose 80 (70-99) mg/dl POC Glucose (70-99) Calcium 8.7 (8.5-10.1) mg/dl Magnesium 2.0 (1.8-2.4) mg/dl Total Bilirubin 0.5 (0.2-1) mg/dl AST 35 (15-37) U/L ALT 28 (12-78) U/L Alkaline Phosphatase 62 (45-117) U/L Troponin I < 0.015 (0-0.045) ng/ml Total Protein 6.4 (6.4-8.2) gm/dl Albumin 3.2 L (3.4-5.0) gm/dl Globulin 3.2 (2.5-4.0) gm/dl Albumin/Globulin Ratio 1.0 (0.9-2) 07/09/19 Range/Units 08:56 WBC (4.8-10.8) K/uL RBC (4.7-6.1) M/uL Hgb (14.0-18.0) g/dL Hct (42-52) % MCV (80-100) fL MCH (25-34) pg MCHC (32-36) g/dL RDW Std Deviation (36.4-46.3) fL RDW Coeff of Nicola (11.5-14.5) % Plt Count (130-400) K/uL MPV (7.4-10.4) fL Immature Gran % (Auto) % Neut % (Auto) % Lymph % (Auto) % [place] % (Auto) % Eos % (Auto) % Baso % (Auto) % Immature Gran # (Auto) (0.00-0.02) K/uL Neut # (Auto) (1.4-6.5) K/uL Lymph # (Auto) (1.2-3.4) K/uL [place] # (Auto) (0.11-0.59) K/uL Eos # (Auto) (0-0.5) K/uL Baso # (Auto) (0-0.2) K/uL PT (9.0-12.0) Seconds INR (0.9-1.1) APTT (21.0-31.0) Seconds PTT Ratio Sodium (136-145) mmol/L Potassium (3.5-5.1) mmol/L Chloride (98-107) mmol/L Carbon Dioxide (21-32) mmol/L Anion Gap (3-11) BUN (7-18) mg/dl Creatinine (0.6-1.4) mg/dl Est Cr Clr Drug Dosing ml/min Est GFR ( Amer) Est GFR (Non-Af Amer) BUN/Creatinine Ratio (10-20) Glucose (70-99) mg/dl POC Glucose 73 (70-99) Calcium (8.5-10.1) mg/dl Magnesium (1.8-2.4) mg/dl Total Bilirubin (0.2-1) mg/dl AST (15-37) U/L ALT (12-78) U/L Alkaline Phosphatase (45-117) U/L Troponin I (0-0.045) ng/ml Total Protein (6.4-8.2) gm/dl Albumin (3.4-5.0) gm/dl Globulin (2.5-4.0) gm/dl Albumin/Globulin Ratio (0.9-2) Imaging Data Radiologist's Impression: Radiology results as stated below per my review and the radiologist's interpretation: CT SCAN OF THE BRAIN WITHOUT IV CONTRAST CLINICAL HISTORY: Strokelike symptoms. Weakness. COMPARISON STUDY: CT of the brain dated 10/09/2017. TECHNIQUE: Unenhanced axial CT scan of the brain is performed from the vertex to the skull base. A dose lowering technique was utilized adhering to the principles of ALARA. CT DOSE: 537.48 mGy.cm FINDINGS: Brain parenchyma: There is mild age-related involutional change. There is no hemorrhage, mass effect, or evidence of acute territorial ischemia by CT criteria. Flores-white matter differentiation is preserved. No extra-axial fluid collection is seen. Ventricles, sulci, cisterns: Prominent secondary to involutional change. Intracranial vasculature: There is atherosclerotic calcification of the cavernous carotid arteries. Calvarium: Unremarkable. Sinuses and mastoids: Mild mucosal thickening is noted in the left sphenoid sinus. The remaining visualized paranasal sinuses are clear. The mastoid air cells are well pneumatized. Orbits: The bony orbits are grossly intact. IMPRESSION: There is no hemorrhage, mass effect, or evidence of acute territorial ischemia by CT criteria. Electronically signed by: Fidencio Peng M.D. 07/09/2019 8:[address] angio neck with con CLINICAL HISTORY: 69 years-old Male presenting with cva. TECHNIQUE: Multidetector CT angiography of the neck was performed after the administration of intravenous contrast. 3-D volumetric and/or maximum intensity projection (MIP) images were subsequently reconstructed for review. IV contrast: 120 mL of Optiray 320. One or more dose lowering techniques were used consistent with the principles of ALARA (as low as reasonably achievable), including auto matic exposure control, mA or kV adjustment to individual patient size, and/or use of iterative reconstruction. Stenosis measurements were based on NASCET-like criteria (distal lumen diameter as the denominator for stenosis measurement). COMPARISON: 10/09/2017. CT DOSE (mGy.cm): The estimated cumulative dose is 616.48. FINDINGS: Loaders topogram: Anterior cervical fusion hardware. Aortic arch: Atherosclerosis of the three-vessel aortic arch with patent origins of the left common and left subclavian arteries. Origin of the innominate is not fully included within the [id number]. Innominate artery: Patent. Right subclavian artery: Patent. Right common carotid artery: Patent. Right internal and external carotid arteries: Calcified and noncalcified atherosclerotic plaque at the carotid bifurcation with resultant 50-75% stenosis of the origin of the right internal carotid artery, slightly progressed from prior. Calcified atherosclerotic plaque at the origin of the external carotid a rtery without significant stenosis. Left common carotid artery: Patent. Left internal and external carotid arteries: Largely calcified atherosclerotic plaque at the carotid bifurcation with less than 50% stenosis of the origin of the left internal carotid artery. This is unchanged from prior. Widely patent origin and course of the external carotid artery. Left subclavian artery: Patent. Vertebral arteries: Codominant vertebral arteries. Redemonstration of the fusiform 5 mm aneurysm of the left vertebral artery at the level of C1-2. Other: Limited intracranial evaluation within normal limits. Soft tissues of the neck normal allowing for the phase of contrast. Anterior fusion hardware from C5 to C7. Degenerative changes of the spine. Lung apices clear. IMPRESSION: 1. Atherosclerosis with 50-75% stenosis of the origin of the right ICA, slightly progressed from prior. 2. Less than 50% stenosis of the origin of the left ICA, unchanged. 3. 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 4. No focal vessel occlusion or dissection. Electronically signed by: Fransisco Cortez M.D. 07/09/2019 8:[address] angio head w con CLINICAL HISTORY: 69 years-old Male presenting with cva. TECHNIQUE: Multidetector CT angiography of the head was performed after the administration of intravenous contrast. 3-D volumetric and/or maximum intensity projection (MIP) images were subsequently reconstructed for review. IV contrast: 120 mL of Optiray 320. One or more dose lowering techniques were used consistent with the principles of ALARA (as low as reasonably achievable), including automatic exposure control, mA or kV adjustment to individual patient size, and/or use of iterative reconstruction. COMPARISON: 10/09/2017. CT DOSE (mGy.cm): The estimated cumulative dose is 616.48 mGy.cm. FINDINGS: Loaders topogram: Anterior fusion hardware in the cervical spine. Anterior circulation: Intracranial portions of the internal carotid arteries patent to the level of the termini. Anterior cerebral arteries patent. Middle cerebral arteries patent. Anterior communicating artery patent. Posterior circulation: Codominant vertebral arteries. Intradural portions of the vertebral arteries patent. Posterior inferior cerebellar arteries patent. Basilar artery patent. Anterior inferior cerebellar arteries poorly visualized. Superior cerebellar arteries patent. Posterior cerebral arteries patent. Posterior communicating arteries patent. Dural venous sinuses: Patent. Other: Allowing for the phase of contrast, brain parenchyma within normal limits. Calvarium intact. IMPRESSION: 1. No evidence of aneurysm, focal vessel occlusion, or significant stenosis of the intracranial arteries. Electronically signed by: Fransisco Cortez M.D. 07/09/2019 8:35 AM ECG Data Indication: weakness Rate (beats per minute): 60 Rhythm: normal sinus Findings: no ST elevation and no ectopy Comparison ECG Date: from (10/09/17) Change: no significant change Blood Pressure Blood Pressure Findings: Elevated blood pressure Blood Pressure Disposition: elevated BP felt to be situational MDM Narrative This is a 69-year-old male who presents to the ED with a chief complaint of left-sided weakness. The patient states that he had some numbness in his left arm several days ago. The patient reports that he awoke around 415 this morning and noticed weakness in his left arm and left leg. Last night he went to bed around 930 and things were otherwise normal mechanically. He does report a slight headache and some visual changes in his left eye. He states his vision seems funny. The patient had a prehospital blood sugar of 70. His symptoms are otherwise documented in his physical exam and history above. A stroke alert was called prior to the patient's arrival. CT scans were ordered upon the patient's arrival and prior to the patient arriving in room B1. On my exam, the patient has weakness in the left arm that is mild. He has moderate weakness in the left leg specifically at the level of the left hip. He also has some subjective decreased sensation in the left arm and left leg. He is otherwise awake, alert and oriented in no distress. His blood pressure is elevated. The patient reports CVA symptoms about 1 year ago reminiscent of these although they were worse at that time. Review of the records reveals that he had TPA at that time and his symptoms improved. He currently takes a baby aspirin. The patient CT scan of the brain without contrast was without acute findings. CT scan angiogram of the head was negative as well. CT angiogram of the neck reveals a 50 to 75% stenosis of the right internal carotid artery. The lab work was unremarkable. A twelve-lead EKG shows a normal sinus rhythm. I spoke with Dr. Burns prior to seeing the patient. I also spoke with her after seeing the patient. Because of the timing of the symptoms, the patient was not a throm bolytic cannulate. She recommended adding Plavix to the patient's baseline medication regimen. The patient will be admitted for further evaluation and care. She did recommend MRI as well as echo with bubble study to further evaluate this patient's symptoms. I spoke with Dr. Foster from the hospitalist service. The patient will be seen by him. Impression & Plan Cerebrovascular accident Discharge Plan Visit Data Chief Complaint: Stroke Alert ED Provider: Bj Marquez Discharge Problem: Cerebrovascular accident Patient Disposition: Being Evaluated by Hospitalist Forms Stand Alone Forms: My [facility] Prescriptions Prescriptions: No Action atorvastatin [Lipitor] 10 mg Tablet 10 mg PO DAILY RF: 0 thiamine HCl (vitamin B1) 100 mg Tablet 100 mg PO DAILY RF: 0 aspirin [Aspirin Low Dose] 81 mg Tablet,Delayed Release (Dr/Ec) 81 mg PO DAILY RF: 0 folic acid 1 mg Tablet 1 mg PO DAILY RF: 0 coenzyme Q10 [CoQ-10] 100 mg Capsule 100 mg PO DAILY RF: 0 Referrals Referrals: Eric Castro [Primary Care Provider] - Discharge Problem: Cerebrovascular accident Qualifiers: CVA mechanism: unspecified Qualified Code(s): I63.9 - Cerebral infarction, unspecified The scribe's documentation has been prepared under my direction and personally reviewed by me in its entirety. I confirm that the note above accurately reflects all work, treatment, procedures, and medical decision making performed by me.
[2019-07-09 08:43] LABS: Basophils # (auto) 0.02 K/uL (0-0.2); Basophils % (auto) 0.5 %; Eosinophils # (auto) 0.02 K/uL (0-0.5); Eosinophils % (auto) 0.5 %; Hematocrit (blood only) 37.9 % (42-52); Hemoglobin 12.8 g/dL (14.0-18.0); Lymphocytes # (auto) 0.99 K/uL (1.2-3.4); Lymphocytes % (auto) 27.2 %; Mean Corpuscular Hemoglobin 32.5 pg (25-34); Mean Corpuscular Hgb Conc 33.8 g/dL (32-36); Mean Corpuscular Volume 96.2 fL (80-100); Mean Platelet Volume 9.5 fL (7.4-10.4); Monocytes # (auto) 0.34 K/uL (0.11-0.59); Monocytes % (auto) 9.3 %; Neutrophils # (auto) 2.27 K/uL (1.4-6.5); Neutrophils % (auto) 62.5 %; Platelet Count 164 K/uL (130-400); RDW Coefficient of Variation 13.9 % (11.5-14.5); RDW Standard Deviation 49.2 fL (36.4-46.3); Red Blood Count 3.94 M/uL (4.7-6.1); White Blood Count 3.64 K/uL (4.8-10.8)
--- NOTE | 2019-07-09 08:45 | CT Scan Report ---
CT angio neck with con CLINICAL HISTORY: 69 years-old Male presenting with cva. TECHNIQUE: Multidetector CT angiography of the neck was performed after the administration of intrave nous contrast. 3-D volumetric and/or maximum intensity projection (MIP) images were subsequently gisele nstructed for review. IV contrast: 120 mL of Optiray 320. One or more dose lowering techniques were u sed consistent with the principles of ALARA (as low as reasonably achievable), including automatic ex posure control, mA or kV adjustment to individual patient size, and/or use of iterative reconstructio n. Stenosis measurements were based on NASCET-like criteria (distal lumen diameter as the denominator for stenosis measurement). COMPARISON: 10/09/2017. CT DOSE (mGy.cm): The estimated cumulative dose is 616.48. FINDINGS: Zoo Caretaker topogram: Anterior cervical fusion hardware. Aortic arch: Atherosclerosis of the three-vessel aortic arch with patent origins of the left common a nd left subclavian arteries. Origin of the innominate is not fully included within the [id number]. Innominate artery: Patent. Right subclavian artery: Patent. Right common carotid artery: Patent. Right internal and external carotid arteries: Calcified and noncalcified atherosclerotic plaque at th e carotid bifurcation with resultant 50-75% stenosis of the origin of the right internal carotid nuvia ry, slightly progressed from prior. Calcified atherosclerotic plaque at the origin of the external ca rotid artery without significant stenosis. Left common carotid artery: Patent. Left internal and external carotid arteries: Largely calcified atherosclerotic plaque at the carotid bifurcation with less than 50% stenosis of the origin of the left internal carotid artery. This is un changed from prior. Widely patent origin and course of the external carotid artery. Left subclavian artery: Patent. Vertebral arteries: Codominant vertebral arteries. Redemonstration of the fusiform 5 mm aneurysm of t he left vertebral artery at the level of C1-2. Other: Limited intracranial evaluation within normal limits. Soft tissues of the neck normal allowing for the phase of contrast. Anterior fusion hardware from C5 to C7. Degenerative changes of the spine . Lung apices clear. IMPRESSION: 1. Atherosclerosis with 50-75% stenosis of the origin of the right ICA, slightly progressed from aryan or. 2. Less than 50% stenosis of the origin of the left ICA, unchanged. 3. 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 4. No focal vessel occlusion or dissection. Electronically signed by: Fransisco Cortez M.D. 07/09/2019 8:44 AM
[2019-07-09] MEDS ORDERED: CLOPIDOGREL BISULFATE 75 MG TAB PO ONE (08:56)
[2019-07-09 08:57] LABS: Partial Thromboplastin Time 26.2 Seconds (21.0-31.0); Prothrombin Time 10.4 Seconds (9.0-12.0)
[2019-07-09 08:59] LABS: Alanine Aminotransferase 28 U/L (12-78); Albumin Level 3.2 gm/dl (3.4-5.0); Aspartate Aminotransferase 35 U/L (15-37); BUN Creatinine Ratio 9.1 (10-20); Blood Urea Nitrogen 8 mg/dl (7-18); Calcium 8.7 mg/dl (8.5-10.1); Carbon Dioxide 25 mmol/L (21-32); Chloride 105 mmol/L (98-107); Creatinine Clr Calc Pharmacy 75.1 ml/min; Est GFR (African American) 102.5; Est GFR (Non-African American) 88.5; Glucose 80 mg/dl (70-99); Potassium 3.9 mmol/L (3.5-5.1); Sodium 136 mmol/L (136-145)
[2019-07-09 09:03] LABS: Alkaline Phosphatase 62 U/L (45-117); Bilirubin,Total 0.5 mg/dl (0.2-1); Globulin 3.2 gm/dl (2.5-4.0); Total Protein 6.4 gm/dl (6.4-8.2); Troponin I < 0.015 ng/ml (0-0.045)
[2019-07-09] MEDS ORDERED: PHARMACIST DISCHARGE MED REC CONSULT PRN (09:08)
[2019-07-09 10:33] LABS: Estimated Average Glucose 120 mg/dl; Hemoglobin A1C 5.8 % (4.5-5.6)
[2019-07-09] MEDS ORDERED: ASPIRIN 81 MG ECTAB PO ONE (11:00)
[2019-07-09] MEDS: ATORVASTATIN 40 MG TAB PO SCH (11:46)
[2019-07-09] MEDS ORDERED: INFLUENZA ADMINISTRATION CHARGE ONE (16:00)
[2019-07-09] MEDS ORDERED: INFLUENZA VACCINE HIGH DOSE 65+ 0.5 ML SYR IM ONE (16:00)
--- NOTE | 2019-07-09 22:37 | History & Physical Report ---
Date of Service July 09, 2019 Assessment & Plan (1) Left-sided weakness: Patient likely suffered a second stroke. Sadly patient no longer in window for tPA. Reviewed CTA of head neck and head ct scan. These were ngetaive. Will obtain Brain MRI. Patient also will be placed on ASA and plavix. Will consult neuro. increased his atorvastatin however depending on his LDL in the AM, may return to previous dose if LDL is below 70. (2) Blurry vision, left eye: Patient has left eye blurry vision. Will monitor. No loss of peripheral vision however. (3) Carotid stenosis, bilateral: Patient has h/o of carotid stenosis. will monitor. On statin, ASA. added plavix (4) Hypertension: Patient came in with elevated blood pressure, will monitor. History of Present Illness Chief Complaint: left sided weakness Primary Care Provider: Eric Castro 69 yo male with history of an ischemic stroke treated with tPA almsot 2 years ago. He reports having a 25 pack year smoking history but stopped smoking when he had his stroke. He woke up today with left sided weakness in his upper extremity and lower extremty. He also noticed difficulty ambulating due to the weakness. This was also accompanied by some blurry vision on his left eye. Patient tried to go to work, but his supervisors sent him home so he can go to the hospital. He last known well time was before going to bed, which means patient is out of window of getting tPA. Allergies Allergy/AdvReac Type Severity Reaction Status Date / Time Penicillins Allergy Unknown Hives Verified 07/09/19 09:58 ampicillin AdvReac Unknown Hives Unverified 07/09/19 09:58 Home Medications Home Medications Medication Instructions Recorded Confirmed Type aspirin [Aspirin Low Dose] 81 mg PO DAILY 07/23/18 07/09/19 History atorvastatin [Lipitor] 10 mg PO DAILY 07/23/18 07/09/19 History coenzyme Q10 [CoQ-10] 100 mg PO DAILY 07/23/18 07/09/19 History folic acid 1 mg PO DAILY 07/23/18 07/09/19 History thiamine HCl (vitamin B1) 100 mg PO DAILY 07/23/18 07/09/19 History Past Med/Surg History Medical History History of stroke (Resolved) Surgical History History of carpal tunnel surgery of left wrist S/P cervical spinal fusion Family History Mother , in her 60s of uncertain cause No problems noted. Father , age 70 of uncertain cause No problems noted. 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 Hx Substance Use: No Review of Systems Constitutional: no fever, no sweats and no body aches Eyes: + worsening vision; no blind spots Ear, Nose, Mouth, Throat: no ear pain and no tinnitus Respiratory: no cough and no dyspnea Cardiovascular: no chest pain and no chest pain with activity Gastrointestinal: no abdominal pain and no vomiting Musculoskeletal: + muscle weakness Integumentary: no non-healing lesions and no skin ulcer Neurologic: no falls Psychiatric: no hopelessness and no change in appetite Endocrine: no polydipsia Hematologic / Lymphatic: no coagulopathy Physical Exam Constitutional: WD/WN, vitals as above well developed Eyes: PERRL, conjunctivae normal, anicteric sclerae normal visual heller by confrontation ENMT: external ear and nose normal, oropharynx normal Neck: trachea midline, no thyromegaly Respiratory: normal respiratory effort, lungs clear to auscultation Cardiovascular: RRR, no murmur, no edema Gastrointestinal (Abdomen): normal bowel sounds, soft, nontender, no hepatosplenomegaly Musculoskeletal: no cyanosis or clubbing, extremities motor strength 5/5 Results & Data Vital Signs (Past 12 Hours) Vital Signs Temp Pulse Pulse Resp BP BP Pulse Ox 07/09/19 19:40 36.5 C 57 L 16 135/77 97 07/09/19 15:22 36.7 C 58 L 16 125/72 95 07/09/19 13:00 36.5 C 59 L 18 171/84 H 99 07/09/19 12:30 53 L 14 98 07/09/19 12:15 58 L 13 98 07/09/19 12:01 57 L 20 126/77 100 07/09/19 12:00 71 24 100 07/09/19 11:45 53 L 14 99 07/09/19 11:30 36.6 C 54 L 15 98 07/09/19 11:20 54 L 20 165/83 H 98 07/09/19 11:19 60 17 07/09/19 11:15 36.7 C 53 L 17 165/83 H 99 Pulse Ox 07/09/19 19:40 07/09/19 15:22 07/09/19 13:00 07/09/19 12:30 07/09/19 12:15 07/09/19 12:01 07/09/19 12:00 07/09/19 11:45 07/09/19 11:30 07/09/19 11:20 07/09/19 11:19 07/09/19 11:15 98 Code Status & VTE Plan VTE Prophylaxis Plan VTE Prophylaxis will be ordered: Yes PG Care Time/CCT Total # of Minutes Spent Total Time Spent with Patient: Total time spent is greater than 50% in coordination of care (as documented) at patient's floor/unit and/or counseling patient:
--- NOTE | 2019-07-10 02:27 | Progress Note ---
Date of Service July 10, 2019 Received a text page from the patient's nurse around 1:35 AM stating that the patient was complaining of left-sided chest pain that radiated into his left shoulder and arm. She performed an EKG prior to this notification. On review, it is sinus bradycardia rate 59 and appears about the same as his admission EKG. No acute STT wave changes seen. On brief review of his chart, there is minimal acute visit information within his H&P. The emergency department note mentions that he was admitted for weakness and a stroke work-up. CT head as well as CT angiograms were nonfocal though he does have some carotid stenosis. Spoke with patient at bedside. At that time patient says that his chest and arm pain completely resolved. He notes that he did have similar symptoms when he had his initial stroke. He notes that he has lingering weakness but that his arm presently feels about at baseline. Denies any respiratory symptoms. Otherwise and overall is presently comfortable. Vitals reviewed. Appears comfortable, watching TV. Positive S1S2, borderline but regular bradycardia. Clear to auscultation bilaterally. Fair alpaca farmer strength with left hand. EKG as above. Troponin check was negative. Assessment/plan: Resolved chest/arm symptoms. Transient. Unclear origin, though does not appear to be cardiac in nature. Patient did undergo a brain MRI a couple of hours ago. The overnight read is not available. We will continue to monitor for now. Patient was content with this plan. Updated his nurse. Low Head, PGY3 Overnight call Results & Data Vital Signs (Past 12 Hours) Vital Signs Temp Pulse Pulse Resp BP BP Pulse Ox 07/10/19 01:18 36.5 C 59 L 18 144/87 H 97 07/09/19 23:46 64 07/09/19 23:28 36.4 C L 56 L 16 133/73 98 07/09/19 19:40 36.5 C 57 L 16 135/77 97 07/09/19 15:22 36.7 C 58 L 16 125/72 95
[2019-07-10 06:02] LABS: Basophils # (auto) 0.01 K/uL (0-0.2); Basophils % (auto) 0.2 %; Eosinophils # (auto) 0.06 K/uL (0-0.5); Eosinophils % (auto) 1.5 %; Hematocrit (blood only) 40.6 % (42-52); Hemoglobin 13.8 g/dL (14.0-18.0); Lymphocytes # (auto) 0.95 K/uL (1.2-3.4); Lymphocytes % (auto) 23.5 %; Mean Corpuscular Hemoglobin 32.7 pg (25-34); Mean Corpuscular Volume 96.2 fL (80-100); Mean Platelet Volume 9.9 fL (7.4-10.4); Monocytes # (auto) 0.45 K/uL (0.11-0.59); Monocytes % (auto) 11.1 %; Neutrophils # (auto) 2.57 K/uL (1.4-6.5); Neutrophils % (auto) 63.7 %; Platelet Count 172 K/uL (130-400); RDW Coefficient of Variation 14.1 % (11.5-14.5); RDW Standard Deviation 49.7 fL (36.4-46.3); Red Blood Count 4.22 M/uL (4.7-6.1); White Blood Count 4.04 K/uL (4.8-10.8)
[2019-07-10 06:32] LABS: BUN Creatinine Ratio 14.6 (10-20); Calcium 8.3 mg/dl (8.5-10.1); Creatinine Clr Calc Pharmacy 59.5 ml/min; Est GFR (African American) 88.6; Est GFR (Non-African American) 76.5; Potassium 3.5 mmol/L (3.5-5.1)
--- NOTE | 2019-07-10 07:04 | Magnetic Resonance Report ---
MR brain wo con HISTORY: 69 years-old Male weakness acute strokelike symptoms with left-sided weakness, acute headac he with blurry vision COMPARISON: CT head, CTA head neck 07/09/2019, brain MRI 10/10/2017 TECHNIQUE: Multiplanar multisequence MRI of the brain was obtained without the use of IV contrast. FINDINGS: Grocery Clerk Stocking localizer images demonstrate no gross extracranial abnormality. There is no restricted diffusio n to suggest acute or subacute infarction. Midline structures including the corpus callosum, brainste m, optic chiasm, pituitary and pineal glands appear unremarkable on the sagittal T1 series. No cerebe llar tonsillar herniation. Degenerative changes are noted about the imaged cervical spine. No acute intracranial hemorrhage, midline shift, abnormal extra-axial collection, hydrocephalus or in tracranial mass. Mild degree of patchy T2/FLAIR hyperintensities about the white matter is suggestive of chronic microvascular ischemic disease. Minimal age-related involutional changes. Major flow void s at the level of the skull base appear patent. Mastoid air cells are clear. Mild leftward bowing and spurring of the nasal septum. Minimal mucosal thickening of the ethmoid air cells and nasal turbinat es. Orbits, skull and soft tissues are unremarkable. IMPRESSION: 1. No acute intracranial abnormality. 2. Mild degree of patchy T2/FLAIR hyperintensities of the white matter are suggestive of chronic micr ovascular ischemic disease. The above report was generated using voice recognition software. It may contain grammatical, syntax o r spelling errors. Electronically signed by: Da Abdi M.D. 07/10/2019 7:03 AM
--- NOTE | 2019-07-10 08:48 | Neurology Consultation ---
Date of Consultation July 10, 2019 Assessment & Plan (1) Left-sided weakness: (2) Left sided numbness: (3) Blurry vision, left eye: (4) Carotid stenosis, bilateral: (5) Chronic cerebral ischemia: (6) Cramps of lower extremity: (7) Hypertension: This patient is complicated neurologically based on his presentation, lack of ACTIVITIES OFFICER findings, and inconsistent exam. He presented July 08, with left arm and leg weakness and numbness and blurry vision in the left eye. There was a mild posterior headache also He was significantly hypertensive on admission but this spontaneously came down to normal without medication. MRI of the brain was unremarkable. He does not have any evidence of stroke and does not have any evidence of previous strokes. His neurologic examination shows variable strength/resistance in the left arm and leg suggesting giveaway weakness (not secondary to pain). There are no upper motor neuron signs on exam. With this hypertension, vasospasm is possible leading to a complicated migraine with headache and his weakness and numbness symptoms. I doubt this represents an ischemic or embolic TIA. Patient does have bilateral carotid stenosis right greater than left side with the right side progressing some compared to September of 2017 on aspirin. He has very mild old chronic cerebral ischemic changes otherwise. He has had recent cramps in his legs. Laboratory testing so far does not reveal any etiology for cramps. Recommendations: 1. Agree with addition of clopidogrel 75 mg daily. We can discontinue the 81 mg aspirin. 2. Monitor and control blood pressure if elevated. Verapamil may be my drug of choice if he needs an antihypertensive, as this is an excellent medication to prevent vasospasm. 3. Continue statin at current dose. 4. Physical and occupational therapy- evaluate and treat. Increase activity as able. 5. CK, ESR, TSH, B12, Lyme antibody titer Overall, I spent a total of 125 minutes with this case including review of records, review of MRI and CT films, direct evaluation the patient at bedside, and discussing the case with the patient at bedside and Dr. Foster, including differential diagnosis and treatment options. History of Present Illness Reason for Consultation: Patient is a 69-year-old, who I was asked to see at the request of Dr. Foster, for neurologic consultation regarding acute onset left- sided weakness and numbness. Requesting Physician: Dr. Foster Attending Physician: Franklin Foster History of Present Illness Patient tells me that he has never been treated for hypertension, heart issues, or diabetes. He was a pack per day cigarette smoker throughout his time in the [employer]. When he stop smoking, over 10 years ago, he ended up using a can of chewing tobacco every 2-3 days. He will have a couple of drinks of alcohol many days out of the week. In September of 2017, the patient presented with left-sided weakness and decreased vision to the left. In the emergency room he was given tPA by the time Dr. Davis saw him for neurologic consultation next morning, his neurologic examination was normal and he was asymptomatic. Blood pressure was elevated some that admission but he was never treated. He was initiated on Lipitor 10 mg a day an 81 mg aspirin tablet daily. He has remained on these since. He stopped chewing tobacco also. At that time, CT angiography showed a 50% stenosis at the origin of the right internal carotid artery and 40% stenosis on the left. 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 A FELICE was normal. MRI of the brain showed no acute stroke and only very mild nonspecific old small vessel ischemic changes. He did well since then and has had no symptoms up until his current admission. The patient went to bed at 2130 on July 08 feeling well. 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 He woke up around [id number] and notice his left side was weak. He then tried to go back to sleep and woke up again at 0415 with left arm and leg weakness, left arm and leg numbness and lack of feeling, some fuzzy vision in his left eye and then occipital headache. He also had some mild anterior chest pain. He got dressed and went to the [facility] to go to work. When they saw him not walking well, they sent him to the emergency room. He had no pain, speech problems, cognitive issues, or incontinence. He arrived to the emergency room July 09 at 0825 with a temperature 36.9, pulse 63 and regular, respiratory rate 18 and regular, blood pressure 178/106, and O2 saturation 99%. Exam showed mild left upper extremity and moderate left lower extremity weakness with decreased sensation in left arm and leg. CBC showed some mild anemia. Chem profile was unremarkable. CT scan of the head was unremarkable. CT angiography of the head showed no significant stenoses or vessel anomalies. CT angiography of the neck showed a 50-75% stenosis at the origin of the right internal carotid artery, progressed from the previous study of September 2017. There was less than 50% stenosis in the left internal carotid artery, unchanged from previous, and the 5 mm fusiform aneurysm in the left vertebral was unchanged as well. I reviewed these films. MRI of the brain showed no acute stroke and minimal old small vessel ischemic changes and mild atrophy in general. I reviewed these films also. This morning CBC and Chem profile were unremarkable. Total cholesterol was 141 triglycerides 87. Hemoglobin A1c was 5.8. Blood pressure this morning was 130/76. Patient tells me that he is having leg cramps of a very severe nature intermittently over the last few weeks, particularly when he is trying to rest. Allergies Allergy/AdvReac Type Severity Reaction Status Date / Time Penicillins Allergy Unknown Hives Verified 07/09/19 09:58 ampicillin AdvReac Unknown Hives Unverified 07/09/19 09:58 Home Medications Home Medications Medication Instructions Recorded Confirmed Type aspirin [Aspirin Low Dose] 81 mg PO DAILY 07/23/18 07/09/19 History atorvastatin [Lipitor] 10 mg PO DAILY 07/23/18 07/09/19 History coenzyme Q10 [CoQ-10] 100 mg PO DAILY 07/23/18 07/09/19 History folic acid 1 mg PO DAILY 07/23/18 07/09/19 History thiamine HCl (vitamin B1) 100 mg PO DAILY 07/23/18 07/09/19 History Patient History Medical History History of stroke (Resolved) Surgical History History of carpal tunnel surgery of left wrist S/P cervical spinal fusion Family History Mother , in her 60s of uncertain cause No problems noted. Father , age 70 of uncertain cause No problems noted. 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 Hx Substance Use: No Review of Systems Constitutional: + weakness; no fever and no fatigue Eyes: + worsening vision; no diplopia and no eye pain Ear, Nose, Mouth, Throat: no ear pain, no tinnitus, no hearing loss, no dizziness, no snoring, no hoarseness and no dysphagia Respiratory: no cough and no dyspnea Cardiovascular: no chest pain, no palpitations and no lightheadedness Gastrointestinal: no abdominal pain, no nausea and no vomiting Genitourinary: no dysuria and no urinary incontinence Musculoskeletal: + neck pain; no back pain, no radicular pain, no joint pain and no myalgia Integumentary: no rash and no lesions Neurologic: + gait abnormality, + localized weakness, + numbness and + headache(s); no generalized weakness, no tingling, no tremor(s), no abnormal movements, no abnormal speech, no confusion and no memory loss Psychiatric: no depression, no irritability, no anxiety, no difficulty concentrating, no confusion and no hallucinations Endocrine: + fatigue; no flushing Hematologic / Lymphatic: no easy bleeding and no easy bruising Allergy / Immunological: no urticaria and no problem reported Physical Exam Physical Exam: The patient is right-handed. The patient is awake, alert, and attentive. Speech is normal without any aphasia or dysarthria. he can name objects, repeat phrases, and has normal spontaneous speech. Mentation and thought processes are intact, with orientation to person, place and time, and normal fund of knowledge. Attention and concentration are normal. Mood and affect are normal and appropriate. General appearance and grooming are normal. Short and long-term memory are intact. The discs are sharp with positive venous pulsations bilaterally. There are no exudates, hemorrhages, or blood vessel changes seen. Pupils are 4 mm bilaterally and reactive to light. Extraocular eye muscles are intact without nystagmus. Visual heller seem normal grossly to confrontation. When covering his right eye, he felt that all of the vision in his left eye was blurry. When covering his left eye he saw normally through his right eye. There are no deficits to sensation in the face in all 3 distributions of the fifth cranial nerve bilaterally. Corneal reflexes are positive bilaterally. Facial strength and symmetry was normal bilaterally. Hearing seems normal to whisper and finger rub bilaterally. Palate moves well without asymmetry. There is normal sternocleidomastoid and trapezius (shoulder shrug) strength bilaterally. Tongue is midline with good strength bilaterally. Neck has a full range of motion without discomfort. There are no cervical bruits bilaterally. There are no cranial or ocular bruits. Heart is without murmur. There is a regular rhythm and rate. Cervical, thoracic, and lumbar spine are nontender to palpation. Gait is awkward and he limps favoring the left leg. It was a jerking kind of gait and once he did not helping a lot of pressure on his left leg and did not fall With outstretched arms there is no drift on the right. On the left the whole arm sagged down quickly. There are no resting, postural, or action tremors. There is no ataxia with finger to nose testing. There is good facility in the right hand and irregular facility in the left hand (sometimes very good and sometimes poor). No other abnormal involuntary movements are noted. Motor strength is 5/5 diffusely in the right arm including deltoids, biceps, triceps, brachioradialis, wrist flexors and extensors, sensitized paper tester, and intrinsic hand muscles. The left upper extremity had irregular variable strength in all muscles tested both proximally distally in a giveaway and inconsistent fashion. Motor strength is 5/5 diffusely in the right leg including hip flexors, quadriceps, hamstrings, gastrocnemius, tibialis anterior, tibialis posterior, and Peroneii muscles. The left leg had variable/inconsistent, giveaway type weakness. Sometimes it was clear that he had good strength in certain muscle groups in the arm and the leg on the left. Toe extensors are normal and there is good bulk in the extensor digitorum brevis muscles bilaterally. The limbs have good tone without rigidity or spasticity. There is no atrophy noted in the muscles. Muscle bulk is normal, there is no tenderness to palpation, no myotonia to percussion, and no fasciculations seen. Sensory examination reveals a lack of sensation in the left lower extremity diffusely but the left arm and face are spared. The right side is normal. Reflexes are 1/4 in the biceps, triceps, brachioradialis, quadriceps, and Achilles tendons bilaterally. There is no clonus bilaterally. Toes are downgoing with plantar stimulation bilaterally. Peripheral pulses are present and of normal quality distally in all 4 limbs. There is no peripheral edema noted in the limbs. Constitutional: no acute distress Cardiovascular: Rate/Rhythm: regular rate and regular rhythm Heart Sounds: no murmur Extremities: no pedal edema Musculoskeletal: Head/Neck/Chest: neck supple Spine: no cervical spinal tenderness and no lumbar spinal tenderness Gait: normal gait Psychiatric: Mood: no depressed mood and no anxious mood Results & Data Vital Signs (Past 12 Hours) Vital Signs Temp Pulse Pulse Pulse Resp BP BP 07/10/19 08:11 36.4 C L 77 18 130/76 07/10/19 04:22 36.5 C 57 L 20 129/79 07/10/19 01:18 36.5 C 59 L 18 144/87 H 07/09/19 23:46 64 07/09/19 23:28 36.4 C L 56 L 16 133/73 Pulse Ox 07/10/19 08:11 97 07/10/19 04:22 97 07/10/19 01:18 97 07/09/19 23:46 07/09/19 23:28 98 Diagnostic Findings MR brain wo con HISTORY: 69 years-old Male weakness acute strokelike symptoms with left-sided weakness, acute headache with blurry vision COMPARISON: CT head, CTA head neck 07/09/2019, brain MRI 10/10/2017 TECHNIQUE: Multiplanar multisequence MRI of the brain was obtained without the use of IV contrast. FINDINGS: Metal Drawer localizer images demonstrate no gross extracranial abnormality. There is no restricted diffusion to suggest acute or subacute infarction. Midline structures including the corpus callosum, brainstem, optic chiasm, pituitary and pineal glands appear unremarkable on the sagittal T1 series. No cerebellar tonsillar herniation. Degenerative changes are noted about the imaged cervical spine. No acute intracranial hemorrhage, midline shift, abnormal extra-axial collection, hydrocephalus or intracranial mass. Mild degree of patchy T2/FLAIR h yperintensities about the white matter is suggestive of chronic microvascular ischemic disease. Minimal age-related involutional changes. Major flow voids at the level of the skull base appear patent. Mastoid air cells are clear. Mild leftward bowing and spurring of the nasal septum. Minimal mucosal thickening of the ethmoid air cells and nasal turbinates. Orbits, skull and soft tissues are unremarkable. IMPRESSION: 1. No acute intracranial abnormality. 2. Mild degree of patchy T2/FLAIR hyperintensities of the white matter are suggestive of chronic microvascular ischemic disease. The above report was generated using voice recognition software. It may contain grammatical, syntax or spelling errors. Electronically signed by: Da Abdi M.D. 07/10/2019 7:03 AM PG Care Time/CCT Total # of Minutes Spent Total Time Spent with Patient: Total time spent is greater than 50% in coord ination of care (as documented) at patient's floor/unit and/or counseling patient:
[2019-07-10] MEDS: ATORVASTATIN 40 MG TAB PO SCH (09:05)
[2019-07-10] MEDS: ASPIRIN 81 MG ECTAB PO SCH (09:05)
[2019-07-10] MEDS: CLOPIDOGREL BISULFATE 75 MG TAB PO SCH (09:05)
--- NOTE | 2019-07-10 22:35 | Hospitalist Progress Note ---
Date of Service July 10, 2019 Assessment & Plan (1) Left-sided weakness: Patient likely suffered a second stroke. Sadly patient no longer in window for tPA. Reviewed CTA of head neck and head ct scan. These were negative. MRI brain was negative. Perhaps hypertensive vasospasm or complicated migraine. however this would not explain variable and inconsistent findings on examination. I reassured patient that this is likely reversible. at bedside and is relieved. Patient is on ASA and plavix. increased his atorvastatin however depending on his LDL in the AM, may return to previous dose if LDL is below 70. (2) Blurry vision, left eye: Patient has left eye blurry vision. Will monitor. No loss of peripheral vision however. (3) Carotid stenosis, bilateral: Patient has h/o of carotid stenosis. will monitor. On statin, ASA. added plavix (4) Hypertension: Patient came in with elevated blood pressure, will monitor. Subjective Patient reports no new symptoms. He states he feels mild improvement from yesterday. Review of Systems Review of Systems: All systems reviewed & are unremarkable except as noted in HPI & below Physical Exam Physical Exam: Constitutional: WD/WN, vitals as above well developed Eyes: PERRL, conjunctivae normal, anicteric sclerae normal visual heller by confrontation ENMT: external ear and nose normal, oropharynx normal Neck: trachea midline, no thyromegaly Respiratory: normal respiratory effort, lungs clear to auscultation Cardiovascular: RRR, no murmur, no edema Gastrointestinal (Abdomen): normal bowel sounds, soft, nontender, no hepatosplenomegaly Musculoskeletal: no cyanosis or clubbing, extremities motor strength 5/5 Neuro: varibale strength on left arm. Initially, he would not let me lift it passively, then he did once I said relax. He was able to lift arm, once I mentioned, keep arm from dropping, arm fell. No ataxia, no loss in sensation, no loss in peripheral VISION, CN II- XII intacted Results & Data Vital Signs (Past 12 Hours) Vital Signs Temp Pulse Resp BP Pulse Ox 07/10/19 19:24 36.8 C 57 L 18 106/65 97 07/10/19 15:23 36.6 C 58 L 20 128/78 97 07/10/19 11:59 36.8 C 82 17 120/72 97 PG Care Time/CCT Total # of Minutes Spent Total Time Spent with Patient: Total time spent is greater than 50% in coordination of care (as documented) at patient's floor/unit and/or counseling patient:
[2019-07-11 05:38] LABS: Basophils # (auto) 0.02 K/uL (0-0.2); Basophils % (auto) 0.4 %; Eosinophils # (auto) 0.07 K/uL (0-0.5); Eosinophils % (auto) 1.3 %; Hematocrit (blood only) 41.7 % (42-52); Hemoglobin 14.5 g/dL (14.0-18.0); Immature Granulocytes # (auto) 0.01 K/uL (0.00-0.02); Immature Granulocytes % (auto) 0.2 %; Lymphocytes # (auto) 1.36 K/uL (1.2-3.4); Lymphocytes % (auto) 25.2 %; Mean Corpuscular Hemoglobin 33.3 pg (25-34); Mean Corpuscular Hgb Conc 34.8 g/dL (32-36); Mean Corpuscular Volume 95.9 fL (80-100); Mean Platelet Volume 9.7 fL (7.4-10.4); Monocytes # (auto) 0.63 K/uL (0.11-0.59); Monocytes % (auto) 11.7 %; Neutrophils % (auto) 61.2 %; Platelet Count 178 K/uL (130-400); RDW Coefficient of Variation 13.8 % (11.5-14.5); RDW Standard Deviation 48.7 fL (36.4-46.3); Red Blood Count 4.35 M/uL (4.7-6.1); White Blood Count 5.39 K/uL (4.8-10.8)
[2019-07-11 06:04] LABS: BUN Creatinine Ratio 15.8 (10-20); Calcium 8.5 mg/dl (8.5-10.1); Creatinine Clr Calc Pharmacy 60.5 ml/min; Est GFR (African American) 89.7; Est GFR (Non-African American) 77.4
[2019-07-11 06:42] LABS: Lyme Ab IgG w/WB Rflx Negative (Negative)
[2019-07-11 06:52] LABS: Lyme Ab IgM w/WB Rflx Equivocal (Negative)
[2019-07-11] MEDS: CLOPIDOGREL BISULFATE 75 MG TAB PO SCH (08:03)
[2019-07-11] MEDS: ASPIRIN 81 MG ECTAB PO SCH (08:03)
[2019-07-11] MEDS ORDERED: ATORVASTATIN 10 MG TAB PO SCH (09:00)
--- NOTE | 2019-07-11 11:38 | Neurology Progress Note ---
Date of Service July 11, 2019 Assessment & Plan (1) Left-sided weakness: (2) Left sided numbness: (3) Blurry vision, left eye: (4) Carotid stenosis, bilateral: (5) Chronic cerebral ischemia: (6) Cramps of lower extremity: (7) Hypertension: This patient July 10 complicated neurologically based on his presentation, lack of CRANE MAN findings, and inconsistent exam. He presented July 09, with left arm and leg weakness and numbness and blurry vision in the left eye. There was a mild posterior headache also He was significantly hypertensive on admission but this spontaneously came down to normal without medication. MRI of the brain was unremarkable. He does not have any evidence of stroke and does not have any evidence of previous strokes. His neurologic examination July 10 shows variable strength/resistance in the left arm and leg suggesting giveaway weakness (not secondary to pain). There were no upper motor neuron signs on exam. Today, July 11, his neurologic exam is entirely normal with no weakness or abnormalities of any type. With this hypertension, vasospasm is possible leading to a complicated migraine with headache and his weakness and numbness symptoms. I doubt this represents an ischemic or embolic TIA. Patient does have bilateral carotid stenosis right greater than left side with the right side progressing some compared to September of 2017 on aspirin. He has very mild old chronic cerebral ischemic changes otherwise. He has had recent cramps in his legs. Laboratory testing so far does not reveal any etiology for cramps. Recommendations: 1. Agree with addition of clopidogrel 75 mg daily. We can discontinue the 81 mg aspirin. 2. Monitor and control blood pressure if elevated. Verapamil may be my drug of choice if he needs an antihypertensive, as this is an excellent medication to prevent vasospasm. 3. Continue statin at current dose. 4. I can follow up as an outpatient if desired. Overall, I spent a total of 25 minutes with this case including review of records, direct evaluation the patient at bedside, and discussing the case with the patient at bedside and Dr. Farmer, including differential diagnosis and treatment options. Subjective Patient feels back to normal today with no left-sided weakness or other symptoms. CK, ESR, B12 were unremarkable. I did not see a TSH drawn and a Lyme screen was equivocal and we are awaiting the Western blot. He has no new issues. Physical Exam Physical Exam: Motor strength is 5/5 diffusely in all major muscle groups in the arms and legs both proximally and distally. Extraocular eye muscles are intact without nystagmus. There is no facial droop. He has no speech or mentation problems. Results & Data Vital Signs (Past 12 Hours) Vital Signs Temp Pulse Pulse Resp BP Pulse Ox 07/11/19 11:16 36.3 C L 63 18 115/74 99 07/11/19 08:08 36.5 C 71 18 116/74 97 07/11/19 08:00 56 L 07/11/19 03:10 36.4 C L 58 L 16 138/82 99 07/11/19 00:00 64 PG Care Time/CCT Total # of Minutes Spent Total Time Spent with Patient: Total time spent is greater than 50% in coordination of care (as documented) at patient's floor/unit and/or counseling patient:
[2019-07-11] MEDS ORDERED: STROKE PATIENT DISCHARGE STA (12:22)
--- NOTE | 2019-07-11 18:17 | Discharge Summary ---
Date of Service July 11, 2019 Admission HPI Per Admitting Provider 69 yo male with history of an ischemic stroke treated with tPA almsot 2 years ago. He reports having a 25 pack year smoking history but stopped smoking when he had his stroke. He woke up today with left sided weakness in his upper extremity and lower extremty. He also noticed difficulty ambulating due to the weakness. This was also accompanied by some blurry vision on his left eye. Patient tried to go to work, but his supervisors sent him home so he can go to the hospital. He last known well time was before going to bed, which means patient is out of window of getting tPA. Principal Diagnosis neurologic deficits - ?complicated migraine/vasospasm Discharge Exam General he is awake and alert pleasant no distress. HEENT normal cephalic atraumatic mucous members moist. Breathing unlabored no accessory muscle use good effort. Skin shows no rashes no pallor or icterus. Neuro shows no focal deficits. Discharge Data Allergies Allergy/AdvReac Type Severity Reaction Status Date / Time Penicillins Allergy Unknown Hives Verified 07/09/19 09:58 ampicillin AdvReac Unknown Hives Unverified 07/09/19 09:58 Consultations 07/09/19 09:09 Consult Case Management - Discharge Planning Routine Consult Neurology Routine 07/09/19 09:41 ED Decision to Admit Stat Ordered Studies 07/09/19 08:10 CT head/brain wo con Stat 07/09/19 08:20 CT angio head w con Stat CT angio neck with con Stat 07/09/19 22:36 MR brain wo con Routine Hospital Course (1) Left-sided weakness: Totally resolved, he does not suffer from frequent or recurrent migraines, and has had no history of this happening before. For now home with observation. If intervention required, and agree with neurology that a calcium channel herminia such as verapamil would likely be helpful, but given that this is never happened before and is unlikely to happen again, it is more likely to cause harm putting him on a chronic suppressive medication for something that may never recur. Stable from (2) Blurry vision, left eye: Resolved (3) Carotid stenosis, bilateral: Given that with hindsight his neurologic deficits were not atherosclerotic or ischemic, this is more of an incidental finding that requires monitoring. I will defer to his PCP in regards to his Lipitor dosing, by [place] criteria his LDL is adequately suppressed, but with plaque in his carotid, it is also reasonable to consider raising to at least 40 mg for plaque stabilization benefit. (4) Hypertension: Blood pressure is improved after initial elevations, outpatient follow-up. Total Time Total Time Spent Total Time Spent (In Minutes): Less than 30 Discharge Plan Discharge Items Patient Disposition: Home - Self-Care Reason For Visit: POSSIBLE STROKE Discharge Diagnosis: complicated migraine Activity: Resume your previous activity Non-emergency contact: Primary Care Provider and Neurologist Call non-emergency contact if: you have any medication questions and your symptoms worsen Follow-up/Referrals: Eric Castro [Primary Care Provider] - Diet: Regular Addtl Attending Provider Instructions: Complicated migraine -Fortunately you did not have a stroke, and your symptoms were suggestive of what is called a complicated migraine. -A "classic" migraine usually results from dilation of blood vessels in the brain followed by nerve dysfunction creating a throbbing headache, a "complicated" migraine is thought to be constriction of blood vessels in the brain instead, which is why people will often have strokelike symptoms. -Fortunately this totally resolved and no further treatment is necessary -As we discussed, given that you are not a frequent migraines suffer, while this could happen again, it is quite unlikely to. -We can take steps to prevent migraines with many medicines commonly used to treat high blood pressure, but given that your blood pressure and pulse rate are now normal, and given that this is not a recurring problem for you, we would likely cause more problems than good medicating to prevent a problem that may never happen again. In the midst of the work-up for stroke, you were incidentally found to have asymptomatic blockages of your carotid arteries. Right now they are open enough that the mainstay of treatment would be medical management to prevent further blockages, as well as repeated imaging in approximately 6 months, to ensure there is no progression. Your blood pressure looks good, and your cholesterol is adequately suppressed, so the main questions would really be making sure you are following a healthy lifestyle (eating heavily in fruits and vegetables, low in simple/starchy carbohydrates and "bad" (saturated) fats), exercising the better part of 30 minutes every day, and then "open for discussion" with your regular physician would be whether or not there would be "plaque stabilization" benefit for raising the dose of Lipitor, versus leaving it as it is because your cholesterols are low enough looking at it based on those criteria. Pending Studies at Discharge: No Stand-Alone Forms: My [facility] Medications and DC Order Prescriptions: Continued atorvastatin [Lipitor] 10 mg Tablet 10 mg PO DAILY RF: 0 thiamine HCl (vitamin B1) 100 mg Tablet 100 mg PO DAILY RF: 0 aspirin [Aspirin Low Dose] 81 mg Tablet,Delayed Release (Dr/Ec) 81 mg PO DAILY RF: 0 folic acid 1 mg Tablet 1 mg PO DAILY RF: 0 coenzyme Q10 [CoQ-10] 100 mg Capsule 100 mg PO DAILY RF: 0 Discharge Orders: Discharge Order (Routine); Ordered 07/11/19 Ordered By: George Leyva/Other Patient Handouts: Stroke Hours Follow, Stroke Sx, Stroke Taking Meds, Eat Healthy, Stroke Resources Support, High Blood Pressure Stroke Link, Stroke Dc, Stroke Risk Factors Admission Data Admit Date/Time: 07/09/19 09:20 Attending Provider: George Farmer Admit Provider: Franklin Foster Primary Care Provider: Eric Castro Other Providers: Paulie Andersen III ; Franklin Foster Other Interventions: Discharge Summary Assessment (RN) Last Done: 07/11/19 12:29 DC Date/Time DO NOT enter until pt leaves facility: 07/11/19 12:47
[2019-07-15 10:18] LABS: 18KDIGG Band NONREACTIVE (NONREACTIVE); 23KDIGG Band NONREACTIVE (NONREACTIVE); 23KDIGM Band REACTIVE (NONREACTIVE); 28KDIGG Band NONREACTIVE (NONREACTIVE); 30KDIGG Band NONREACTIVE (NONREACTIVE); 39KDIGG Band NONREACTIVE (NONREACTIVE); 39KDIGM Band NONREACTIVE (NONREACTIVE); 41KDIGG Band REACTIVE (NONREACTIVE); 41KDIGM Band NONREACTIVE (NONREACTIVE); 45KDIGG Band NONREACTIVE (NONREACTIVE); 58KDIGG Band NONREACTIVE (NONREACTIVE); 66KDIGG Band REACTIVE (NONREACTIVE); 93KDIGG Band NONREACTIVE (NONREACTIVE); Lyme Antibodies, WB IgG NEGATIVE (NEGATIVE); Lyme Antibodies, WB IgM NEGATIVE (NEGATIVE)
== END 2019-07-11 12:47 | disposition home or self-care (01) | DRG 103 ==
LOC: ED 08:16 → SUATTDRO 09:20 → 1E 09:20 → 2S 13:39

== ENCOUNTER 2022-04-23 13:14 | Observation (INO) ==
[2022-04-23 13:59] LABS: Basophils # (auto) 0.03 K/uL (0-0.2); Basophils % (auto) 0.6 %; Eosinophils # (auto) 0.08 K/uL (0-0.50); Eosinophils % (auto) 1.6 %; Hematocrit (blood only) 43.7 % (40.1-51.0); Hemoglobin 14.9 g/dl (14.0-18.0); Lymphocytes # (auto) 1.55 K/uL (1.2-3.4); Mean Corpuscular Hemoglobin 32.5 pg (25.0-34.0); Mean Corpuscular Hgb Conc 34.1 g/dL (32.0-36.0); Mean Corpuscular Volume 95.2 fL (80.0-100.0); Mean Platelet Volume 9.7 fL (9.4-12.4); Monocytes # (auto) 0.64 K/uL (0.24-0.82); Monocytes % (auto) 12.8 %; Platelet Count 178 K/uL (130-400); RDW Coefficient of Variation 12.9 % (11.5-14.5); RDW Standard Deviation 45.2 fL (36.4-46.3); Red Blood Count 4.59 M/uL (4.63-6.08)
--- NOTE | 2022-04-23 14:09 | Emergency Department Note ---
Impression & Plan Transient cerebral ischemia, Hypertension, Chest pain ED Provider Note NAME: KIMMY FERRELL AGE: 72 SEX: M : 1950 ARRIVES VIA: Walk-In INFORMANT: Patient ED PROVIDER(S): George Flynn DO CHIEF COMPLAINT: Left-sided weakness HPI: Patient is a 72-year-old male who presents to the ER for left-sided weakness. This started 2 days ago. Has gotten better today. He associates numbness as well with the left-sided weakness in his left upper and left lower e xtremity. 2 days ago he could barely walk and he needed assistance yesterday. Today he is doing better. He also notes that he is intermittently getting some exertional chest pain over the past week. It resolves with rest. Denies any headache or change in vision. No chest pain at this time. No belly pain, nausea, vomiting, or diarrhea. No other exacerbating or remitting factors. Previous history of a CVA. ROS: See above HPI for pertinent positives & negatives. A total of 10 systems reviewed and were otherwise negative. PAST MEDICAL HISTORY:See Below PAST SURGICAL HISTORY:See Below FAMILY HISTORY:See Below SOCIAL HISTORY:See Below HOME MEDICATIONS:See Below ALLERGIES:See Below VITALS:See Below PHYSICAL EXAMINATION: GENERAL: Sitting up in bed, alert, well appearing, well nourished, no distress, non-toxic EYE EXAM: normal conjunctiva. PERRL and EOM's intact. OROPHARYNX: no exudate, no erythema, lips, buccal mucosa, and tongue normal and mucous membranes are moist NECK: supple, no nuchal rigidity, no adenopathy, non-tender LUNGS: Clear to auscultation. Normal chest wall mechanics HEART: no murmurs, S1 normal and S2 normal ABDOMEN: abdomen soft, non-tender, normo-active bowel sounds, no masses, no rebound or guarding. UPPER EXTREMITIES: upper extremities are grossly normal. LOWER EXTREMITIES: No pitting edema. NEURO EXAM: Normal sensorium, cranial nerves II-XII intact, normal speech, no weakness of arms, no weakness of legs. No drift. Finger to nose intact. Gross sensation intact. MEDICAL DECISION MAKING: Patient is a 72-year-old male who presents the ER for left-sided weakness which is resolved along with exertional chest pain. IV was established blood work was obtained. Labs show no significant leukocytosis or anemia. INR unremarkable. BMP along with LFTs bilirubin was unremarkable. Troponin was negative. UA was clean. COVID-negative. CT as well as angios of the head and neck were negative. Chest x-ray unremarkable. Patient was completely asymptomatic while in the ER. He was updated bedside. Discussed with hospitalist admitted for further work-up. Triage Nursing notes reviewed. Limited review of prior medical records performed Vital Signs: reviewed and remarkable for no significant abnormalities Differential diagnosis: Differential Diagnosis includes but is not limited to ischemic Stroke, hemorrhagic stroke, bells palsy, mass, neoplasm, migraine headache, seizure, subarachnoid hemorrhage, TIA, and transient global amnesia. ER treatment provided: See below Diagnostics interpreted by me: ECG: Sinus rhythm rate of 61 Normal axis No PVCs QTC 398 Cardiac Monitoring: An order was placed for continuous cardiac monitoring. The monitor shows a rate of 65 with sinus rhythm. Laboratory studies: As stated above and show below. Imaging studies: CT angios of the head and neck were negative Consultation(s): Discussed with hospitalist for further evaluation Dr. Cameron Procedures: none Critical Care: None Past Med/Surg History Medical History History of stroke Surgical History History of carpal tunnel surgery of left wrist S/P cervical spinal fusion Family History Mother , in her 60s of uncertain cause No problems noted. Father , age 70 of uncertain cause No problems noted. Other No pertinent family history Social History Smoking Status: Former smoker Years Smoked: 40; Smoking End Date: 2019; Second Hand Exposure: No; Tobacco Cessation Education Requested by Patient: No Hx Alcohol Use: Yes Alcohol type: beer Alcohol Intake Frequency Comment: Two beers per day, most days. 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 Other Information That Helps Us Care for You: No other: Spent 42 years in the [employer] Feels Safe at Home: Yes Safety Concerns: Feels Safe At This Time Assistive Devices: Crutches and Glasses Allergies Allergies Allergy/AdvReac Type Severity Reaction Status Date / Time Penicillins Allergy Unknown Hives Verified 04/23/22 15:50 ampicillin AdvReac Unknown Hives Unverified 04/23/22 15:50 Home Meds Home Medications Medication Instructions Recorded Confirmed aspirin 81 mg tablet,delayed 81 mg PO DAILY 07/23/18 04/23/22 release (Regi Low Dose Aspirin) atorvastatin 10 mg tablet (Lipitor) 10 mg PO DAILY 07/23/18 04/23/22 folic acid 1 mg tablet 1 mg PO DAILY 07/23/18 04/23/22 thiamine HCl (vitamin B1) 100 mg 100 mg PO DAILY 07/23/18 04/23/22 tablet coQ10 (ubiquinol) 200 mg capsule 200 mg PO DAILY 04/23/22 04/23/22 Results & Data (ED) Vital Signs Vital Signs - 24 hr 04/23/22 13:29 04/23/22 15:13 Temperature 36.8 C Temperature Source Temporal Artery Scan Pulse Rate 68 Pulse Rate [Apical] 54 L Respiratory Rate 18 20 Respiratory Effort / Characteristics Non-Labored Respiratory Depth Normal Blood Pressure 110/67 Blood Pressure [Right Arm] 137/80 Blood Pressure Mean 81 Blood Pressure Mean [Right Arm] 99 Pulse Oximetry 97 99 Oxygen Delivery Method Room Air Room Air Sepsis Recent Fever Within 48 Hours No Sepsis New/Unexplained Change in Mental Status No Sepsis Action Taken by Nursing No Action Required Laboratory Data Result diagrams: 04/23/22 13:45 04/23/22 13:45 Lab Results 04/23/22 04/23/22 04/23/22 Range/Units 13:45 13:45 13:45 WBC 5.00 (4.8-10.8) K/ul RBC 4.59 L (4.63-6.08) M/uL Hgb 14.9 (14.0-18.0) g/dl Hct 43.7 (40.1-51.0) % MCV 95.2 (80.0-100.0) fL MCH 32.5 (25.0-34.0) pg MCHC 34.1 (32.0-36.0) g/dL RDW Std Deviation 45.2 (36.4-46.3) fL RDW Coeff of Nicola 12.9 (11.5-14.5) % Plt Count 178 (130-400) K/uL MPV 9.7 (9.4-12.4) fL Immature Gran % (Auto) 0.0 % Neut % (Auto) 54.0 % Lymph % (Auto) 31.0 % [place] % (Auto) 12.8 % Eos % (Auto) 1.6 % Baso % (Auto) 0.6 % Neut # (Auto) 2.70 (1.4-6.5) K/uL Lymph # (Auto) 1.55 (1.2-3.4) K/uL [place] # (Auto) 0.64 (0.24-0.82) K/uL Eos # (Auto) 0.08 (0-0.50) K/uL Baso # (Auto) 0.03 (0-0.2) K/uL Immature Gran # (Auto) 0.00 (0.00-0.02) K/uL PT 10.3 (9.0-12.0) Seconds INR 1.0 (0.9-1.1) APTT 26.1 (21.0-31.0) Seconds PTT Ratio 0.9 Sodium 137 (136-145) mmol/L Potassium 4.4 (3.5-5.1) mmol/L Chloride 104 (98-107) mmol/L Carbon Dioxide 29 (21-32) mmol/L Anion Gap 4 (3-11) BUN 11 (6-23) mg/dl Creatinine 0.92 (0.6-1.4) mg/dl Est Cr Clr Drug Dosing 64.9 ml/min Est GFR ( Amer) 96.0 ml/min Est GFR (Non-Af Amer) 82.8 ml/min BUN/Creatinine Ratio 12.0 (10-20) Glucose 74 (70-99(Fasting)) mg/dl Calcium 9.5 (8.5-10.1) mg/dl Magnesium 2.2 (1.7-2.4) mg/dl Total Bilirubin 0.6 (0.2-1.0) mg/dl AST 35 (13-39) U/L ALT 23 (7-52) U/L Alkaline Phosphatase 68 (34-104) U/L Troponin I High Sens 3.7 (0-20) pg/ml Total Protein 6.9 (6.0-8.3) gm/dl Albumin 4.0 (3.4-5.0) gm/dl Globulin 2.9 (2.5-4.0) gm/dl Albumin/Globulin Ratio 1.4 (0.9-2) Urine Color Urine Appearance (Clear) Urine pH (4.5-7.5) Ur Specific [place] (1.000-1.030) Urine Protein (Negative) Urine Glucose (UA) (Negative) Urine Ketones (Negative) Urine Blood (Negative) Urine Nitrite (Negative) Urine Bilirubin (Negative) Urine Urobilinogen (Negative) Ur Leukocyte Esterase (Negative) SARS-CoV-2, RNA, NAAT (NEGATIVE) 04/23/22 04/23/22 Range/Units 14:30 15:09 WBC (4.8-10.8) K/ul RBC (4.63-6.08) M/uL Hgb (14.0-18.0) g/dl Hct (40.1-51.0) % MCV (80.0-100.0) fL MCH (25.0-34.0) pg MCHC (32.0-36.0) g/dL RDW Std Deviation (36.4-46.3) fL RDW Coeff of [place]ci[place] (11.5-14.5) % Plt Count (130-400) K/uL MPV (9.4-12.4) fL Immature Gran % (Auto) % Neut % (Auto) % Lymph % (Auto) % [place] % (Auto) % Eos % (Auto) % Baso % (Auto) % Neut # (Auto) (1.4-6.5) K/uL Lymph # (Auto) (1.2-3.4) K/uL [place] # (Auto) (0.24-0.82) K/uL Eos # (Auto) (0-0.50) K/uL Baso # (Auto) (0-0.2) K/uL Immature Gran # (Auto) (0.00-0.02) K/uL PT (9.0-12.0) Seconds INR (0.9-1.1) APTT (21.0-31.0) Seconds PTT Ratio Sodium (136-145) mmol/L Potassium (3.5-5.1) mmol/L Chloride (98-107) mmol/L Carbon Dioxide (21-32) mmol/L Anion Gap (3-11) BUN (6-23) mg/dl Creatinine (0.6-1.4) mg/dl Est Cr Clr Drug Dosing ml/min Est GFR ( Amer) ml/min Est GFR (Non-Af Amer) ml/min BUN/Creatinine Ratio (10-20) Glucose (70-99(Fasting)) mg/dl Calcium (8.5-10.1) mg/dl Magnesium (1.7-2.4) mg/dl Total Bilirubin (0.2-1.0) mg/dl AST (13-39) U/L ALT (7-52) U/L Alkaline Phosphatase (34-104) U/L Troponin I High Sens (0-20) pg/ml Total Protein (6.0-8.3) gm/dl Albumin (3.4-5.0) gm/dl Globulin (2.5-4.0) gm/dl Albumin/Globulin Ratio (0.9-2) Urine Color Yellow Urine Appearance Clear (Clear) Urine pH 6.5 (4.5-7.5) Ur Specific [place] 1.013 (1.000-1.030) Urine Protein Negative (Negative) Urine Glucose (UA) Negative (Negative) Urine Ketones Negative (Negative) Urine Blood Negative (Negative) Urine Nitrite Negative (Negative) Urine Bilirubin Negative (Negative) Urine Urobilinogen Negative (Negative) Ur Leukocyte Esterase Negative (Negative) SARS-CoV-2, RNA, NAAT NEGATIVE (NEGATIVE) Administered Medications Discontinued Medications Ioversol (Optiray 320 125ml) 118 ml IV ONCE ONE Stop: 04/23/22 15:10 Last Admin: 04/23/22 15:10 Dose: 118 ml Documented By: [facility] Imaging Data Radiologist's Impression: Chest X-Ray 04/23/22 13:44 XR chest 1V portable HISTORY: Stroke Like Symptoms COMPARISON: Chest CT 12/01/2019. FINDINGS: The lungs are clear. Cardiac silhouette is normal in size. No pleural effusions. No pneumothorax. Cervical spinal fusion hardware is again noted. IMPRESSION: No acute process. ACT 112: Negative or not required by law. Electronically signed by: Gallo Stafford M.D. 04/23/2022 2:[address] 04/23/22 13:44 CT OF THE HEAD WITHOUT CONTRAST CLINICAL HISTORY: Stroke Like Symptoms COMPARISON STUDY: MRI of the brain, head CT and CTA of the head July 09, 2019. CT DOSE: 1087.68 mGy.cm TECHNIQUE: Helical axial images of the head were obtained without IV contrast. Automated exposure control was utilized for the study. A dose lowering technique was utilized adhering to the principles of ALARA. FINDINGS: No acute intracranial hemorrhage, midline shift or mass effect is present. The ventricular system is unremarkable. The basal cisterns are patent. No extra-axial collections are present. There are no findings to suggest acute dural sinus thrombosis or acute territorial infarct. No significant calvarial abnormalities are present. There are secretions within the left sphenoid sinus. IMPRESSION: No acute intracranial findings. ACT 112: Negative or not required by law. Electronically signed by: Kirill Mccall M.D. 04/23/2022 3:22 PM Head CTA 04/23/22 13:44 HEAD CTA HISTORY: Stroke Like Symptoms TECHNIQUE: Multiaxial CT images of the head were performed both following the intravenous administration of contrast to evaluate the major cerebral vessels. Maximum intensity projection images were also obtained. A dose lowering technique was utilized adhering to the principles of ALARA. COMPARISON: Head CTA 07/09/2019. FINDINGS: There is no mass, hematoma, midline shift, or acute infarct. Visualized intracranial internal carotid arteries, distal vertebral arteries, and basilar artery are widely patent. There is no significant stenosis, occlusion, or aneurysm seen within the bilateral ACAs, MCAs, or chemistry account manager. The major dural venous sinuses are patent. IMPRESSION: No significant stenosis, occlusion, or aneurysm within the [place]. ACT 112: Negative or not required by law. Electronically signed by: Gallo Stafford M.D. 04/23/2022 3:43 PM Neck CTA 04/23/22 13:44 NECK CTA HISTORY: Stroke Like Symptoms TECHNIQUE: Multiaxial CT images of the neck were performed following the intravenous administration of contrast to evaluate the major cervical vessels. Maximum intensity projection images were also obtained. All measurements were calculated based on NASCET criteria. A dose lowering technique was utilized adhering to the principles of ALARA. COMPARISON STUDY: Neck CTA 07/09/2019. FINDINGS: The aortic arch and proximal great vessels are widely patent. Moderate calcified plaque within the bilateral carotid bifurcations. This results in approximately 50-70% stenosis within the proximal right internal carotid artery and 50% stenosis within the proximal left internal carotid artery. The bilateral common carotid and vertebral arteries are widely patent. Stable mild fusiform aneurysmal dilatation of the distal left vertebral artery measuring approximately 5 mm. IMPRESSION: 1. No evidence for occlusion or dissection within the carotid or vertebral nuvia earl. 2. No significant change in the bilateral proximal internal carotid artery stenosis as described above. 3. 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 ACT 112: Negative or not required by law. Electronically signed by: Gallo Stafford M.D. 04/23/2022 3:40 PM Discharge Plan Visit Data Chief Complaint: Stroke/CVA Symptoms Stated Complaint: DOC ED Provider: George Flynn Discharge Problem: Transient cerebral ischemia, Hypertension, Chest pain Discharge Instructions Interventions: ED Discharge Assessment Last Done: 04/23/22 17:32
[2022-04-23 14:10] LABS: Partial Thromboplastin Ratio 0.9; Partial Thromboplastin Time 26.1 Seconds (21.0-31.0); Prothrombin Time 10.3 Seconds (9.0-12.0)
--- NOTE | 2022-04-23 14:24 | XRay Report ---
XR chest 1V portable HISTORY: Stroke Like Symptoms COMPARISON: Chest CT 12/01/2019. FINDINGS: The lungs are clear. Cardiac silhouette is normal in size. No pleural effusions. No pneumot horax. Cervical spinal fusion hardware is again noted. IMPRESSION: No acute process. ACT 112: Negative or not required by law. Electronically signed by: Gallo Stafford M.D. 04/23/2022 2:22 PM
[2022-04-23 14:31] LABS: Albumin Globulin Ratio 1.4 (0.9-2); Bilirubin,Total 0.6 mg/dl (0.2-1.0); Calcium 9.5 mg/dl (8.5-10.1); Creatinine Clr Calc Pharmacy 64.9 ml/min; Est GFR (Non-African American) 82.8 ml/min; Globulin 2.9 gm/dl (2.5-4.0); Magnesium 2.2 mg/dl (1.7-2.4); Potassium 4.4 mmol/L (3.5-5.1); Total Protein 6.9 gm/dl (6.0-8.3)
[2022-04-23 14:34] LABS: Troponin I High Sensitivity 3.7 pg/ml (0-20)
[2022-04-23] MEDS ORDERED: OPTIRAY 320 125ml IV ONE (15:09)
--- NOTE | 2022-04-23 15:24 | CT Scan Report ---
CT OF THE HEAD WITHOUT CONTRAST CLINICAL HISTORY: Stroke Like Symptoms COMPARISON STUDY: MRI of the brain, head CT and CTA of the head July 09, 2019. CT DOSE: 1087.68 mGy.cm TECHNIQUE: Helical axial images of the head were obtained without IV contrast. Automated exposure con trol was utilized for the study. A dose lowering technique was utilized adhering to the principles o f ALARA. FINDINGS: No acute intracranial hemorrhage, midline shift or mass effect is present. The ventricular system is unremarkable. The basal cisterns are patent. No extra-axial collections are present. There are no findings to suggest acute dural sinus thrombosis or acute territorial infarct. No significant calvarial abnormalities are present. There are secretions within the left sphenoid sinus. IMPRESSION: No acute intracranial findings. ACT 112: Negative or not required by law. Electronically signed by: Kirill Mccall M.D. 04/23/2022 3:22 PM
--- NOTE | 2022-04-23 15:42 | CT Scan Report ---
NECK CTA HISTORY: Stroke Like Symptoms TECHNIQUE: Multiaxial CT images of the neck were performed following the intravenous administration o f contrast to evaluate the major cervical vessels. Maximum intensity projection images were also obta ined. All measurements were calculated based on NASCET criteria. A dose lowering technique was utili zed adhering to the principles of ALARA. COMPARISON STUDY: Neck CTA 07/09/2019. FINDINGS: The aortic arch and proximal great vessels are widely patent. Moderate calcified plaque wi thin the bilateral carotid bifurcations. This results in approximately 50-70% stenosis within the pro ximal right internal carotid artery and 50% stenosis within the proximal left internal carotid artery . The bilateral common carotid and vertebral arteries are widely patent. Stable mild fusiform aneurys mal dilatation of the distal left vertebral artery measuring approximately 5 mm. IMPRESSION: 1. No evidence for occlusion or dissection within the carotid or vertebral arteries. 2. No significant change in the bilateral proximal internal carotid artery stenosis as described abov e. 3. 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 ACT 112: Negative or not required by law. Electronically signed by: Gallo Stafford M.D. 04/23/2022 3:40 PM
--- NOTE | 2022-04-23 15:44 | CT Scan Report ---
HEAD CTA HISTORY: Stroke Like Symptoms TECHNIQUE: Multiaxial CT images of the head were performed both following the intravenous administrat ion of contrast to evaluate the major cerebral vessels. Maximum intensity projection images were also obtained. A dose lowering technique was utilized adhering to the principles of ALARA. COMPARISON: Head CTA 07/09/2019. FINDINGS: There is no mass, hematoma, midline shift, or acute infarct. Visualized intracranial customer marketing intern al carotid arteries, distal vertebral arteries, and basilar artery are widely patent. There is no sig nificant stenosis, occlusion, or aneurysm seen within the bilateral ACAs, MCAs, or peat shredder tender. The major du ral venous sinuses are patent. IMPRESSION: No significant stenosis, occlusion, or aneurysm within the [place]. ACT 112: Negative or not required by law. Electronically signed by: Gallo Stafford M.D. 04/23/2022 3:43 PM
[2022-04-23 15:50] LABS: Appearance Urine Clear (Clear); Bilirubin Urine Negative (Negative); Blood Urine Negative (Negative); Color Urine Yellow; Glucose Urine UA Negative (Negative); Ketones Urine Negative (Negative); Leukocyte Esterase Urine Negative (Negative); Nitrite Urine Negative (Negative); Protein Urine Negative (Negative); Specific Gravity Urine 1.013 (1.000-1.030); Urobilinogen Urine Negative (Negative); pH Urine 6.5 (4.5-7.5)
--- NOTE | 2022-04-23 16:01 | History & Physical Report ---
Date of Service April 23, 2022 Assessment & Plan (1) CVA (cerebral vascular accident): Plan: Possible diagnosis of CVA with left-sided subjective weakness and loss of sensation. However, on exam, I do not really find any deficits as his strength is 5/5 and symmetric. Light touch sensation is intact throughout. This presentation is very similar to his 09/2017 & 06/2019 presentations. In 09/2017, he actually received tPA and was felt to be a TIA. In 06/2019, it was thought to be more complex migraine in the end. - MRI brain - Limited echo (just to compare from 2019 echo) - Telemetry - Neurology consulted - A1c, FLP - PT/OT - Bedside swallow should be sufficient as patient reports no dysarthria or trouble swallowing. - Continue ASA, statin. At this time, will keep dosing stable given this is his third presentation with similar issue and the priors have not been conclusively thought to be stroke. 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 Phillips, but patient and are not sure.) - If above work-up is unrevealing, would consider this another episode of complex migraine. Previously, Dr. Andersen had recommended verapamil, but if it is only occurring once every 2-3 years, would abortive therapy be sufficient with a triptan? Defer to neurology. (2) Chest pain: Plan: Reports 3 days of left-sided chest pain that occur with exertion and resolve with rest. Prior to 3 days ago though, he reports he had no exercise limitations and could have walked a mile or more without issue. - Initial troponin was 3.7 in the ER. Given symptoms have been ongoing for 3 days, this r/o MS. EKG stable from 2019. - Heart score of 3 (age & risk factors). Could consider stress test inpatient vs outpatient once acute medical issues are investigated. Follows with Dr. Umanzor. (3) DVT prophylaxis: Plan: Lovenox 40 mg SQ daily History of Present Illness Primary Care Provider: Eric Castro 72yo M w/ hx of prior remote stroke (1998 per patient and ) who presents with left sided upper and lower weakness and loss of coordination. Patient reports that the loss began about 3 days ago, and has been steady since then. He notes it as a subjective feeling of being not quite as strong and also feeling a loss of sensation and coordination. He specifically denies any changes in speech, swallowing, talking, or other facial symptoms. Nothing makes this sensation better or worse. He notes that he had an episode like this several years ago that was thought to possibly be a "mini-stroke." He also reports 3 days of left-sided chest pain that occur with exertion and resolve with rest. Prior to 3 days ago though, he reports he had no exercise limitations and could have walked a mile or more without issue. Allergies Allergy/AdvReac Type Severity Reaction Status Date / Time Penicillins Allergy Unknown Hives Verified 04/23/22 15:50 ampicillin AdvReac Unknown Hives Unverified 04/23/22 15:50 Home Medications Medication Instructions Recorded Confirmed Type aspirin 81 mg tablet,delayed 81 mg PO DAILY 07/23/18 04/23/22 History release (Regi Low Dose Aspirin) atorvastatin 10 mg tablet (Lipitor) 10 mg PO DAILY 07/23/18 04/23/22 History folic acid 1 mg tablet 1 mg PO DAILY 07/23/18 04/23/22 History thiamine HCl (vitamin B1) 100 mg 100 mg PO DAILY 07/23/18 04/23/22 History tablet coQ10 (ubiquinol) 200 mg capsule 200 mg PO DAILY 04/23/22 04/23/22 History Past Med/Surg History Medical History History of stroke Surgical History History of carpal tunnel surgery of left wrist S/P cervical spinal fusion Family History Mother , in her 60s of uncertain cause No problems noted. Father , age 70 of uncertain cause No problems noted. Other No pertinent family history Social History Smoking Status: Never smoker Years Smoked: 40; Second Hand Exposure: No; Hx Alcohol Use: Yes Alcohol type: beer Alcohol Intake Frequency Comment: Two beers per day, most days. 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 other: Spent 42 years in the [employer] Feels Safe at Home: Yes Assistive Devices: Glasses Review of Systems Review of Systems: All systems reviewed & are unremarkable except as noted in HPI & below Physical Exam Constitutional: WD/WN, vitals as above Eyes: EOM intact bilaterally; no conjunctival abnormality ENMT: external ear and nose normal, oropharynx normal Neck: trachea midline, no thyromegaly normal visual inspection Respiratory: normal respiratory effort, lungs clear to auscultation no respiratory distress Cardiovascular: RRR, no murmur, no edema Gastrointestinal (Abdomen): Inspection/Auscultation: abdomen normal to inspection; abdomen not distended Musculoskeletal: no cyanosis or clubbing, extremities motor strength 5/5 Skin: no rashes, warm and dry Neurologic: PERRL, EOMI, accommodation nl, no face palsy, no dysarthria moves all extremities and awake Motor/Sensory: normal movement, no fasciculations and no sensory deficit Strength appears symmetric and 5/5 throughout. No changes in light touche sensation. Psychiatric: Orientation: alert, oriented to person and cooperative Results & Data Results & Data ([facility]) Vital Signs (Past 12 Hours) Vital Signs Temp Pulse Pulse Resp BP BP Pulse Ox 04/23/22 15:13 54 L 20 137/80 99 04/23/22 13:29 36.8 C 68 18 110/67 97 O2 Del Method 04/23/22 15:13 Room Air 04/23/22 13:29 Room Air Code Status & VTE Plan VTE Prophylaxis Plan VTE Prophylaxis will be ordered: Yes PG Care Time/CCT Total # of Minutes Spent Total Time Spent with Patient: Total time spent is greater than 50% in coordination of care (as documented) at patient's floor/unit and/or counseling patient: Coding Level of Care Code 72159 Initial Inpt Care Lvl 3 Diagnoses CVA (cerebral vascular accident) I63.9 Chest pain R07.9 DVT prophylaxis Z29.9
[2022-04-23] MEDS ORDERED: ONDANSETRON INJ 2 MG/ML 2 ML VIAL IV PRN (17:34)
[2022-04-23] MEDS ORDERED: ACETAMINOPHEN 325 MG TAB PO PRN (17:34)
--- NOTE | 2022-04-23 19:15 | Magnetic Resonance Report ---
Brain MRI WITHOUT CONTRAST HISTORY: Possible CVA, left-sided weakness and loss of coordination TECHNIQUE: Multiplanar multisequence MRI of the brain was performed without the use of contrast. COMPARISON STUDY: Head CT 04/23/2022. FINDINGS: There is no mass, hematoma, midline shift, or acute infarct. The mastoid air cells are jazmin r. The ventricles and sulci demonstrate mild age-related involutional changes. Scattered foci of T2 h yperintensity seen within the periventricular and subcortical white matter are nonspecific but sugges tive of mild microvascular ischemic changes. The major vascular flow voids at the skull base are well -maintained. Mild mucosal thickening within the sphenoid sinuses. IMPRESSION: No acute intracranial abnormality. ACT 112: Negative or not required by law. Electronically signed by: Gallo Stafford M.D. 04/23/2022 7:13 PM
--- NOTE | 2022-04-24 08:57 | Neurology Consultation ---
Date of Consultation April 24, 2022 Assessment & Plan (1) Stroke-like episode: (2) Complicated migraine: (3) Carotid stenosis, bilateral: Plan 72-year-old male who has had at least 3 very similar episodes over the past 4 years, characterized by sudden onset left-sided weakness, sensory loss, left- sided vision disturbance, low-grade headache, and left-sided chest discomfort. He did receive tPA for an episode that occurred in 2018. These episodes occur in the context of bilateral moderate proximal internal carotid artery stenosis, right greater than left. He is a former chewing tobacco user, quit a few years ago. The episodes may be consistent with recurrent TIA although I tend to favor complicated migraine. (Symptomatic carotid stenosis would be much more likely to result in ipsilateral vision loss or disturbance/amaurosis fugax. However, in this patient's case, his vision disturbance is contralateral to his more significant carotid stenosis and on the same side as his motor and sensory symptoms.) He is currently asymptomatic and neurologically intact. Given the possibility of recurrent TIA (in spite of the localization inconsistencies) I would recommend switching from daily low-dose aspirin to clopidogrel 75 mg/day. Furthermore, given that he does have bilateral carotid stenosis of at least moderate severity, right greater than left, I would also recommend increasing his dosage of atorvastatin. Would also follow-up with the results of up-to-date fasting lipid panel. Follow-up with results of echocardiogram. Would also recommend 30-day mobile cardiac outpatient telemetry. Would also consider a trial of verapamil ER 120 mg/day for complicated migraine prophylaxis. However, patient's heart rate and blood pressure are low-normal and the frequency of the above episodes is quite low, less than 1/year. It would be difficult to monitor for efficacy and it is possible he could have some difficulty tolerating verapamil. Would also ask for an opinion with vascular surgery regarding the 50 to 70% right proximal carotid stenosis, especially given his recurrent strokelike presentation. However, it is difficult to determine if this moderate stenosis is clinically significant and I suspect the surgical risk would outweigh the benefit of surgical intervention at this point in time. History of Present Illness Reason for Consultation: stroke? Requesting Physician: Jose De Jesus Cameron MD Attending Physician: Branden Mcdermott MD History of Present Illness The patient is a 72-year old male with a chief complaint of left-sided numbness, associated vision change, and headache. Symptoms began abruptly yesterday afternoon, initially numbness affecting the left leg, quickly followed by numbness of the left arm and slightly around the left eye. He also perceives some difficulty focusing his vision with the left eye only and experiencing associated left-sided low to medium grade headache, and left-sided chest pain. He complained of the left leg felt weak and he was unable to bear weight. Symptoms persisted for about 45 minutes before he decided to have his take him to the emergency department for further evaluation. Indicates that his symptoms largely resolved by the time he presented to the emergency department, however. He has had at least 2 other very similar episodes previously for which she was evaluated at [facility]. Last episode occurred in June 2019, characterized by left-sided numbness, weakness, vision loss to the left, and low-grade headache. He was seen by Dr. Andersen in neurological consultation at that time. Prior to that, I had seen him in September 2017 during admission to the [facility] for very similar symptomatology, left-sided weakness, associated left sided chest pain and pressure, vision loss to the left, mild headache. He did receive tPA for for the September 2017 presentation. His neuroimaging evaluations have never disclosed any acute abnormalities such as acute or subacute stroke. His CT angiography has suggested a moderate stenosis of the proximal bilateral ICAs, right greater than left, not significantly changed on most recent CTA. 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 He quit chewing tobacco a few years ago. He takes a low-dose of atorvastatin and daily low-dose aspirin as an outpatient. Looks like clopidogrel was recommended after his admission to the [facility] in June 2019. It does not appear as if he has continued with this medication, however. In addition to recurrent stroke or TIA, complicated migraine has been considered a possible diagnosis for this patient. He denies a history of more typical migraine headache, however. No history of seizure disorder. Retired from the [employer]. Denies any other significant active health issues, no recent infections, vaccinations, injuries, or other illness. Allergies Allergy/AdvReac Type Severity Reaction Status Date / Time Penicillins Allergy Unknown Hives Verified 04/23/22 15:50 ampicillin AdvReac Unknown Hives Unverified 04/23/22 15:50 Home Medications Medication Instructions Recorded Confirmed Type aspirin 81 mg tablet,delayed 81 mg PO DAILY 07/23/18 04/23/22 History release (Regi Low Dose Aspirin) atorvastatin 10 mg tablet (Lipitor) 10 mg PO DAILY 07/23/18 04/23/22 History folic acid 1 mg tablet 1 mg PO DAILY 07/23/18 04/23/22 History thiamine HCl (vitamin B1) 100 mg 100 mg PO DAILY 07/23/18 04/23/22 History tablet coQ10 (ubiquinol) 200 mg capsule 200 mg PO DAILY 04/23/22 04/23/22 History Patient History Medical History History of stroke Surgical History History of carpal tunnel surgery of left wrist S/P cervical spinal fusion Family History Mother , in her 60s of uncertain cause No problems noted. Father , age 70 of uncertain cause No problems noted. Other No pertinent family history Social History Smoking Status: Former smoker Years Smoked: 40; Smoking End Date: 2018; Second Hand Exposure: No; Tobacco Cessation Education Requested by Patient: No Hx Alcohol Use: Yes Alcohol type: beer Alcohol Intake Frequency Comment: Two beers per day, most days. 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 Other Information That Helps Us Care for You: No other: Spent 42 years in the [employer] Feels Safe at Home: Yes Safety Concerns: Feels Safe At This Time Assistive Devices: Crutches and Glasses Review of Systems Constitutional: no fever and no chills Eyes: as per Subjective / HPI; no diplopia and no photophobia Ear, Nose, Mouth, Throat: no ear pain and no hearing loss Respiratory: no cough and no dyspnea Cardiovascular: as per Subjective / HPI and + chest pain Gastrointestinal: no nausea and no vomiting Genitourinary: no dysuria Musculoskeletal: no back pain, no neck pain and no myalgia Integumentary: no rash and no lesions Neurologic: as per Subjective / HPI Psychiatric: no depression and no anxiety Hematologic / Lymphatic: no easy bleeding and no easy bruising Exam (Neuro) Constitutional: well developed and well nourished; no acute distress Eyes: normal visual heller by confrontation, PERRL, normal accommodation and EOM intact bilaterally; no fundoscopic abnormality, no nystagmus and no papilledema Cardiovascular: Vessels: normal carotid upstroke; no carotid bruit Neurologic: Oriented to:: Person, Place and Time Memory: Short Term Intact and Remote Intact Attention: Span Intact and Concentration Intact Language: Naming Objects and Repeating Phrases Speech Fluency: negative Dysarthria Speech Aphasia: negative Aphasia Fund of Knowledge: Current Events, Past History and Vocabulary Cranial Nerves: Normal II (Visual heller full to confrontation, visual acuity normal), III, IV, (Pupils equal round reactive to light and accommodation, eye movements normal), V (Facial sensation intact), VII (There is no facial droop or weakness), VIII (Hearing intact), IX, X (Palate elevates to midline), XI (Shoulder shrug intact) and XII (Tongue protrudes to midline) Motor Strength: Normal Lower Extremities and Normal Upper Extremities; negative Pronator Drift Motor Tone: Normal Lower Extremities and Normal Upper Extremities Muscle Bulk/Involuntary Movements: No Involuntary Movements; negative Muscle Atrophy Sensation: Light Touch Intact, Pain/Temperature Intact, Vibration Intact and Proprioception Intact Coordination: Normal; negative Limited Balance, Dysdiadochokinesia, Finger-Nose Abnormal or Heel-Lazar Abnormal Deep Tendon Reflexes: Rt Triceps: 2+, Lt Triceps: 2+, Rt Biceps: 2+, Lt Biceps: 2+, Rt Brachioradialis: 2+, Lt Brachioradialis: 2+, Rt Patellar: 2+, Lt Patellar: 2+, Rt Ankle: 2+ and Lt Ankle: 2+ Special Tests: negative Babinski Present Gait: Normal Station and Gait Results & Data ([facility]) Vital Signs (Past 12 Hours) Vital Signs Temp Pulse Pulse Resp BP Pulse Ox O2 Del Method 04/24/22 08:27 36.6 C 60 16 110/60 97 Room Air 04/24/22 03:27 36.8 C 53 L 18 118/72 96 Room Air 04/23/22 23:26 36.6 C 52 L 18 135/77 98 Room Air 04/23/22 21:25 36.8 C 61 18 122/76 97 Room Air 04/23/22 21:07 57 L 18 164/92 H 98 Room Air Laboratory Results WBC 5.00, hemoglobin 14.9, hematocrit 43.7, MCV 95.2, platelet count 178, sodium 137, potassium 4.4, BUN 11, creatinine 0.92, glucose 74, calcium 9.5, magnesium 2.2, AST 35, ALT 23, SARS-CoV-2 RNA negative. Lipid panel from 2019 reviewed. Triglycerides 87, cholesterol 141, LDL 60, VLDL 17, HDL 64. Diagnostic Findings CT of the head negative for hemorrhage or acute process. CT angiogram of the neck negative for occlusion or dissection within the carotid or vertebral arteries. No significant change in the bilateral proximal internal carotid artery stenosis, 50 to 70% on the right, 50% on the left. Stable mild fusiform aneurysmal dilatation of the distal left vertebral artery measuring 5 mm seen as well. Brain MRI negative for acute process, no acute or subacute stroke, no hemorrhage. There is evidence of chronic scattered microvascular ischemic disease. I independently reviewed these images and agree with the findings as described above by the interpreting radiologist. Electrocardiogram reveals a normal sinus rhythm, 61 bpm. Coding Level of Care Code 54026 Initial In Care Lvl 3 Diagnoses Stroke-like episode R29.90 Complicated migraine G43.109 Carotid stenosis, bilateral I65.23
[2022-04-24] MEDS ORDERED: FOLIC ACID 1 MG TAB PO SCH (09:00)
[2022-04-24] MEDS ORDERED: THIAMINE HCL 100 MG TAB PO SCH (09:00)
[2022-04-24] MEDS ORDERED: ATORVASTATIN 10 MG TAB PO SCH (09:00)
[2022-04-24] MEDS ORDERED: ASPIRIN 81 MG ECTAB PO SCH (09:00)
[2022-04-24] MEDS ORDERED: ENOXAPARIN INJ 40 MG/0.4 ML SYR SQ SCH (09:00)
[2022-04-24 09:07] LABS: Hematocrit (blood only) 42.2 % (40.1-51.0); Hemoglobin 14.6 g/dl (14.0-18.0); Mean Corpuscular Hemoglobin 32.7 pg (25.0-34.0); Mean Corpuscular Hgb Conc 34.6 g/dL (32.0-36.0); Mean Corpuscular Volume 94.4 fL (80.0-100.0); Mean Platelet Volume 9.9 fL (9.4-12.4); Platelet Count 181 K/uL (130-400); RDW Standard Deviation 44.8 fL (36.4-46.3); Red Blood Count 4.47 M/uL (4.63-6.08); White Blood Count 4.47 K/ul (4.8-10.8)
[2022-04-24 09:35] LABS: Chol HDL Ratio 2.9 (0-5); Est GFR (African American) 94.7 ml/min; Est GFR (Non-African American) 81.7 ml/min; Magnesium 2.2 mg/dl (1.7-2.4); Potassium 3.9 mmol/L (3.5-5.1)
[2022-04-24 09:59] LABS: Estimated Average Glucose 123 mg/dl; Hemoglobin A1C 5.9 % (4.5-5.6)
[2022-04-24] MEDS ORDERED: CLOPIDOGREL BISULFATE 75 MG TAB PO ONE (11:09)
[2022-04-24] MEDS ORDERED: ATORVASTATIN 10 MG TAB PO STA (11:28)
--- NOTE | 2022-04-24 11:31 | Electrocardiogram Report ---
Test Reason : Blood Pressure : / mmHG Vent. Rate : 061 BPM Atrial Rate : 061 BPM P-R Int : 180 ms QRS Dur : 088 ms QT Int : 396 ms P-R-T Axes : 035 065 068 degrees QTc Int : 398 ms Normal sinus rhythm Voltage criteria for left ventricular hypertrophy Abnormal ECG When compared with ECG of 10-JUL-2019 01:13, No significant change was found Confirmed by Albert Young ([id number]) on 04/24/2022 11:31:13 AM Referred By: REFERRED SELF Confirmed By:Albert Young
--- NOTE | 2022-04-24 13:37 | Discharge Summary ---
Date of Service April 24, 2022 Admission HPI Per Admitting Provider 72yo M w/ hx of prior remote stroke (1998 per patient and ) who presents with left sided upper and lower weakness and loss of coordination. Patient reports that the loss began about 3 days ago, and has been steady since then. He notes it as a subjective feeling of being not quite as strong and also feeling a loss of sensation and coordination. He specifically denies any changes in speech, swallowing, talking, or other facial symptoms. Nothing makes this sensation better or worse. He notes that he had an episode like this several years ago that was thought to possibly be a "mini-stroke." He also reports 3 days of left-sided chest pain that occur with exertion and resolve with rest. Prior to 3 days ago though, he reports he had no exercise limitations and could have walked a mile or more without issue. Principal Diagnosis Suspected complex migraine Possible transient ischemic attack Discharge Exam Constitutional WD/WN, vitals as above Respiratory normal respiratory effort, lungs clear to auscultation Cardiovascular RRR, no murmur, no edema Gastrointestinal (Abdomen) normal bowel sounds, soft, nontender, no hepatosplenomegaly Neurologic CN's II-XI intact bilaterally, moves all extremities and awake; no focal motor deficits and not confused Motor/Sensory: no sensory deficit Discharge Data Allergies Allergy/AdvReac Type Severity Reaction Status Date / Time Penicillins Allergy Unknown Hives Verified 04/23/22 15:50 ampicillin AdvReac Unknown Hives Unverified 04/23/22 15:50 Consultations 04/23/22 15:32 ED Decision to Admit Stat 04/23/22 17:34 Consult Neurology Routine Ordered Studies 04/23/22 13:44 CT angio head w con Stat IMPRESSION: No significant stenosis, occlusion, or aneurysm within the pauma of [place]. CT angio neck with con Stat IMPRESSION: 1. No evidence for occlusion or dissection within the carotid or vertebral arteries. 2. No significant change in the bilateral proximal internal carotid artery stenosis as described above. 3. 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 CT head/brain wo con Stat IMPRESSION: No acute intracranial findings. 04/23/22 17:34 MR brain wo con Routine IMPRESSION: No acute intracranial abnormality. Hospital Course (1) CVA (cerebral vascular accident): Robin Vidal is a 72 year old male who presents to the ER were observed at [facility] from April 23 to 2021 due to strokelike symptoms. Brain MRI negative for stroke. These are similar to his previous episodes and most likely represent complex migraines however due to concern for possible transient ischemic attack neurology recommended switching from aspirin to clopidogrel and increasing atorvastatin from 10 mg to 40 mg p.o. daily. Recommend following up with neurology to discuss future episodes and when his would need to return to the emergency room. He also noted some chest pain which has lasted for hours. No regional wall abnormalities on resting echocardiogram. Serial high sensitivity troponins negative. Consider stress echo as outpatient if these pains continue. (2) Chest pain: (3) DVT prophylaxis: Total Time Total Time Spent Total Time Spent (In Minutes): 40 Discharge Plan Discharge Items Patient Disposition: Home - Self-Care Reason For Visit: POSSIBLE CVA Discharge Diagnosis: TIA - transient ischemia attack vs. complex migraine Activity: Resume your previous activity Non-emergency contact: Primary Care Provider Call non-emergency contact if: you have any medication questions and your symptoms worsen Follow-up/Referrals: Rafy Davis MD [Physician] - (Follow up TIA vs. complex migraine) Eric Castro [Primary Care Provider] - Diet: Heart Healthy Addtl Attending Provider Instructions: You were observed at [facility] from April 23 to 2021 due to strokelike symptoms. These are similar to your previous episodes and most likely represent complex migraines however due to concern for possible transient ischemic attack switching from aspirin to clopidogrel was recommended by neurology and increasing atorvastatin to 40 mg p.o. daily. Recommend following up with neurology to discuss future episodes and when you need to return to the emergency room. Pending Studies at Discharge: No Stand-Alone Forms: My [facility], Smoking Cessation Medications and DC Order Prescriptions: New atorvastatin 40 mg Tablet 40 mg PO DAILY Qty: 30 0RF clopidogrel 75 mg tablet 75 mg PO DAILY Qty: 30 0RF Continued thiamine HCl (vitamin B1) 100 mg Tablet 100 mg PO DAILY folic acid 1 mg Tablet 1 mg PO DAILY coQ10 (ubiquinol) 200 mg Capsule 200 mg PO DAILY Discontinued atorvastatin [Lipitor] 10 mg Tablet 10 mg PO DAILY aspirin [Regi Low Dose Aspirin] 81 mg Tablet,Delayed Release (Dr/Ec) 81 mg PO DAILY Discharge Orders: Discharge Order (Routine); Ordered 04/24/22 Ordered By: Branden Mcdermott Admission Data Admit Date/Time: 04/23/22 15:59 Attending Provider: Branden Mcdermott Admit Provider: Jose De Jesus Cameron Primary Care Provider: Eric Castro Other Providers: Jose De Jesus Cameron ; Paulie Andersen Other Interventions: Discharge Summary Assessment (RN) Last Done: 04/24/22 13:41 Coding Level of Care Code 16366 OBS Care - Discharge Diagnoses CVA (cerebral vascular accident) I63.9 Chest pain R07.9 DVT prophylaxis Z29.9
--- NOTE | 2022-04-24 17:06 | XCELERA ---
[id number]
[2022-04-25] MEDS ORDERED: ATORVASTATIN 40 MG TAB PO SCH (09:00)
== END 2022-04-24 13:59 | disposition home or self-care (01) | DRG 103 ==
LOC: ED 13:14 → SUATTDRO 15:59 → INTOOBSV 15:59 → EDINP 15:59 → 2N 17:32
DX: I65.23 Occlusion and stenosis of bilateral carotid arteries; Z88.1 Allergy status to other antibiotic agents; I10 Essential (primary) hypertension; Z79.82 Long term (current) use of aspirin; Z87.891 Personal history of nicotine dependence; Z88.0 Allergy status to penicillin; Z86.73 Personal history of transient ischemic attack (TIA), and cerebral infarction without residual deficits; Z79.899 Other long term (current) drug therapy; R53.1 Weakness; G43.109 Migraine with aura, not intractable, without status migrainosus